=== PATIENT | female | born 1945 | race Caucasian/White ===

== ENCOUNTER 2016-12-23 13:49 | Inpatient (IN) | payer MEDICARE ==
[2016-12-23 14:11] LABS: Glucose,Whole Blood 110 mg/dL (75-99)
[2016-12-23] MEDS ORDERED: SODIUM CHLORIDE 0.9% 1,000 ML IV STA (14:20)
[2016-12-23] MEDS ORDERED: LABETALOL 5 MG/ML VIAL MDV IVP STA ×2 (14:23→17:04)
--- NOTE | 2016-12-23 14:26 | ED ---
Dizziness HPI - General Chief Complaint: Dizziness Stated Complaint: Nausea/ Left Eye brusing Time Seen by Provider: 12/23/16 14:10 Source: family Mode of arrival: wheelchair Limitations: no limitations - History of Present Illness Initial Comments: 71 years old female family noticed that there was a change in the mental status , the conversation is not as fluent as she is also time this is her normal yesterday around 2:30 PM and at that time she was complaining about the headache then her son and [id number] came to their home and today they called around 1 PM Noticed that her conversation was not as so prominent and clear as it has been in the past has been came to her house and brought her to the ER she denies any fall but is complaining about the headache and the neck pain no chest pain or shortness of breath no abdominal pain no frequency urgency dysuria - Related Data Home Medications Medication Instructions Recorded Confirmed Multivitamins, Thera [Multivitamin 1 tab PO DAILY 12/23/16 12/23/16 (formulary)] Allergies Allergy/AdvReac Type Severity Reaction Status Date / Time No Known Allergies Allergy Verified 12/23/16 14:22 Review of Systems ROS Statement: Those systems with pertinent positive or pertinent negative responses have been documented in the HPI. ROS Other: All systems not noted in ROS Statement are negative. Past Medical History Past Medical History: No Reported History History of Any Multi-Drug Resistant Organisms: None Reported Past Surgical History: No Surgical Hx Reported Past Psychological History: No Psychological Hx Reported Smoking Status: Current every day smoker Past Alcohol Use History: None Reported Past Drug Use History: None Reported General Exam - General Exam Comments Initial Comments: General: The patient is awake and alert, in no distress, and does not appear acutely ill. GCS is 15 she is speaking slow Skin: Skin is warm and dry and no rashes or lesions are noted. Eye: Pupils are equal, round and reactive to light, extra-ocular movements are intact; there is normal conjunctiva bilaterally. Ears, nose, mouth and throat: There are moist mucous membranes and no oral lesions. Neck: The neck is supple, there is no tenderness or JVD. Cardiovascular: There is a regular rate and rhythm. No murmur, rub or gallop is appreciated. Respiratory: To auscultation bilateral, crease breath sounds bilateral Gastrointestinal: Soft, non-distended, non-tender abdomen without masses or organomegaly noted. There is no rebound or guarding present. Bowel sounds are unremarkable. Back: There is no tenderness to palpation in the midline. There is no obvious deformity. Musculoskeletal: Normal ROM, no tenderness, There is no pedal edema. There is no calf tenderness or swelling. No cords were appreciated. Neurological: CN II-XII intact, Cranial nerves III through XII are intact. There are no obvious motor or sensory deficits. Coordination appears grossly intact. Speech is normal. Psychiatric: Cooperative, appropriate mood & affect, normal judgment. Limitations: no limitations Course Vital Signs 12/23/16 12/23/16 12/23/16 13:51 14:42 15:00 Temperature 98.6 F Pulse Rate 102 H 92 68 Respiratory 18 18 18 Rate Blood Pressure 210/96 182/79 179/77 O2 Sat by Pulse 95 94 L 96 Oximetry EKG Findings - EKG Comments: EKG Findings:: Is normal sinus rhythm ventricular rate is 93 SD interval is 1: 30 QRS duration is 90 QT/QTc is 378/469 review of this EKG reveals STs ST segment depression in lead 1 and lead 2 and aVF some flattening of the T-wave in lead aVL but it seems more like artifact other leads seems to be in normal range with some depression in V6 as well Medical Decision Making - Lab Data Result diagrams: 12/23/16 14:16 12/23/16 14:16 Lab Results 12/23/16 12/23/16 12/23/16 Range/Units 14:04 14:16 14:16 WBC 13.7 H (3.8-10.6) k/uL RBC 5.00 (3.80-5.40) m/uL Hgb 15.3 (11.4-16.0) gm/dL Hct 46.8 H (34.0-46.0) % MCV 93.5 (80.0-100.0) fL MCH 30.6 (25.0-35.0) pg MCHC 32.7 (31.0-37.0) g/dL RDW 14.0 (11.5-15.5) % Plt Count 349 (150-450) k/uL Neutrophils % 75 % Lymphocytes % 19 % Monocytes % 5 % Eosinophils % 1 % Basophils % 0 % Neutrophils # 10.3 H (1.3-7.7) k/uL Lymphocytes # 2.6 (1.0-4.8) k/uL Monocytes # 0.6 (0-1.0) k/uL Eosinophils # 0.1 (0-0.7) k/uL Basophils # 0.1 (0-0.2) k/uL PT (9.0-12.0) sec INR (<1.1) Sodium 143 (137-145) mmol/L Potassium 4.2 (3.5-5.1) mmol/L Chloride 112 H (98-107) mmol/L Carbon Dioxide 22 (22-30) mmol/L Anion Gap 9 mmol/L BUN 15 (7-17) mg/dL Creatinine 0.71 (0.52-1.04) mg/dL Est GFR (MDRD) Af Amer >60 (>60 ml/min/1.73 sqM) Est GFR (MDRD) Non-Af >60 (>60 ml/min/1.73 sqM) Glucose 107 H (74-99) mg/dL POC Glucose (mg/dL) 110 H (75-99) mg/dL POC Glu Pile Driver Engineer ID Agatha Menendez Plasma Lactic Acid Noe (0.7-2.0) mmol/L Calcium 9.7 (8.4-10.2) mg/dL Total Bilirubin 0.7 (0.2-1.3) mg/dL AST 12 L (14-36) U/L ALT 23 (9-52) U/L Alkaline Phosphatase 104 (38-126) U/L Troponin I (0.000-0.034) ng/mL Total Protein 7.2 (6.3-8.2) g/dL Albumin 4.3 (3.5-5.0) g/dL Urine Color Urine Appearance (Clear) Urine pH (5.0-8.0) Ur Specific [place] (1.001-1.035) Urine Protein (Negative) Urine Glucose (UA) (Negative) Urine Ketones (Negative) Urine Blood (Negative) Urine Nitrite (Negative) Urine Bilirubin (Negative) Urine Urobilinogen (<2.0) mg/dL Ur Leukocyte Esterase (Negative) Urine RBC (0-5) /hpf Urine WBC (0-5) /hpf Ur Squamous Epith Cells (0-4) /hpf Calcium Oxalate Crystal (None) /hpf Amorphous Sediment (None) /hpf Urine Bacteria (None) /hpf Hyaline Casts (0-2) /lpf Urine Mucus (None) /hpf 12/23/16 12/23/16 12/23/16 Range/Units 14:16 14:16 14:33 WBC (3.8-10.6) k/uL RBC (3.80-5.40) m/uL Hgb (11.4-16.0) gm/dL Hct (34.0-46.0) % MCV (80.0-100.0) fL MCH (25.0-35.0) pg MCHC (31.0-37.0) g/dL RDW (11.5-15.5) % Plt Count (150-450) k/uL Neutrophils % % Lymphocytes % % Monocytes % % Eosinophils % % Basophils % % Neutrophils # (1.3-7.7) k/uL Lymphocytes # (1.0-4.8) k/uL Monocytes # (0-1.0) k/uL Eosinophils # (0-0.7) k/uL Basophils # (0-0.2) k/uL PT 10.2 (9.0-12.0) sec INR 1.0 (<1.1) Sodium (137-145) mmol/L Potassium (3.5-5.1) mmol/L Chloride (98-107) mmol/L Carbon Dioxide (22-30) mmol/L Anion Gap mmol/L BUN (7-17) mg/dL Creatinine (0.52-1.04) mg/dL Est GFR (MDRD) Af Amer (>60 ml/min/1.73 sqM) Est GFR (MDRD) Non-Af (>60 ml/min/1.73 sqM) Glucose (74-99) mg/dL POC Glucose (mg/dL) (75-99) mg/dL POC Glu Pile Driver Engineer ID Plasma Lactic Acid Noe (0.7-2.0) mmol/L Calcium (8.4-10.2) mg/dL Total Bilirubin (0.2-1.3) mg/dL AST (14-36) U/L ALT (9-52) U/L Alkaline Phosphatase (38-126) U/L Troponin I <0.012 (0.000-0.034) ng/mL Total Protein (6.3-8.2) g/dL Albumin (3.5-5.0) g/dL Urine Color Yellow Urine Appearance Cloudy H (Clear) Urine pH 6.0 (5.0-8.0) Ur Specific [place] 1.013 (1.001-1.035) Urine Protein 1+ H (Negative) Urine Glucose (UA) Negative (Negative) Urine Ketones 2+ H (Negative) Urine Blood Negative (Negative) Urine Nitrite Positive H (Negative) Urine Bilirubin Negative (Negative) Urine Urobilinogen <2.0 (<2.0) mg/dL Ur Leukocyte Esterase Negative (Negative) Urine RBC 7 H (0-5) /hpf Urine WBC 11 H (0-5) /hpf Ur Squamous Epith Cells 6 H (0-4) /hpf Calcium Oxalate Crystal Occasional H (None) /hpf Amorphous Sediment Occasional H (None) /hpf Urine Bacteria Many H (None) /hpf Hyaline Casts 8 H (0-2) /lpf Urine Mucus Few H (None) /hpf 12/23/16 Range/Units 15:01 WBC (3.8-10.6) k/uL RBC (3.80-5.40) m/uL Hgb (11.4-16.0) gm/dL Hct (34.0-46.0) % MCV (80.0-100.0) fL MCH (25.0-35.0) pg MCHC (31.0-37.0) g/dL RDW (11.5-15.5) % Plt Count (150-450) k/uL Neutrophils % % Lymphocytes % % Monocytes % % Eosinophils % % Basophils % % Neutrophils # (1.3-7.7) k/uL Lymphocytes # (1.0-4.8) k/uL Monocytes # (0-1.0) k/uL Eosinophils # (0-0.7) k/uL Basophils # (0-0.2) k/uL PT (9.0-12.0) sec INR (<1.1) Sodium (137-145) mmol/L Potassium (3.5-5.1) mmol/L Chloride (98-107) mmol/L Carbon Dioxide (22-30) mmol/L Anion Gap mmol/L BUN (7-17) mg/dL Creatinine (0.52-1.04) mg/dL Est GFR (MDRD) Af Amer (>60 ml/min/1.73 sqM) Est GFR (MDRD) Non-Af (>60 ml/min/1.73 sqM) Glucose (74-99) mg/dL POC Glucose (mg/dL) (75-99) mg/dL POC Glu Pile Driver Engineer ID Plasma Lactic Acid Noe 1.1 (0.7-2.0) mmol/L Calcium (8.4-10.2) mg/dL Total Bilirubin (0.2-1.3) mg/dL AST (14-36) U/L ALT (9-52) U/L Alkaline Phosphatase (38-126) U/L Troponin I (0.000-0.034) ng/mL Total Protein (6.3-8.2) g/dL Albumin (3.5-5.0) g/dL Urine Color Urine Appearance (Clear) Urine pH (5.0-8.0) Ur Specific [place] (1.001-1.035) Urine Protein (Negative) Urine Glucose (UA) (Negative) Urine Ketones (Negative) Urine Blood (Negative) Urine Nitrite (Negative) Urine Bilirubin (Negative) Urine Urobilinogen (<2.0) mg/dL Ur Leukocyte Esterase (Negative) Urine RBC (0-5) /hpf Urine WBC (0-5) /hpf Ur Squamous Epith Cells (0-4) /hpf Calcium Oxalate Crystal (None) /hpf Amorphous Sediment (None) /hpf Urine Bacteria (None) /hpf Hyaline Casts (0-2) /lpf Urine Mucus (None) /hpf Critical Care Time Total Critical Care Time: 45 Critical Care Time: On examination noticed that she was bit slow responding but GCS was 15 notice any focal deficits review of the labs and imaging revealed mild leukocytosis white count was 13.7 troponin was negative chemistries were negative urine was definitely positive and CT of the brain was positive CT of the brain showed subacute infarction her doctor she wait O was paged he recommended aspirin 325 mg now para Dopplers EEG homocystine and a lipid panel and MRI of the brain without the contrast. Her blood pressure was quite elevated as was greater than 210 systolic we planned labetalol but then the blood pressure dropped itself now is greater than 200 systolic again I would prefer to bring it down to around 180 not too far low to avoid any secondary damage and she will get labetalol 10 mg IV to start Disposition Clinical Impression: Mental status alteration, CVA (cerebral vascular accident), UTI (urinary tract infection) Disposition: ADMITTED IP TO THIS HOSP Condition: Good Referrals: Dee Marcus MD [Primary Care Provider] - 1-2 days
[2016-12-23 14:41] LABS: Prothrombin Time 10.2 sec (9.0-12.0)
[2016-12-23 14:46] LABS: Amorphous Sediment,Urine Occasional /hpf; Appearance,Urine Cloudy (Clear); Bacteria,Urine Many /hpf; Bilirubin,Urine Negative (Negative); Calcium Oxalate Crystals,Urine Occasional /hpf; Glucose,Urine (UA) Negative (Negative); Ketones,Urine 2+ (Negative); Leukocyte Esterase,Urine Negative (Negative); Mucus,Urine Few /hpf; Nitrite,Urine Positive (Negative); Particle Count 22700; Protein,Urine 1+ (Negative); RBC,Urine 7 /hpf (0-5); Specific Gravity,Urine 1.013 (1.001-1.035); Squamous Epithelial Cell,Urine 6 /hpf (0-4); UA Billing (MACRO vs. MICRO) MICRO; Urobilinogen,Urine <2.0 mg/dL (<2.0); WBC,Urine 11 /hpf (0-5)
[2016-12-23 14:46] LABS: ALT 23 U/L (9-52); AST 12 U/L (14-36); Alkaline Phosphatase 104 U/L (38-126); Anion Gap 9 mmol/L; Blood Urea Nitrogen 15 mg/dL (7-17); Calcium 9.7 mg/dL (8.4-10.2); Carbon Dioxide 22 mmol/L (22-30); Chloride 112 mmol/L (98-107); Glucose 107 mg/dL (74-99); Non-African American GFR(MDRD) >60 (>60 ml/min/1.73 sqM); Potassium 4.2 mmol/L (3.5-5.1); Sodium 143 mmol/L (137-145); Total Bilirubin 0.7 mg/dL (0.2-1.3); Total Protein 7.2 g/dL (6.3-8.2)
[2016-12-23 14:48] LABS: Basophils # (A) 0.1 k/uL (0-0.2); Basophils % (A) 0 %; CHCM 33.4; Eosinophils # (A) 0.1 k/uL (0-0.7); Eosinophils % (A) 1 %; HCT 46.8 % (34.0-46.0); HDW 2.33; HGB 15.3 gm/dL (11.4-16.0); Luc % (Auto) 1; Lymphocytes # (A) 2.6 k/uL (1.0-4.8); Lymphocytes % (A) 19 %; MCH 30.6 pg (25.0-35.0); MCHC 32.7 g/dL (31.0-37.0); MCV 93.5 fL (80.0-100.0); Mean Platelet Volume 8.1; Monocytes # (A) 0.6 k/uL (0-1.0); Monocytes % (A) 5 %; Neutrophils # (A) 10.3 k/uL (1.3-7.7); Neutrophils % (A) 75 %; WBC 13.7 k/uL (3.8-10.6); WBC (Perox) 12.64
--- NOTE | 2016-12-23 15:18 | CT ---
EXAMINATION TYPE: CT brain justus mendoza DATE OF EXAM: 12/23/2016 COMPARISON: NONE HISTORY: Left eye brusing. States of no fall injury. CT DLP: 1315.4 mGycm Automated exposure control for dose reduction was used. TECHNIQUE: CT scan of the head and cervical spine are performed without contrast. FINDINGS: There is a 3 x 1.5 cm area of subtle cortical hypodensity in the right occipital lobe. Th ere is no mass effect. There is no midline shift. There is no sign of intracranial hemorrhage. There is a wedge-shaped 4 cm area of hypodensity in the right posterior parietal lobe. The calvarium is intact. The cervical vertebra have normal alignment. There is mild narrowing at C5-6 C6-7 disc spaces with so me spurring of the endplates. Facet joints are intact. There is mild multilevel hypertrophic facet ar thropathy. The skull base is intact. There is mild pleural thickening at the lung apices. IMPRESSION: Mild spondylotic changes in the cervical spine. No fracture. There is evidence of subacute cortical infarct involving the right occipital lobe and right posterior parietal lobe. No hemorrhage.
--- NOTE | 2016-12-23 15:19 | XR ---
EXAMINATION TYPE: XR chest 2V DATE OF EXAM: 12/23/2016 COMPARISON: NONE HISTORY: Weakness TECHNIQUE: Frontal and lateral views of the chest are obtained. FINDINGS: Heart is normal. There are numerous small calcified granulomata scattered throughout the l ungs. Lungs are clear of consolidation. There is no pleural effusion. Bony thorax shows mild wedging of T5 vertebra with 25% loss of height. IMPRESSION: Healed granulomatous disease. Normal heart. Mild T5 compression fracture of uncertain ag e.
[2016-12-23] MEDS ORDERED: ASPIRIN 325 MG TAB PO STA (17:00)
[2016-12-23] MEDS ORDERED: ASPIRIN 81 MG CHEW PO STA (17:05)
[2016-12-23] MEDS: SODIUM CHLORIDE 0.9% 1,000 ML IV SCH (17:21)
[2016-12-23 20:45] VITALS: BMI 25.6
[2016-12-23] MEDS ORDERED: LABETALOL 5 MG/ML VIAL MDV IVP PRN (20:55)
[2016-12-23] MEDS ORDERED: PRAVASTATIN SODIUM 40 MG TAB PO SCH (21:00)
[2016-12-23] MEDS: ACETAMINOPHEN TAB 325 MG TAB PO PRN (22:31)
[2016-12-24] MEDS: SODIUM CHLORIDE 0.9% 1,000 ML IV SCH ×3 (02:01→18:09)
[2016-12-24] MEDS: HEPARIN SODIUM,PORCINE 5,000 UNIT/ML 1 ML VIAL SQ SCH ×3 (02:02→20:55)
[2016-12-24] MEDS ORDERED: LABETALOL 5 MG/ML VIAL MDV IVP PRN (02:09)
[2016-12-24 06:51] LABS: Cholesterol 236 mg/dL (<200); HDL Cholesterol 59 mg/dL (40-60); Triglycerides 154 mg/dL (<150)
--- NOTE | 2016-12-24 08:05 | MR ---
EXAMINATION TYPE: MR brain wo con DATE OF EXAM: 12/24/2016 COMPARISON: CT brain from yesterday HISTORY: cva per order. Admitted for left thigh bruising and headache one day earlier. TECHNIQUE: Multiplanar, multisequence imaging of the brain and brainstem is performed without IV cont rast. FINDINGS: Diffusion weighted images demonstrate abnormal area corresponding to CT involving the inferior right occipital lobe that shows increased signal on diffusion-weighted images with diminished signal on ADC mapping that shows T1 hypointensity and T2 hyperintensity with some sulcal edema measuring approxima tely 3.6 x 2.3 cm on image 88 series 305 system with evolving acute/subacute infarct estimated a few days in age. Superior to this there is larger area of involvement in the posterior watershed seen on image 152 series 305 measuring approximately 4.0 x 4.5 cm. There are additional scattered punctate ar eas of increased signal diffusion weighted images with diminished signal ADC mapping and T2 hyperinte nsity throughout the higher right frontal and parietal regions. There is no worrisome extra-axial fluid collection. The ventricular system and cisternal spaces are normal in size and appearance. The brain volume is age appropriate. There are some scattered foci of T2 hyperintensity seen throughout the white matter bilaterally. Lesions are nonspecific in appearanc e and distribution but most likely on basis of product of chronic small vessel ischemic change. Ponti ne involvement is noted. Midline structures demonstrate normal morphology. The craniocervical junction appears within normal limits. Normal vascular flow voids are present. There is dominant left vertebral artery. The visualiz ed sinuses are clear and the globes are intact. IMPRESSION: 1. Multifocal areas of acute/subacute infarction involving the right brain in multivessel distributio n (anterior and posterior circulation), largest areas of infarct are right parietal occipital posteri or watershed region and inferior right occipital lobe. 2. Background of fairly moderate chronic small vessel ischemic change noted.
--- NOTE | 2016-12-24 08:47 | P.CRDCN ---
<Donna Hernandez E - Last Filed: 12/24/16 08:54> History of Present Illness Consult date: 12/24/16 Requesting physician: Kaycee Kumar Reason for Consult (text): CVA Chief complaint: headache, expressive aphasia and slurred speech History of present illness: This is a pleasant 71-year-old female with no prior documented history of hypertension, no diabetes, no hyperlipidemia, no prior arrhythmia, most of the history was obtained from the [id number] who has at the bedside. Apparently patient was in her usual state of health yesterday, started to complain of headache, the [id number] states they called her later in the evening to see how her headache wasn't noticed that she had slurring of speech. When they went over to her home they noticed a laundry basket tipped over, and it appeared that the patient may have fallen however she denied that. She does have significant ecchymosis to the left orbital area. For these reasons she was brought to the emergency room for further evaluation. Blood pressure on arrival to the emergency room at 210/96 with a heart rate of 102. 95% on room air and temperature 98.6. EKG on arrival showed a normal sinus rhythm with nonspecific ST-T wave changes. Chest x-ray did not reveal any acute findings. Head and cervical spine CT revealed mild spondylitic changes in the spine with no fracture. There is evidence of subacute cortical infarct involving the right occipital lobe and right posterior parietal lobe. No hemorrhage. MRI of the brain revealed multifocal areas of acute/subacute infarction involving the right brain in multivessel distribution. Largest areas of infarct or right parietal-occipital posterior watershed region and inferior right occipital lobe. Background of fairly moderate chronic small vessel ischemia noted. At the time of my examination this morning, patient has continued significant expressive aphasia, she also has a noted left facial droop and significant weakness in her left arm. Blood pressure this morning 198/84, temperature 99.4, heart rate in the 70s. 93% on room air. CBC 13.7, hemoglobin 15.3, platelet count 349. Sodium 143, potassium 4.2, BUN 15, creatinine 0.7. Troponin 0.012. Chol 236, Trig 154, LDL 146,HDL 59. Past Medical History Past Medical History: No Reported History History of Any Multi-Drug Resistant Organisms: None Reported Past Surgical History: No Surgical Hx Reported Past Psychological History: No Psychological Hx Reported Smoking Status: Current every day smoker Past Alcohol Use History: None Reported Past Drug Use History: None Reported - Past Family History Father Family Medical History: Coronary Artery Disease (CAD) Medications and Allergies Home Medications Medication Instructions Recorded Confirmed Type Multivitamins, Thera [Multivitamin 1 tab PO DAILY 12/23/16 12/23/16 History (formulary)] Allergies Allergy/AdvReac Type Severity Reaction Status Date / Time No Known Allergies Allergy Verified 12/23/16 14:22 Physical Exam Vitals: Vital Signs Temp Pulse Pulse Resp BP BP Pulse Ox 12/24/16 06:00 72 16 198/84 93 L 12/24/16 04:00 99.4 F 80 20 177/75 95 12/24/16 02:25 189/79 12/24/16 02:00 99.7 F H 79 16 205/84 94 L 12/24/16 00:00 100.1 F H 80 16 176/77 94 L 12/23/16 22:00 87 16 179/67 94 L 12/23/16 21:30 85 188/80 12/23/16 21:05 81 178/83 12/23/16 21:00 77 212/84 12/23/16 20:00 99.0 F 84 16 217/92 94 L 12/23/16 18:53 98.2 F 76 16 190/82 97 12/23/16 18:00 98.6 F 68 18 155/76 12/23/16 17:00 81 18 170/135 94 L 12/23/16 15:00 68 18 179/77 96 12/23/16 14:42 92 18 182/79 94 L 12/23/16 13:51 98.6 F 102 H 18 210/96 95 Intake and Output 12/23/16 12/24/16 12/24/16 22:59 06:59 14:59 Intake Total 800 800 Output Total 400 350 Balance 400 450 Intake: IV 800 800 Sodium Chloride 0.9% 1, 800 800 000 ml @ 100 mls/hr IV . Q10H [facility] Rx#:[id number] Output: Urine 400 350 Other: Voiding Method Bedside Commode Bedside Commode # Voids 1 1 Weight 63.503 kg 64.5 kg PHYSICAL EXAMINATION: HEENT: Head is atraumatic, normocephalic. Pupils equal, round. Neck is supple. There is no elevated jugular venous pressure. HEART EXAMINATION: Heart S1, S2 normal. No murmur or gallop heard. CHEST EXAMINATION: Lungs are clear to auscultation and precussion. No chest wall tenderness is noted on palpation or with deep breathing. ABDOMEN: Soft, nontender. Bowel sounds are heard. No organomegaly noted. EXTREMITIES: 2+ peripheral pulses with no evidence of peripheral edema and no calf tenderness noted. NEUROLOGIC patient is awake, alert , positive expressive aphasia and slurring of speech, positive left-sided facial droop and left arm weakness. . Results 12/23/16 14:16 12/23/16 14:16 Cardiac Enzymes 12/23/16 12/23/16 Range/Units 14:16 14:16 AST 12 L (14-36) U/L Troponin I <0.012 (0.000-0.034) ng/mL Coagulation 12/23/16 Range/Units 14:16 PT 10.2 (9.0-12.0) sec Lipids 12/24/16 Range/Units 06:02 Triglycerides 154 H (<150) mg/dL Cholesterol 236 H (<200) mg/dL HDL Cholesterol 59 (40-60) mg/dL CBC 12/23/16 Range/Units 14:16 WBC 13.7 H (3.8-10.6) k/uL RBC 5.00 (3.80-5.40) m/uL Hgb 15.3 (11.4-16.0) gm/dL Hct 46.8 H (34.0-46.0) % Plt Count 349 (150-450) k/uL Comprehensive Metabolic Panel 12/23/16 Range/Units 14:16 Sodium 143 (137-145) mmol/L Potassium 4.2 (3.5-5.1) mmol/L Chloride 112 H (98-107) mmol/L Carbon Dioxide 22 (22-30) mmol/L BUN 15 (7-17) mg/dL Creatinine 0.71 (0.52-1.04) mg/dL Glucose 107 H (74-99) mg/dL Calcium 9.7 (8.4-10.2) mg/dL AST 12 L (14-36) U/L ALT 23 (9-52) U/L Alkaline Phosphatase 104 (38-126) U/L Total Protein 7.2 (6.3-8.2) g/dL Albumin 4.3 (3.5-5.0) g/dL Current Medications Generic Name Dose Route Start Last Admin Trade Name Freq PRN Reason Stop Dose Admin Acetaminophen 650 mg 12/23/16 21:02 12/23/16 22:31 Tylenol Tab PO 650 mg Q6HR PRN Administration Fever and/ or Mild Pain Aspirin 325 mg 12/24/16 09:00 Aspirin PO DAILY [facility] Heparin Sodium (Porcine) 5,000 unit 12/24/16 01:15 12/24/16 02:02 Heparin SQ 5,000 unit Q12HR [facility] Administration Sodium Chloride 1,000 mls @ 100 mls/hr 12/23/16 17:00 12/24/16 02:01 Saline 0.9% IV 100 mls/hr .Q10H [facility] Administration Ceftriaxone Sodium 1,000 mg/ 50 mls @ 100 mls/hr 12/24/16 17:00 Sodium Chloride IVPB Q24H [facility] Labetalol HCl 10 mg 12/24/16 02:09 Trandate IVP Q4H PRN Blood Pressure - High Multivitamins 1 each 12/24/16 12:00 Theragran PO 1200 [facility] Pantoprazole Sodium 40 mg 12/24/16 09:00 Protonix IVP DAILY [facility] Pravastatin Sodium 40 mg 12/23/16 21:00 12/23/16 21:29 Pravachol PO 40 mg HS [facility] Administration Intake and Output 12/23/16 12/24/16 12/24/16 22:59 06:59 14:59 Intake Total 800 800 Output Total 400 350 Balance 400 450 Intake: IV 800 800 Sodium Chloride 0.9% 1, 800 800 000 ml @ 100 mls/hr IV . Q10H [facility] Rx#:[id number] Output: Urine 400 350 Other: Voiding Method Bedside Commode Bedside Commode # Voids 1 1 Weight 63.503 kg 64.5 kg 12/23/16 14:16 12/23/16 14:16 EKG Interpretations (text) EKG shows normal sinus rhythm with nonspecific ST-T wave changes Assessment and Plan Plan: Assessment and plan #1 acute CVA #2 hypertensive urgency Plan Cardiology has been requested to perform a RANJIT, the risks and benefits were explained to the patient and her [id number] this morning. This will be performed today by Dr. Zuniga. We will obtain an echocardiogram with Doppler study. Monitor blood pressure closely, not lowering the blood pressure too significantly in the setting of an acute CVA. Further recommendations to follow. DNP note has been reviewed, I agree with a documented findings and plan of care. Patient was seen and examined. <Jerman Zuniga - Last Filed: 12/24/16 08:56> Physical Exam Vitals: Vital Signs Temp Pulse Pulse Resp BP BP Pulse Ox 12/24/16 06:00 72 16 198/84 93 L 12/24/16 04:00 99.4 F 80 20 177/75 95 12/24/16 02:25 189/79 12/24/16 02:00 99.7 F H 79 16 205/84 94 L 12/24/16 00:00 100.1 F H 80 16 176/77 94 L 12/23/16 22:00 87 16 179/67 94 L 12/23/16 21:30 85 188/80 12/23/16 21:05 81 178/83 12/23/16 21:00 77 212/84 12/23/16 20:00 99.0 F 84 16 217/92 94 L 12/23/16 18:53 98.2 F 76 16 190/82 97 12/23/16 18:00 98.6 F 68 18 155/76 12/23/16 17:00 81 18 170/135 94 L 12/23/16 15:00 68 18 179/77 96 12/23/16 14:42 92 18 182/79 94 L 12/23/16 13:51 98.6 F 102 H 18 210/96 95 Intake and Output 12/23/16 12/24/16 12/24/16 22:59 06:59 14:59 Intake Total 800 800 Output Total 400 350 Balance 400 450 Intake: IV 800 800 Sodium Chloride 0.9% 1, 800 800 000 ml @ 100 mls/hr IV . Q10H [facility] Rx#:[id number] Output: Urine 400 350 Other: Voiding Method Bedside Commode Bedside Commode # Voids 1 1 Weight 63.503 kg 64.5 kg Results 12/23/16 14:16 12/23/16 14:16 Cardiac Enzymes 12/23/16 12/23/16 Range/Units 14:16 14:16 AST 12 L (14-36) U/L Troponin I <0.012 (0.000-0.034) ng/mL Coagulation 12/23/16 Range/Units 14:16 PT 10.2 (9.0-12.0) sec Lipids 12/24/16 Range/Units 06:02 Triglycerides 154 H (<150) mg/dL Cholesterol 236 H (<200) mg/dL HDL Cholesterol 59 (40-60) mg/dL CBC 12/23/16 Range/Units 14:16 WBC 13.7 H (3.8-10.6) k/uL RBC 5.00 (3.80-5.40) m/uL Hgb 15.3 (11.4-16.0) gm/dL Hct 46.8 H (34.0-46.0) % Plt Count 349 (150-450) k/uL Comprehensive Metabolic Panel 12/23/16 Range/Units 14:16 Sodium 143 (137-145) mmol/L Potassium 4.2 (3.5-5.1) mmol/L Chloride 112 H (98-107) mmol/L Carbon Dioxide 22 (22-30) mmol/L BUN 15 (7-17) mg/dL Creatinine 0.71 (0.52-1.04) mg/dL Glucose 107 H (74-99) mg/dL Calcium 9.7 (8.4-10.2) mg/dL AST 12 L (14-36) U/L ALT 23 (9-52) U/L Alkaline Phosphatase 104 (38-126) U/L Total Protein 7.2 (6.3-8.2) g/dL Albumin 4.3 (3.5-5.0) g/dL Current Medications Generic Name Dose Route Start Last Admin Trade Name Freq PRN Reason Stop Dose Admin Acetaminophen 650 mg 12/23/16 21:02 12/23/16 22:31 Tylenol Tab PO 650 mg Q6HR PRN Administration Fever and/ or Mild Pain Aspirin 325 mg 12/24/16 09:00 Aspirin PO DAILY [facility] Atorvastatin Calcium 40 mg 12/24/16 09:00 Lipitor PO DAILY [facility] Heparin Sodium (Porcine) 5,000 unit 12/24/16 01:15 12/24/16 02:02 Heparin SQ 5,000 unit Q12HR [facility] Administration Sodium Chloride 1,000 mls @ 100 mls/hr 12/23/16 17:00 12/24/16 02:01 Saline 0.9% IV 100 mls/hr .Q10H [facility] Administration Ceftriaxone Sodium 1,000 mg/ 50 mls @ 100 mls/hr 12/24/16 17:00 Sodium Chloride IVPB Q24H [facility] Labetalol HCl 10 mg 12/24/16 02:09 Trandate IVP Q4H PRN Blood Pressure - High Lisinopril 5 mg 12/24/16 09:00 Zestril PO BID [facility] Multivitamins 1 each 12/24/16 12:00 Theragran PO 1200 [facility] Pantoprazole Sodium 40 mg 12/24/16 09:00 Protonix IVP DAILY [facility] Intake and Output 12/23/16 12/24/16 12/24/16 22:59 06:59 14:59 Intake Total 800 800 Output Total 400 350 Balance 400 450 Intake: IV 800 800 Sodium Chloride 0.9% 1, 800 800 000 ml @ 100 mls/hr IV . Q10H [facility] Rx#:[id number] Output: Urine 400 350 Other: Voiding Method Bedside Commode Bedside Commode # Voids 1 1 Weight 63.503 kg 64.5 kg 12/23/16 14:16 12/23/16 14:16
--- NOTE | 2016-12-24 11:03 | ECHOF ---
Referral Reason:Stroke MEASUREMENTS -------- HEIGHT: 157.5 cm WEIGHT: 63.5 kg BP: 198/84 RVIDd: 2.6 cm (< 3.3) IVSd: 1.1 cm (0.6 - 1.1) LVIDd: 4.8 cm (3.9 - 5.3) LVPWd: 0.9 cm (0.6 - 1.1) IVSs: 1.6 cm LVIDs: 4.1 cm LVPWs: 1.0 cm LAESV Index (A-L): 30.91 ml/m Ao Diam: 3.4 cm (2.0 - 3.7) AV Cusp: 1.6 cm (1.5 - 2.6) LA Diam: 3.6 cm (2.7 - 3.8) MV EXCURSION: 16.095 mm (> 18.000) MV EF SLOPE: 74 mm/s (70 - 150) EPSS: 1.0 cm MV E Jaswinder: 0.83 m/s MV DecT: 152 ms MV A Jaswinder: 0.85 m/s MV E/A Ratio: 0.98 RAP: 5.00 mmHg RVSP: 24.13 mmHg FINDINGS -------- Sinus rhythm. This was a technically adequate study. There is mild concentric left ventricular hypertrophy. Overall left ventricular systolic function is low-normal with, an EF between 50 - 55 %. The right ventricle is normal in size. LA is midly dilated 29-33ml/m2. The right atrial size is normal. There is mild aortic valve sclerosis. There is no evidence of aortic regurgitation. Mild mitral annular calcification present. Mild mitral regurgitation is present. Mild tricuspid regurgitation present. There is no evidence of pulmonary hypertension. The right ventricular systolic pressure, as measured by Doppler, is 24.13mmHg. There is no pulmonic regurgitation present. The aortic root size is normal. There is no pericardial effusion. CONCLUSIONS -------- 1. There is mild concentric left ventricular hypertrophy. 2. The aortic root size is normal. 3. Overall left ventricular systolic function is low-normal with, an EF between 50 - 55 %. 4. LA is midly dilated 29-33ml/m2. 5. There is mild aortic valve sclerosis. 6. Mild mitral annular calcification present. 7. Mild mitral regurgitation is present. 8. Mild tricuspid regurgitation present. 9. There is no evidence of pulmonary hypertension. 10. The right ventricular systolic pressure, as measured by Doppler, is 24.13mmHg. EPIDEMIOLOGY INTERN: Shannan Beckwith RDCS
[2016-12-24] MEDS: BENZOCAINE SPRAY 100 APPLIC/CAN MUCOUS MEM ONE ×2 (11:10→11:15)
[2016-12-24] MEDS ORDERED: SODIUM CHLORIDE 0.9% 500 ML IV ONE (11:11)
[2016-12-24] MEDS ORDERED: MIDAZOLAM 2 MG/2 ML VIAL IVP ONE (11:28)
[2016-12-24] MEDS ORDERED: fentaNYL (PF) 50 MCG/ML 2 ML AMP IV ONE (11:29)
[2016-12-24] MEDS: ASPIRIN 325 MG TAB PO SCH ×2 (12:38→20:55)
[2016-12-24] MEDS: PANTOPRAZOLE 40 MG/10 ML VIAL IVP SCH (12:38)
[2016-12-24] MEDS: LISINOPRIL 5 MG TAB PO SCH ×3 (12:38→20:55)
[2016-12-24] MEDS: ATORVASTATIN 40 MG TAB PO SCH ×2 (12:39→20:55)
[2016-12-24] MEDS: MULTIVITAMINS, THERA 1 EACH TAB PO SCH (12:39)
[2016-12-24] MEDS: ONDANSETRON 4 MG/2 ML VIAL IVP PRN ×2 (13:03→18:09)
--- NOTE | 2016-12-24 13:33 | HP ---
DATE OF ADMISSION: 12/23/2016 CHIEF COMPLAINT: Dizziness and possible stroke. HISTORY OF PRESENT ILLNESS: This 71-year-old woman with a past medical history of multiple medical issues being followed by Dr. Marcus in the outpatient setting, was noted to have change in mental status per the family this morning. The patient had dizziness and patient had some dysarthria. The patient was normal at 2:30 p.m. yesterday after that, patient was complaining of headache and some dizziness and this morning when the family checked on the patient, the patient was found to have a bruise on the left eye and the patient will also was found to have left side of the body. Patient taken to [facility] and was admitted for further evaluation and treatment. The CAT scan of the brain was done which showed 3 x 1.5 cm area of subtle cortical hypodensity in the right occipital lobe and there is no mass effect or midline shift but shaped area of hypodensity in the right posterior parietal lobe was also noted. The patient admitted to the hospital for further evaluation and treatment. Neurology evaluation and Cardiology evaluation has been sought and the patient is also scheduled for RANJIT also. There is no history of any fever, rigors or chills. No history of headache, loss of consciousness or seizures. PAST MEDICAL HISTORY: ntd. Medications prior to admission are multivitamins one p.o. daily. ALLERGIES: None. FAMILY HISTORY: History of coronary artery disease. SOCIAL HISTORY: History of smoking. No history of alcohol intake. REVIEW OF SYSTEMS: ENT: Mentioned earlier. CARDIOVASCULAR: No angina or palpitations. RESPIRATORY: As mentioned earlier. GI: No nausea. : No dysuria. Nervous system: No numbness or weakness. ALLERGY/IMMUNOLOGY: No asthma or hayfever. MUSCULOSKELETAL: As mentioned earlier. HEMATOLOGY/ONCOLOGY: No history of anemia. ENDOCRINE: No history of diabetes mellitus or hypothyroidism. CONSTITUTIONAL: As mentioned earlier. DERMATOLOGY: Negative. RHEUMATOLOGY: Negative. PSYCHIATRY: As mentioned earlier. PHYSICAL EXAMINATION: The patient is alert, oriented times two. The patient is . Pulse 72, blood pressure 190/82, respiratory rate 16. Temperature 98.2. Pulse ox is 97% on room air. The blood pressure was elevated to 171/70. HEENT: Conjunctivae normal. Oral mucosa moist. NECK: No jugular venous distention. No carotid bruit. No lymph node enlargement. CARDIOVASCULAR: S1, S2 muffled. No murmur. No thrills. RESPIRATORY: Breath sounds diminished at the bases. No rhonchi or crackles. ABDOMEN: Soft. Nontender. No mass palpable. No hepatosplenomegaly. LEGS: No edema. No swelling. CENTRAL NERVOUS SYSTEM: Higher functions as mentioned earlier. Cranial nerves conjugate gaze deviation to the right present otherwise, left facial drooping and flattening present. Significant weakness left upper and lower limbs present with Grade 2 to 3. Pulses are diminished. Gait not tested. Skin: No ulcer, rash or bleeding. LYMPHATICS: No lymph nodes palpable in the neck, axillae or groin. Joints: No active deforming arthropathy. Lab investigations at this time shows: CT scan noted. Otherwise, WBC is 13.7, glucose 107, UA appears showing multiple abnormalities. ASSESSMENT: 1. Acute stroke involving the right occipital lobe and right posterior parietal lobe causing left-sided weakness and conjugate gaze paralysis to the left. 2. Active hypertension with hypertensive urgency. 3. Rule out urinary tract infection. 4. Increased random blood sugar. 5. History of nicotine dependence. 6. Increased WBC. 7. Dysarthria. 8. FULL CODE. RECOMMENDATIONS AND DISCUSSION: This 71-year-old woman who presented with the multiple complex medical problems, we will monitor the patient closely. Continue current medications, continue symptomatic treatment. We will continue with antiplatelet agents. Complete neurovascular work-up. Neurochecks. Neurology evaluation. 2-D echo carotid Doppler. Other than MRA of the brain, possible RANJIT. Guarded prognosis because of multiple complex medical issues. Further recommendations to follow. See orders for further details. I would also recommend DVT prophylaxis, urine cultures and empiric antibiotics. Guarded prognosis. Copy of dictation forwarded to Dr. Marcus who is the primary physician. [facility]
--- NOTE | 2016-12-24 16:09 | ECHOT ---
DATE OF SERVICE: CLINICAL INFORMATION: INDICATION: Evaluation of intracardiac thrombus. PROCEDURE: After explaining the procedure to the patient as well as the risks and complications, her blood pressure, heart rate, O2 saturation were monitored. The throat was sprayed with Cetacaine. She received 25 mcg intravenous fentanyl, 1 mg intravenous Versed. After obtaining moderate conscious sedated state, the probe was introduced into the esophagus without difficulty. Images were obtained. Following that, the probe was removed. There were no immediate complications. FINDINGS: Left ventricular size and systolic function were normal. The left atrial appendage is normal. The aortic valve, mitral valve, tricuspid valve are normal. The descending thoracic aortic appears to be normal. No pericardial effusion was noted. Contrast bubble study revealed no evidence of shunting across the interatrial septum. No pericardial effusion was noted. Doppler pulse wave obtained revealed mild mitral and tricuspid regurgitation. There is no shunting by color Doppler study. CONCLUSION: 1. Normal ventricular size and systolic function. 2. Normal appearance of the left atrial appendage. 3. Mild mitral and tricuspid regurgitation. 4. No evidence of shunting across the interatrial septum. 5. Normal appearance of the descending thoracic aorta.
--- NOTE | 2016-12-24 16:36 | US ---
EXAMINATION TYPE: US carotid duplex BILAT DATE OF EXAM: 12/24/2016 COMPARISON: NONE CLINICAL HISTORY: Stenosis. EXAM MEASUREMENTS: RIGHT: Peak Systolic Velocity (PSV) cm/sec ----- Right CCA: 50.5 ----- Right ICA: appears occluded ----- Right ECA: 235.8 ICA/CCA ratio: --- RIGHT: End Diastole cm/sec ----- Right CCA: 10.4 ----- Right ICA: appears occluded ----- Right ECA: 29.5 LEFT: Peak Systolic Velocity (PSV) cm/sec ----- Left CCA: 97.9 ----- Left ICA: 202.4 ----- Left ECA: 137.2 ICA/CCA ratio: 2.1 LEFT: End Diastole cm/sec ----- Left CCA: 23.6 ----- Left ICA: 51.8 ----- Left ECA: 7.1 VERTEBRALS (direction of flow): Right Vertebral: Antegrade Left Vertebral: Antegrade Right ICA appears occluded, no flow with color, or pulsed wave and power doppler. Left ICA appears to have some mild plaque with mild velocity increase. 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 Atheromatous changes are present withi n the carotid arteries.
[2016-12-24] MEDS ORDERED: RX INFO: IV CONTRAST WAS GIVEN 1 EACH MISC MISCELLANE PRN (23:12)
--- NOTE | 2016-12-24 23:54 | CONS ---
DATE OF CONSULTATION: 12/24/2016 CHIEF COMPLAINT: Stroke. HISTORY OF PRESENT ILLNESS: Mrs. Garcia is a pleasant 71-year-old female who is being evaluated by the neurology service per the request of for a stroke. The patient was brought into [facility] Emergency Room with the main complaint of altered mental status and some language difficulties. The patient presented out of the window for TPA therapy, as she was last seen normal 11 hours prior. The patient's blood pressure was found to be significantly elevated at 210/96. A CT scan of the brain was done which showed evidence of subacute infarct involving the right occipital and right parietal lobes. I did order an MRI of the brain, which did show evidence of acute infarct involving both the right occipital lobe and the right parietal lobe. Due to these findings, a transesophageal echocardiogram was ordered, but it showed no evidence of any intracardiac thrombus. The patient was not on any antiplatelet therapy at home. She was started on aspirin and admitted for further workup and management. I did review her EEG, which was normal. Her carotid Doppler showed evidence of right internal carotid artery occlusion. Her comprehensive metabolic profile and cardiac enzymes and serum homocysteine level were normal. Her CBC showed mild leukocytosis at 13.7 and her fasting lipid panel showed dyslipidemia with a cholesterol of 236 and an LDL of 146. At the time of my evaluation, the patient is lying in her bed and appears to be in no acute distress. She does have obvious left-sided weakness. She denied any swallowing difficulties. PAST MEDICAL HISTORY: None reported. SOCIAL HISTORY: The patient is a current everyday smoker. She denies any alcohol or drug use. FAMILY HISTORY: Noncontributory. HOME MEDICATIONS: Multivitamin. ALLERGIES: NO KNOWN DRUG ALLERGIES. REVIEW OF SYSTEMS: CONSTITUTIONAL: Negative. EYES: Positive for decreased vision. ENT: Negative. CARDIOVASCULAR: Negative. RESPIRATORY: Negative. NEUROLOGICAL: As mentioned above. She does report weakness on the left side as well. GASTROINTESTINAL: Negative. GENITOURINARY: Negative. PSYCHIATRIC: Negative. ENDOCRINE: Negative. DERMATOLOGICAL: Negative. MUSCULOSKELETAL: Positive for occasional joint pain. PHYSICAL EXAM: Vital signs show a temperature of 98.9, pulse 66, respiration 16, blood pressure 191/77. GENERAL APPEARANCE: The patient is a well-developed elderly female who appears to be in no acute distress. HEENT: Mild bruising is noticed around the left eye. The patient does have left facial weakness. Extraocular muscle testing showed left gaze palsy. Neck is supple with no masses felt. CARDIOVASCULAR: Regular rate and rhythm. ABDOMEN: Nontender, nondistended. EXTREMITIES: No edema or clubbing. NEUROLOGICAL EXAM: The patient is oriented to person only. She knew she was in the hospital but could not recall which one. She could not recall the year. She does follow commands appropriately. She does have left side neglect. Strength appears to be 5 minus out of 5 on the right upper and lower extremity, 4+/5 on the left lower extremity, and 3/5 on the left upper extremity. Pronator drift is seen on the left side. The patient has a left visual field cut and left facial weakness noticed on cranial nerve testing. She also has a left gaze palsy. No seizure-like activity is seen. IMPRESSION: 1. Acute ischemic strokes, right parietal and occipital lobes. 2. Left visual field cut. 3. Left hemiparesis. 4. Right internal carotid artery occlusion. 5. Elevated blood pressure. RECOMMENDATIONS: The patient has multiple acute ischemic strokes involving different vascular distribution. Initially, embolic etiology was of concern, and a transesophageal echocardiogram was done which showed no evidence of any intracardiac thrombus. Her carotid Doppler does show evidence of occlusion of the right internal carotid artery. I will order a CT angiogram of the neck for verification. I will keep her on aspirin 325 mg daily. Continue IV hydration as tolerated. I will start her on statin therapy for her dyslipidemia and she will be on Protonix for GI prophylaxis and heparin for DVT prophylaxis. Speech Therapy, Occupational Therapy, and Physical Therapy will be consulted. Continue neurologic checks. I will continue to follow with you. Further recommendations to follow. Thank you for allowing me to participate in the care of your patient. If you have any questions, please feel free to contact me.
[2016-12-25] MEDS: SODIUM CHLORIDE 0.9% 1,000 ML IV SCH ×3 (00:11→17:48)
[2016-12-25 06:25] LABS: Basophils % (A) 0 %; CH 30.5; CHCM 33.2; Eosinophils # (A) 0.1 k/uL (0-0.7); Eosinophils % (A) 1 %; HCT 38.6 % (34.0-46.0); HDW 2.37; HGB 12.6 gm/dL (11.4-16.0); Luc # (Auto) 0.16; Luc % (Auto) 2; Lymphocytes # (A) 2.6 k/uL (1.0-4.8); Lymphocytes % (A) 25 %; MCH 30.1 pg (25.0-35.0); MCHC 32.7 g/dL (31.0-37.0); MCV 92.2 fL (80.0-100.0); Mean Platelet Volume 7.8; Monocytes # (A) 0.6 k/uL (0-1.0); Monocytes % (A) 5 %; Neutrophils # (A) 7.1 k/uL (1.3-7.7); Neutrophils % (A) 68 %; RBC 4.18 m/uL (3.80-5.40); WBC 10.5 k/uL (3.8-10.6); WBC (Perox) 10.92
[2016-12-25 06:37] LABS: Anion Gap 5 mmol/L; Blood Urea Nitrogen 12 mg/dL (7-17); Calcium 8.7 mg/dL (8.4-10.2); Carbon Dioxide 25 mmol/L (22-30); Chloride 111 mmol/L (98-107); Glucose 89 mg/dL (74-99); Non-African American GFR(MDRD) >60 (>60 ml/min/1.73 sqM); Potassium 3.5 mmol/L (3.5-5.1); Sodium 141 mmol/L (137-145)
--- NOTE | 2016-12-25 08:10 | EEG ---
DATE OF SERVICE: 12/24/2016 INDICATIONS FOR EXAMINATION: Altered mental status. AGE: 71Y DESCRIPTION OF THE PROCEDURE: This EEG was performed using a 21-channel digital electroencephalograph, following the international 10 to 20 system. DESCRIPTION OF THE RECORDING: From the beginning of the tracing, and with the patient's eyes closed, the background rhythm was mostly consisting of 8 Hz alpha frequency in the posterior occipital leads. No obvious asymmetry is seen. Photic stimulation was performed with a minimal driving response seen. No pathological waves were elicited. Hyperventilation was not performed. Frequent muscle and occasional movement artifacts are seen. The patient remains awake throughout the tracing. No epileptiform discharges were seen. Her EKG lead showed a regular rate and rhythm. INTERPRETATION: This awake EEG can be considered within normal limits. There was no asymmetry seen. No epileptiform discharges were noticed. The absence of epileptiform discharges does not rule out the diagnosis of epilepsy, therefore, clinical correlation is recommended.
[2016-12-25] MEDS: HEPARIN SODIUM,PORCINE 5,000 UNIT/ML 1 ML VIAL SQ SCH ×2 (09:22→21:35)
[2016-12-25] MEDS: PANTOPRAZOLE 40 MG/10 ML VIAL IVP SCH (09:22)
[2016-12-25] MEDS: ASPIRIN 325 MG TAB PO SCH (09:22)
[2016-12-25] MEDS: LISINOPRIL 5 MG TAB PO SCH (09:22)
[2016-12-25] MEDS: ATORVASTATIN 40 MG TAB PO SCH (09:23)
--- NOTE | 2016-12-25 10:27 | CT ---
EXAMINATION TYPE: CT ANGIO NECK WITH 3-D RECONSTRUCTION RENDERINGS DATE OF EXAM: 12/25/2016 8:28 AM COMPARISON: Carotid Doppler ultrasound December 24, 2016 HISTORY: Carotid Stenosis CT DLP: 209.5 mGycm Automated exposure control for dose reduction was used. TECHNIQUE: Departmental CTA technique with multiple 3-D reconstruction renderings obtained at an [employer] workstation. Additional 0.5 mm axial source image data set was obtained. Performed with IV Contrast, patient injected with 65 mL of Omnipaque 350. FINDINGS: Carotid Circulation: The aortic arch and great vasculature origins are unremarkable. The bilateral sams bclavian and bilateral common carotids are widely patent throughout their extent. There is occlusion of the right ICA at its origin, with reconstitution of the ICA via collaterals within this cavernous sinus portion. There is tortuosity and plaque throughout the proximal left ICA, consistent with mild luminal diameter narrowing. Vertebral Circulation: The right vertebral artery has a narrow caliber throughout its extent, congeni jacoby variant anatomy. At the C1 level there are multifocal right vertebral arterial stenoses which diana ear to be flow-limiting, there is reconstitution of the right vertebral artery immediately prior to i ts forming the basilar artery, which is predominantly formed from the hypertrophied left vertebral ar marilin. The left vertebral artery is widely patent throughout its course. The basilar artery is widely patent, and mildly tortuous. Miscellaneous: The visualized lung apices, soft tissues, skeletal structures, and intracranial conten ts are unremarkable. IMPRESSION: 1. 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 2. MILD PROXIMAL LEFT ICA STENOSIS. 3. DISTAL RIGHT VERTEBRAL ARTERY STENOSES.
--- NOTE | 2016-12-25 10:51 | PN ---
DATE OF SERVICE: 12/24/2016 This 71-year-old woman who was admitted with dizziness and features of stroke with significant weakness on the left side of body had acute stroke in one of the right occipital, right posterior parietal and causing left-sided weakness and conjugate gaze also. The patient was closely monitored. The patient also had acute hypertension also. Otherwise, the brain MRI was done, which showed multifocal areas of acute subacute infarction involving the right brain multivessel distribution, anterior and posterior circulation, largest area of infarct in the right posterior occipital and posterior watershed area and inferior right occipital area and a background of fairly moderate chronic ischemic vessel changes. Also had 2-D echo done, which showed ejection fraction 50% to 55% and mild valve abnormality including mitral regurgitation and tricuspid regurgitation also. Neurology evaluation in progress at this time. The patient continues to be stuporous at this time. PAST MEDICAL HISTORY: Reviewed. REVIEW OF SYSTEMS: Could not be taken because the patient is stuporous. Current medications reviewed and include: 1. Tylenol 650 q.6. 2. Aspirin 325 mg. 3. Lipitor 40 mg daily. 4. Rocephin 1 gram daily. 5. Heparin 5000 subcu b.i.d. 6. Trandate 10 mg q.4 p.r.n. 7. Zestril 5 mg p.o. b.i.d. 8. Multivitamin 1 p.o. daily. 9. Zofran 4 mg IV q.6. 10. Protonix 40 mg IV daily. 11. P.r.n. medications. PHYSICAL EXAMINATION: The patient is stuporous. Pulse is 65, blood pressure 192/80, respirations 20, temperature is normal, pulse ox 98% on 3 L. HEENT: Conjunctivae normal. Oral mucosa moist. NECK: No jugular venous distention. No carotid bruit. No lymph node enlargement. CARDIOVASCULAR: S1 and S2, muffled. RESPIRATORY: Breath sounds diminished at the bases. A few scattered rhonchi. ABDOMEN: Soft, nontender. LEGS: No edema, no swelling. NERVOUS SYSTEM: Conjugate gaze palsy on the left side and significant weakness on he left side power grade 3 to 4. Otherwise, no sensory abnormalities. LYMPHATICS: No lymphadenopathy of neck, axillae or groin. JOINTS: No active deforming arthropathy. Labs are at this time show WBC 13.7, otherwise, triglyceride is 154, cholesterol is 234. UA noted. ASSESSMENT: 1. Acute multifocal stroke involving the right occipital, right posterior parietal and as well as left side weakness and conjugate gaze to the left. 2. Acute hypertension with hypertensive urgency. 3. Possible urinary tract infection. 4. Increased random blood sugar. 5. History of nicotine dependence. 6. Increased WBC. 7. Dysarthria. 8. Hyperlipidemia. 9. FULL CODE. RECOMMENDATIONS AND DISCUSSION: This 71-year-old woman who presented with multiple complex medical issues. Will monitor the patient closely. Continue the current medications, continue with symptomatic treatment. Continue with antiplatelet regimen, empiric antibiotics, atorvastatin, DVT prophylaxis. RANJIT is being planned by Cardiology. Prognosis guarded. Further recommendations to follow. PT, OT evaluation, speech pathology evaluation. Guarded prognosis. Further recommendations to follow. MTDD
--- NOTE | 2016-12-25 15:46 | P.PN ---
Subjective Principal diagnosis: Stroke This is a pleasant 71-year-old female continuing to be evaluated by the neurology service for stroke. She was brought to the [facility] emergency room with altered mental status and language difficulties. Her blood pressure was significantly elevated at 210/96. Initial CT showed evidence of a subacute infarct of the right occipital and right parietal lobes. An MRI did show evidence of acute infarct of both the right occipital and right parietal lobes. A transesophageal echocardiogram was done and showed no evidence of intracardiac thrombus. She was initially started on aspirin and has since also been started on Plavix at the recommendation of cardiovascular. Her EEG was normal. Carotid Doppler showed evidence of right internal carotid artery occlusion. Her subsequent CTA showed an occluded right internal carotid artery at its origin with mild proximal left internal carotid stenosis. A consult has been placed for cardiovascular surgery, and Dr. Hayden also has a full consultation and with a neurovascular surgeon. Her cardiac enzymes and serum homocysteine level were normal. She was found to be dyslipidemic has been started on Lipitor. At the time of my exam she is sitting up at her bedside chair in no acute distress. Obvious left-sided weakness remains. She is drinking liquids without gagging or aspiration Objective - Vital Signs Vital signs: Vital Signs Temp 98.6 F 12/25/16 08:00 Pulse 71 12/25/16 12:00 Resp 18 12/25/16 04:00 BP 173/83 12/25/16 12:00 Pulse Ox 95 12/25/16 12:00 Intake & Output 12/24/16 12/25/16 12/25/16 18:59 06:59 18:59 Intake Total 790 2230 Output Total 1050 300 500 Balance -260 -300 1730 Weight 76 kg Intake: IV 700 1900 Sodium Chloride 0.9% 1, 600 1900 000 ml @ 100 mls/hr IV . Q10H SEPIDEH Rx#:[id number] Oral 90 330 Output: Urine 1050 300 500 Stool 0 Other: # Voids 1 2 # Bowel Movements 0 - Constitutional General appearance: Present: average body habitus, cooperative, no acute distress - EENT Eyes: Present: EOMI, PERRLA. Absent: abnormal pupil ENT: Present: hearing grossly normal - Neck Neck: Absent: rigidity - Respiratory Respiratory: negative: prolonged expiration, prolonged inspiration - Cardiovascular Rhythm: regular - Gastrointestinal General gastrointestinal: Absent: distended, tenderness - Neurologic Neurologic Comment(s): Patient is awake and oriented to person and partially to place. He continues to follow commands appropriately. Strength continues to be 5 minus out of 5 in right upper and lower extremities. Strength is 4+ out of 5 on the left lower extremity with minimal effort of the left upper extremity. She is a little stronger proximally on the left upper extremity with her significant hand weakness. Left facial weakness is seen. There remains a mild left lateral gaze palsy. No tremors or seizure-like activities are seen. 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 And a transesophageal echocardiogram showed no evidence of intracardiac thrombus. She has complete occlusion of the right internal carotid artery. Consult have been placed for both cardiovascular and neurovascular. Dr. Hayden indicates that the neurovascular surgeon would like the patient to follow-up in an outpatient setting for evaluation. She will continue on her current antiplatelet therapy and anti-hyperlipidemic therapy. Continue work with speech therapy, occupational therapy, physical therapy. Her neurological checks. She is otherwise cleared from a neurological standpoint for release to an appropriate care facility for therapy. I have performed a history and physical on the above patient. I have reviewed the above note, and agree.
--- NOTE | 2016-12-25 16:16 | P.GSCN ---
<Shirin Crandall - Last Filed: 12/25/16 15:59> History of Present Illness Consult date: 12/25/16 Reason for Consult: Right ICA occlusion Requesting physician: Vivek Garcia History of present illness: This 71-year-old woman presented to the emergency department after family noticed that she had some mental status changes. They noted dysarthria as well as an unexplained bruise over her left eye. Upon questioning, patient stated that she had some dizziness. She denied any previous medical history, headache , syncope, loss of consciousness. She was admitted for stroke workup. She had a head CT which demonstrated a subacute cortical infarct in the right occipital lobe and right posterior parietal lobe. She had an MRI of the brain which demonstrated much of the same. She had a head and neck CTA which demonstrated right ICA occlusion, mild proximal left ICA stenosis, and distal right vertebral artery stenosis. Carotid Dopplers demonstrated 100% occlusion of the right ICA, mild plaquing and mild increased velocity in the left ICA. In addition she had an echocardiogram which demonstrated an ejection fraction of 50 -55%, mild mitral regurgitation, mild tricuspid regurgitation, and mild left ventricular hypertrophy. Dr. Kidd was consulted for the right ICA occlusion. Review of Systems 14 point review systems was completed was negative except as noted. - Neurological Reports as per HPI Past Medical History Past Medical History: No Reported History History of Any Multi-Drug Resistant Organisms: None Reported Past Surgical History: No Surgical Hx Reported Past Psychological History: No Psychological Hx Reported Smoking Status: Current every day smoker Past Alcohol Use History: None Reported Past Drug Use History: None Reported - Past Family History Father Family Medical History: Coronary Artery Disease (CAD) Medications and Allergies Home Medications Medication Instructions Recorded Confirmed Type Multivitamins, Thera [Multivitamin 1 tab PO DAILY 12/23/16 12/23/16 History (formulary)] Allergies Allergy/AdvReac Type Severity Reaction Status Date / Time No Known Allergies Allergy Verified 12/23/16 14:22 Surgical - Exam Vital Signs Temp Pulse Resp BP Pulse Ox 98.6 F 102 H 18 210/96 95 12/23/16 13:51 12/23/16 13:51 12/23/16 13:51 12/23/16 13:51 12/23/16 13:51 - General well developed, well nourished, no distress, no pain - Eyes PERRL, normal ocular movement - Neck trachea midline - Respiratory Respirations even, nonlabored. Currently remains oxygen saturation 93%. normal expansion, normal respiratory effort, clear to auscultation - Cardiovascular Normal sinus rhythm on telemetry. Rhythm: regular Heart Sounds: normal: S1, S2 - Abdomen Abdomen: soft, non tender, bowel sounds - Genitourinary Deferred - Rectum Deferred - Integumentary Ecchymosis noted around the left eye - Neurologic Patient is alert and oriented to person place and time. She has full movement and strength on the right side of her body. She is unable to move her left arm or squeeze my hand. She is able to lift her left leg but only has 3/5 strength. She has left hemianopia and a left-sided facial droop. - Psychiatric oriented to time, oriented to person, oriented to place Results - Labs 12/25/16 05:58 12/25/16 05:58 Abnormal Lab Results - Last 24 Hours (Table) 12/25/16 Range/Units 05:58 Chloride 111 H (98-107) mmol/L Microbiology - Last 24 Hours (Table) 12/24/16 05:00 Urine Culture - Final Urine,Voided 12/24/16 01:19 Blood Culture - Preliminary Blood No Growth after 24 hours Diabetes panel 12/25/16 Range/Units 05:58 Sodium 141 (137-145) mmol/L Potassium 3.5 (3.5-5.1) mmol/L Chloride 111 H (98-107) mmol/L Carbon Dioxide 25 (22-30) mmol/L BUN 12 (7-17) mg/dL Creatinine 0.65 (0.52-1.04) mg/dL Glucose 89 (74-99) mg/dL Calcium 8.7 (8.4-10.2) mg/dL Calcium panel 12/25/16 Range/Units 05:58 Calcium 8.7 (8.4-10.2) mg/dL Pituitary panel 12/25/16 Range/Units 05:58 Sodium 141 (137-145) mmol/L Potassium 3.5 (3.5-5.1) mmol/L Chloride 111 H (98-107) mmol/L Carbon Dioxide 25 (22-30) mmol/L BUN 12 (7-17) mg/dL Creatinine 0.65 (0.52-1.04) mg/dL Glucose 89 (74-99) mg/dL Calcium 8.7 (8.4-10.2) mg/dL Adrenal panel 12/25/16 Range/Units 05:58 Sodium 141 (137-145) mmol/L Potassium 3.5 (3.5-5.1) mmol/L Chloride 111 H (98-107) mmol/L Carbon Dioxide 25 (22-30) mmol/L BUN 12 (7-17) mg/dL Creatinine 0.65 (0.52-1.04) mg/dL Glucose 89 (74-99) mg/dL Calcium 8.7 (8.4-10.2) mg/dL - Imaging Chest x-ray: image reviewed Additional studies: Head CT, head and neck CTA, carotid Dopplers, EEG, MRI, echocardiogram results noted. 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 Chart/diagnostics were reviewed. The patient is in no acute distress. She was counseled to quit smoking. Will discuss the case in detail with Dr. Kidd and make further recommendations for treatment. Thank you for this consult. We look forward to working with you in the care of your patient. Time with Patient: Greater than 30 <Alejandro Kidd - Last Filed: 12/26/16 16:14> History of Present Illness History of present illness: [employer] note reviewed and accepted 71-year-old woman status post right hemispheric CVA with total occlusion of left ICA. Have reviewed in detail other consultants notes as well. At this time there is no indication for surgical intervention. Medical therapy and rehab should be optimized. Any further treatments would depend on patient' s progress. Surgical - Exam Osteopathic Statement: *. No significant issues noted on an osteopathic structural exam other than those noted in the History and Physical/Consult. Vital Signs Temp Pulse Resp BP Pulse Ox 98.6 F 102 H 18 210/96 95 12/23/16 13:51 12/23/16 13:51 12/23/16 13:51 12/23/16 13:51 12/23/16 13:51 Results - Labs 12/25/16 05:58 12/26/16 06:05 Abnormal Lab Results - Last 24 Hours (Table) 12/26/16 Range/Units 06:05 Potassium 3.2 L (3.5-5.1) mmol/L Chloride 109 H (98-107) mmol/L Microbiology - Last 24 Hours (Table) 12/24/16 01:19 Blood Culture - Preliminary Blood No Growth after 48 hours Diabetes panel 12/26/16 Range/Units 06:05 Sodium 141 (137-145) mmol/L Potassium 3.2 L (3.5-5.1) mmol/L Chloride 109 H (98-107) mmol/L Carbon Dioxide 23 (22-30) mmol/L BUN 9 (7-17) mg/dL Creatinine 0.62 (0.52-1.04) mg/dL Glucose 93 (74-99) mg/dL Calcium 9.2 (8.4-10.2) mg/dL Calcium panel 12/26/16 Range/Units 06:05 Calcium 9.2 (8.4-10.2) mg/dL Pituitary panel 12/26/16 Range/Units 06:05 Sodium 141 (137-145) mmol/L Potassium 3.2 L (3.5-5.1) mmol/L Chloride 109 H (98-107) mmol/L Carbon Dioxide 23 (22-30) mmol/L BUN 9 (7-17) mg/dL Creatinine 0.62 (0.52-1.04) mg/dL Glucose 93 (74-99) mg/dL Calcium 9.2 (8.4-10.2) mg/dL Adrenal panel 12/26/16 Range/Units 06:05 Sodium 141 (137-145) mmol/L Potassium 3.2 L (3.5-5.1) mmol/L Chloride 109 H (98-107) mmol/L Carbon Dioxide 23 (22-30) mmol/L BUN 9 (7-17) mg/dL Creatinine 0.62 (0.52-1.04) mg/dL Glucose 93 (74-99) mg/dL Calcium 9.2 (8.4-10.2) mg/dL
--- NOTE | 2016-12-25 16:37 | P.PN ---
Subjective Mrs. 71-year-old female that was brought into the hospital with left-sided weakness. Patient was noted to have a total complete occlusion of the right ICA at the origin However there is vascular supply in the [place] of jasmine around the [place]RIANNA MCA territory Patient has a predominant left sided facial droop with left-sided kory-neglect and left upper extremities. Cyst left lower extremities appear to be mobile Patient appears to have intermittent episodes of confusion Patient's blood pressures have been erratic in the recent times Does not answer all questions appropriately at this time Objective - Vital Signs Vital signs: Vital Signs Temp 98.6 F 12/25/16 08:00 Pulse 71 12/25/16 12:00 Resp 18 12/25/16 04:00 BP 173/83 12/25/16 12:00 Pulse Ox 95 12/25/16 12:00 Intake & Output 12/24/16 12/25/16 12/25/16 18:59 06:59 18:59 Intake Total 790 2230 Output Total 1050 300 500 Balance -260 -300 1730 Weight 76 kg Intake: IV 700 1900 Sodium Chloride 0.9% 1, 600 1900 000 ml @ 100 mls/hr IV . Q10H SEPIDEH Rx#:[id number] Oral 90 330 Output: Urine 1050 300 500 Stool 0 Other: # Voids 1 2 # Bowel Movements 0 - Exam Gen. appearance alert to time and place Neck is supple no JVD Patient is not able to cross midline to the left neglect on the left side Left-sided facial droop Strength on the left upper extremities 1-2 out of 5 left lower extremity is 4 out of 5 right upper and lower x-ray strength is 5 out of 5 Abdomen is soft nontender no organomegaly bowel sounds are intact No lower extremity edema Heart S1-S2 heard regular rate and rhythm no murmurs appreciated - Labs CBC & Chem 7: 12/25/16 05:58 12/25/16 05:58 Labs: Abnormal Lab Results - Last 24 Hours (Table) 12/25/16 Range/Units 05:58 Chloride 111 H (98-107) mmol/L Microbiology - Last 24 Hours (Table) 12/24/16 05:00 Urine Culture - Final Urine,Voided 12/24/16 01:19 Blood Culture - Preliminary Blood No Growth after 24 hours Assessment and Plan Plan: #1 acute right MCA territory stroke with left-sided weakness and a right dominant person #2 history of hypertension #3 asymptomatic bacteriuria Plan We'll discontinue antibiotics at this time Did discuss with the neuro interventional S we'll continue with aspirin and Plavix and high-dose statin at this time Patient will need placement. PTOT consult. We'll obtain a rehabilitation consultation as well due to prophylaxis discontinue IV labetalol do not treat blood pressure unless systolic is greater than 210
[2016-12-25] MEDS: MULTIVITAMINS, THERA 1 EACH TAB PO SCH (17:39)
[2016-12-25] MEDS: CLOPIDOGREL 75 MG TAB PO SCH (17:39)
--- NOTE | 2016-12-25 19:57 | CT ---
EXAMINATION TYPE: CT brain wo con DATE OF EXAM: 12/25/2016 COMPARISON: 12/23/2016 HISTORY: Left frontal bruising and swelling CT DLP: 961 mGycm Automated exposure control for dose reduction was used. FINDINGS: There is left frontal scalp hematoma. Ventricles have normal size. There is no midline shift. There is a 4 x 4 centimeters area of hypodens ity in the right posterior parietal lobe marcum and white matter. There is a similar 3 cm area of hypod ensity in the right occipital lobe cortex. There is no evidence of intracranial hemorrhage. The micheline rium is intact. IMPRESSION: Left frontal scalp hematoma is new compared to old exam. There is evidence of subacute infarct in the right parietal and right occipital lobe that is more well-defined than the last CT scan.
[2016-12-25] MEDS ORDERED: QUEtiapine 25 MG TAB PO STA (20:56)
[2016-12-25] MEDS ORDERED: HALOPERIDOL 1 MG TAB PO PRN (20:57)
--- NOTE | 2016-12-25 21:15 | PN ---
Mr. Garcia is a 71-year-old female with no prior documented history of coronary artery disease, who presented with evidence of cerebrovascular accident. She underwent transesophageal echocardiogram yesterday that revealed no evidence of intracardiac shunt or thrombus. She has underwent a neck CT angiogram that showed occluded right internal carotid artery with mild proximal disease in the left internal carotid artery. She continues to have some weakness in the left upper extremity. She continues to have some speech issues, but otherwise, she denies any chest pain. No dizziness. No palpitation. Her breathing has been stable. Continues to be at this time on aspirin, Lipitor 80 mg daily, Plavix 75 mg daily, Lisinopril 5 mg twice a day. PHYSICAL EXAMINATION: Blood pressure remains elevated in the range of 140s to 170s with a heart rate in the 60s. LUNGS: Clear. HEART: Regular rate and rhythm. S1 and S2, no S3, no rub. ABDOMEN: Soft, nontender. EXTREMITIES: No edema. Lab data revealed BUN and creatinine 12 and 0.65. Hemoglobin of 12.6. IMPRESSION: 1. Cerebrovascular accident. 2. Occluded right internal carotid artery. 3. Hypertension, remains elevated. 4. Hyperlipidemia. RECOMMENDATION: I will increase the dose of her Lisinopril to 10 mg twice a day. I will follow her renal function. Depending on her progress, further recommendation will be made.
[2016-12-25] MEDS: LISINOPRIL 10 MG TAB PO SCH (21:35)
[2016-12-25] MEDS ORDERED: HALOPERIDOL LACTATE 5 MG/ML 1 ML VIAL IM PRN (23:30)
[2016-12-26 06:43] LABS: Anion Gap 9 mmol/L; Blood Urea Nitrogen 9 mg/dL (7-17); Calcium 9.2 mg/dL (8.4-10.2); Carbon Dioxide 23 mmol/L (22-30); Chloride 109 mmol/L (98-107); Glucose 93 mg/dL (74-99); Non-African American GFR(MDRD) >60 (>60 ml/min/1.73 sqM); Potassium 3.2 mmol/L (3.5-5.1); Sodium 141 mmol/L (137-145)
--- NOTE | 2016-12-26 08:40 | P.PN ---
<Shirin Crandall - Last Filed: 12/26/16 08:22> Subjective Principal diagnosis: Right ICA occlusion, status post CVA Patient currently lying in bed in no acute distress. Mental status slightly changed from yesterday as patient no longer can tell me the correct date or where she is at. Per nursing overnight to patient became very agitated, was hitting staff, and pulled off telemetry and pulled out her IV multiple times. Objective - Vital Signs Vital signs: Vital Signs Temp 99.5 F 12/25/16 20:00 Pulse 66 12/26/16 04:00 Resp 18 12/26/16 04:00 BP 197/84 12/26/16 04:00 Pulse Ox 94 L 12/26/16 04:00 Intake & Output 12/25/16 12/26/16 12/26/16 18:59 06:59 18:59 Intake Total 2350 20 20 Output Total 500 1500 Balance 1850 -1480 20 Weight 61.5 kg Intake: IV 1900 20 20 Sodium Chloride 0.9% 1, 1900 000 ml @ 100 mls/hr IV . Q10H [facility] Rx#:[id number] Sodium Chloride 0.9% 1, 20 20 000 ml @ 20 mls/hr IV . Q24H [facility]PIDE[facility] Rx#:[id number] Oral 450 Output: Urine 500 1500 Straight 750 Stool 0 Other: # Voids 2 3 # Bowel Movements 0 - Constitutional General appearance: Present: no acute distress - Respiratory Details: Lungs sounds diminished bilaterally. Respirations even, nonlabored. Currently on room air with oxygen saturation 94%. - Cardiovascular Details: S1, S2 present. Regular rate and rhythm. No edema present. - Gastrointestinal Gastrointestinal Comment(s): Abdomen soft, nontender, nondistended. Active bowel sounds 4 quadrants. - Integumentary Integumentary Comment(s): Area of ecchymosis around left eye. - Neurologic Neurologic Comment(s): Positives slurred speech, positive left facial droop, positive weakness left side. - Musculoskeletal Musculoskeletal Comment(s): Patient is unable to move left arm or leg. - Allied health notes Allied health notes reviewed: nursing - Labs CBC & Chem 7: 12/25/16 05:58 12/26/16 06:05 Labs: Abnormal Lab Results - Last 24 Hours (Table) 12/26/16 Range/Units 06:05 Potassium 3.2 L (3.5-5.1) mmol/L Chloride 109 H (98-107) mmol/L Microbiology - Last 24 Hours (Table) 12/24/16 01:19 Blood Culture - Preliminary Blood No Growth after 48 hours 12/24/16 05:00 Urine Culture - Final Urine,Voided - Imaging and Cardiology CT Scan - head: report reviewed, image reviewed Assessment and Plan (1) CVA (cerebral vascular accident) Status: Acute (2) Left hemiparesis Status: Acute (3) Hyperlipidemia Status: Chronic (4) Hypertension Status: Chronic (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 Chart/diagnostics were reviewed. The patient is in no acute distress. Recommend continue aspirin, statin, Plavix. PT/OT/speech therapy eval. More recommendations as patient progresses. Time with Patient: Greater than 30 <Alejandro Kidd - Last Filed: 12/26/16 16:15> Subjective Tomasa Castillo notes reviewed and accepted. Patient status appears to have declined a bit. No new recommendations at this time. We'll follow as needed. Objective - Vital Signs Vital signs: Vital Signs Temp 96.9 F L 12/26/16 15:55 Pulse 82 12/26/16 15:55 Resp 18 12/26/16 15:55 BP 115/78 12/26/16 15:55 Pulse Ox 94 L 12/26/16 15:55 Intake & Output 12/25/16 12/26/16 12/26/16 18:59 06:59 18:59 Intake Total 2350 20 430 Output Total 500 1500 450 Balance 1850 -1480 -20 Weight 61.5 kg Intake: IV 1900 20 20 Sodium Chloride 0.9% 1, 1900 000 ml @ 100 mls/hr IV . Q10H SEP[facility] Rx#:[id number] Sodium Chloride 0.9% 1, 20 20 000 ml @ 20 mls/hr IV . Q24H [facility] Rx#:[id number] Oral 450 410 Output: Urine 500 1500 450 Straight 750 Stool 0 0 Other: Voiding Method Bedside Commode # Voids 2 3 # Bowel Movements 0 0 - Labs CBC & Chem 7: 12/25/16 05:58 12/26/16 06:05 Labs: Abnormal Lab Results - Last 24 Hours (Table) 12/26/16 Range/Units 06:05 Potassium 3.2 L (3.5-5.1) mmol/L Chloride 109 H (98-107) mmol/L Microbiology - Last 24 Hours (Table) 12/24/16 01:19 Blood Culture - Preliminary Blood No Growth after 48 hours
--- NOTE | 2016-12-26 10:08 | P.CONS ---
History of Present Illness - Chief Complaint Gait disturbance and left hemiplegia - History of Present Illness I had the op to see patient for inpatient rehab consultation with regard to gait disturbance, stroke with resultant left hemiplegia. Patient poor historian history elicited from chart and from daughter and [id number]. Admitted December 23 with acute onset left-sided weakness. Seen and consultations by García Fam and cardiology. Workup with cardiac echo demonstrates mild concentric LVH, left atrial enlargement and mild mitral and tricuspid regurg. RANJIT demonstrates mild tricuspid regurg. EEG within normal limits. Brain MRI with multiple lacunar infarcts but especially right parietal-occipital. CTA positive for right ICA occluded and mild occlusion left ICA. Head CT with right parietal supple infarct and left scalp hematoma. PT reports 2-3 person assistance for functional body in fact I did observe this. OT reports maximal assistance for upper dressing, bathing, total assistance for lower dressing, moderate assistance for toileting. Previous functional sick, as elicited from daughter and [id number]: 71-year -old left-handed white female who is lives and 2 floor home alone. Retired. Independent with cooking, laundry, driving, standing shower and gait without device. Family history of stroke in both parents and [place] in mother. Review of Systems Review of systems: ENT: Denies sneezes or discharge. Eyes: Denies discharge or photophobia. Cardiac: Denies chest pain or palpitation. Pulmonary: Denies cough or shortness of breath. Breast: Denies discharge or lumps. Gastrointestinal: Denies nausea, emesis, constipation, diarrhea. Genitourinary: Denies discharge or frequency. Musculoskeletal: Denies muscle or bone aches. Neurologic: Severe left-sided weakness and numbness. Speech disturbance. Endocrine: Denies shakes or sweats. Oncology: Denies cancers. Dermatologic: Denies rash, itching, pruritus. ALLERGY/immunology: Denies sneezes, rashes. Past Medical History Past Medical History: No Reported History History of Any Multi-Drug Resistant Organisms: None Reported Past Surgical History: No Surgical Hx Reported Past Psychological History: No Psychological Hx Reported Smoking Status: Current every day smoker Past Alcohol Use History: None Reported Past Drug Use History: None Reported - Past Family History Father Family Medical History: Coronary Artery Disease (CAD) Medications and Allergies Home Medications Medication Instructions Recorded Confirmed Type Multivitamins, Thera [Multivitamin 1 tab PO DAILY 12/23/16 12/23/16 History (formulary)] Allergies Allergy/AdvReac Type Severity Reaction Status Date / Time No Known Allergies Allergy Verified 12/23/16 14:22 Physical Exam Vitals: Vital Signs Temp Pulse Resp BP Pulse Ox 12/26/16 04:00 66 18 197/84 94 L 12/26/16 00:00 66 18 196/80 94 L 12/25/16 20:00 99.5 F 77 18 193/82 95 12/25/16 16:00 69 206/86 95 12/25/16 12:00 59 L 173/83 95 Intake and Output 12/25/16 12/26/16 12/26/16 22:59 06:59 14:59 Intake Total 920 20 20 Output Total 1500 Balance 920 -1480 20 Intake: IV 800 20 20 Sodium Chloride 0.9% 1, 800 000 ml @ 100 mls/hr IV . Q10H SEPIDE[facility] Rx#:[id number] Sodium Chloride 0.9% 1, 20 20 000 ml @ 20 mls/hr IV . Q24H SEPIDE[facility] Rx#:[id number] Oral 120 Output: Urine 1500 Straight 750 Other: # Voids 2 3 Weight 61.5 kg Skin: Good color, texture, turgor. General: Medium build and comfortable appearance. Head: Normocephalic, atraumatic. Eyes: Symmetric. Pupils equal round. Ears: Symmetric. Hearing within normal limits. Mouth: Clear. Neck: Supple. Carotid without bruit. Cardiac: Regular rate and rhythm. Lungs: Clear anteriorly and posteriorly. Abdomen: Soft active nontender. Extremities: Normal tone. Neurological: Mental status: Alert, cooperative, pleasant. Globally aphasia. Cranial nerves: Left facial weakness and numbness. Motor: Normal right arm and leg. Left arm flaccid. Left leg with extension tone but poor at ankle. Sensation: Intact throughout. DTRs: Symmetric and equal throughout. Mobility: Sits and stands with 2-3 person assistance and verbal cueing. Family reports that there was a fall yesterday. Results CBC & Chem 7: 12/25/16 05:58 12/26/16 06:05 Labs: Abnormal Lab Results - Last 24 Hours (Table) 12/26/16 Range/Units 06:05 Potassium 3.2 L (3.5-5.1) mmol/L Chloride 109 H (98-107) mmol/L Microbiology - Last 24 Hours (Table) 12/24/16 01:19 Blood Culture - Preliminary Blood No Growth after 48 hours 12/24/16 05:00 Urine Culture - Final Urine,Voided CT Scan - head: report reviewed (Right parieto-occipital infarct in left scalp hematoma.) MRI - head: report reviewed (Multiple infarcts but especially right parietal- occipital.) Assessment and Plan (1) CVA (cerebral vascular accident) Status: Acute Plan: Impression: 1. Gait disturbance. 2. Stroke with resultant left hemiplegia and aphasia. 3. Occluded right ICA. 4. Overweight. Comments and plan: At this time PT, OT, [employer] ongoing. Patient currently 2-3 person assistance in and fact appears to have low endurance as well. Discussed with daughter and [id number] the above. At this time, they are to discuss options with socially responsible investment adviserOctavio. Rehab prognosis currently guarded.
[2016-12-26] MEDS: HEPARIN SODIUM,PORCINE 5,000 UNIT/ML 1 ML VIAL SQ SCH ×2 (11:46→21:31)
[2016-12-26] MEDS: LISINOPRIL 10 MG TAB PO SCH ×2 (11:46→21:31)
[2016-12-26] MEDS: ACETAMINOPHEN TAB 325 MG TAB PO PRN (11:46)
[2016-12-26] MEDS: CLOPIDOGREL 75 MG TAB PO SCH (11:47)
[2016-12-26] MEDS: PANTOPRAZOLE 40 MG/10 ML VIAL IVP SCH (11:47)
[2016-12-26] MEDS: ASPIRIN 81 MG CHEW PO SCH (11:47)
[2016-12-26] MEDS: ATORVASTATIN 80 MG TAB PO SCH (11:47)
[2016-12-26] MEDS: SODIUM CHLORIDE 0.9% 1,000 ML IV SCH (11:47)
[2016-12-26] MEDS: MULTIVITAMINS, THERA 1 EACH TAB PO SCH (11:48)
--- NOTE | 2016-12-26 12:46 | P.PN ---
Subjective Mrs. 71-year-old female that was brought into the hospital with left-sided weakness. Patient was noted to have a total complete occlusion of the right ICA at the origin However there is vascular supply in the [place] of jasmine around the [place] MCA territory Patient has a predominant left sided facial droop with left-sided kory-neglect and left upper extremities. Cyst left lower extremities appear to be mobile Patient appears to have intermittent episodes of confusion Patient's blood pressures have been erratic in the recent times Does not answer all questions appropriately at this time 12/26/2016 Patient apparently overnight sustained a fall having a hematoma on the head on the left side. A CT of the head was done which did not reveal any intracranial abnormalities a left-sided hematoma that is stable was reported Patient apparently has had some confusion. Was given a dose of Seroquel or night This a.m. patient is more appropriate appears to respond to commands and follow commands appropriately Continues to have left-sided kory-neglect Objective - Vital Signs Vital signs: Vital Signs Temp 99.5 F 12/25/16 20:00 Pulse 66 12/26/16 04:00 Resp 18 12/26/16 04:00 BP 197/84 12/26/16 04:00 Pulse Ox 94 L 12/26/16 12:11 Intake & Output 12/25/16 12/26/16 12/26/16 18:59 06:59 18:59 Intake Total 2350 20 20 Output Total 500 1500 Balance 1850 -1480 20 Weight 61.5 kg Intake: IV 1900 20 20 Sodium Chloride 0.9% 1, 1900 000 ml @ 100 mls/hr IV . Q10H SEP[facility] Rx#:[id number] Sodium Chloride 0.9% 1, 20 20 000 ml @ 20 mls/hr IV . Q24H [facility]PIDE[facility] Rx#:[id number] Oral 450 Output: Urine 500 1500 Straight 750 Stool 0 Other: # Voids 2 3 # Bowel Movements 0 - Exam Gen. appearance alert to time and place Neck is supple no JVD Patient is not able to cross midline to the left neglect on the left side Left-sided facial droop Strength on the left upper extremities 1-2 out of 5 left lower extremity is 4 out of 5 right upper and lower x-ray strength is 5 out of 5 Abdomen is soft nontender no organomegaly bowel sounds are intact No lower extremity edema Heart S1-S2 heard regular rate and rhythm no murmurs appreciated - Labs CBC & Chem 7: 12/25/16 05:58 12/26/16 06:05 Labs: Abnormal Lab Results - Last 24 Hours (Table) 12/26/16 Range/Units 06:05 Potassium 3.2 L (3.5-5.1) mmol/L Chloride 109 H (98-107) mmol/L Microbiology - Last 24 Hours (Table) 12/24/16 01:19 Blood Culture - Preliminary Blood No Growth after 48 hours 12/24/16 05:00 Urine Culture - Final Urine,Voided Assessment and Plan Plan: #1 acute right MCA territory stroke with left-sided weakness and a right dominant person #2 history of hypertension #3 asymptomatic bacteriuria Plan We'll discontinue antibiotics at this time Did discuss with the neuro interventionalist we'll continue with aspirin and Plavix and high-dose statin at this time Patient will need placement. PTOT consult. Lisinopril was increased to 10 mg twice a day. Blood pressure is 170 systolic which is appropriate there is no need to aggressively titrate down the blood pressure If blood pressures greater than 210 systolic use of IV Cardizem pain or labetalol is indicated We will likely discharge the patient to a [facility] as patient is currently a 2 person assist to participate patient
--- NOTE | 2016-12-26 15:27 | P.PN ---
Subjective Principal diagnosis: CVA This is a pleasant 71-year-old female with no prior documented history of coronary artery disease who presented with evidence of CVA. She underwent RANJIT that revealed no evidence of intracardiac shunt or thrombus. CT angiogram of her neck showed occluded right internal carotid artery with mild proximal disease in the left internal carotid artery. He is to have significant weakness in her left side, slow mentation and some speech issues. She denies any complaints of chest discomfort, palpitations, dizziness or difficulty breathing. Blood pressure remains elevated in the 190s. Objective - Vital Signs Vital signs: Vital Signs Temp 98.2 F 12/26/16 12:00 Pulse 82 12/26/16 12:00 Resp 18 12/26/16 12:00 BP 135/72 12/26/16 12:00 Pulse Ox 94 L 12/26/16 12:11 Intake & Output 12/25/16 12/26/16 12/26/16 18:59 06:59 18:59 Intake Total 2350 20 430 Output Total 500 1500 450 Balance 1850 -1480 -20 Weight 61.5 kg Intake: IV 1900 20 20 Sodium Chloride 0.9% 1, 1900 000 ml @ 100 mls/hr IV . Q10H SEPIDE[facility] Rx#:[id number] Sodium Chloride 0.9% 1, 20 20 000 ml @ 20 mls/hr IV . Q24H SEPIDEH Rx#:[id number] Oral 450 410 Output: Urine 500 1500 450 Straight 750 Stool 0 0 Other: Voiding Method Bedside Commode # Voids 2 3 # Bowel Movements 0 0 - Exam PHYSICAL EXAMINATION: HEENT: Head is atraumatic, normocephalic. Pupils equal, round. Neck is supple. There is no elevated jugular venous pressure. HEART EXAMINATION: Heart sounds regular, S1 and S2 normal. No murmur or gallop heard. CHEST EXAMINATION: Lungs are clear to auscultation and precussion. No chest wall tenderness is noted on palpation or with deep breathing. ABDOMEN: Soft, nontender. Bowel sounds are heard. No organomegaly noted. EXTREMITIES: 2+ peripheral pulses with no evidence of peripheral edema and no calf tenderness noted. NEUROLOGIC patient is awake, alert and oriented to person. . - Labs CBC & Chem 7: 12/25/16 05:58 12/26/16 06:05 Labs: Abnormal Lab Results - Last 24 Hours (Table) 12/26/16 Range/Units 06:05 Potassium 3.2 L (3.5-5.1) mmol/L Chloride 109 H (98-107) mmol/L Microbiology - Last 24 Hours (Table) 12/24/16 01:19 Blood Culture - Preliminary Blood No Growth after 48 hours 12/24/16 05:00 Urine Culture - Final Urine,Voided Assessment and Plan Plan: Assessment and plan #1 CVA #2 occluded right internal carotid artery #3 hypertension, remains elevated #4 hyperlipidemia From cardiology's perspective, we'll add Norvasc 5 mg by mouth daily. We'll continue to follow the patient on an as-needed basis. Please do not hesitate to call with questions. BLOW DOWN OPERATOR note has been reviewed, I agree with a documented findings and plan of care. Patient was seen and examined.
[2016-12-26] MEDS: amLODIPine 5 MG TAB PO SCH (17:18)
[2016-12-27] MEDS: ACETAMINOPHEN TAB 325 MG TAB PO PRN ×2 (08:55→18:55)
[2016-12-27] MEDS: LISINOPRIL 10 MG TAB PO SCH ×2 (08:56→20:59)
[2016-12-27] MEDS: PANTOPRAZOLE 40 MG/10 ML VIAL IVP SCH (08:56)
[2016-12-27] MEDS: ASPIRIN 81 MG CHEW PO SCH (08:56)
[2016-12-27] MEDS: amLODIPine 5 MG TAB PO SCH (08:56)
[2016-12-27] MEDS: CLOPIDOGREL 75 MG TAB PO SCH (08:56)
[2016-12-27] MEDS: HEPARIN SODIUM,PORCINE 5,000 UNIT/ML 1 ML VIAL SQ SCH ×2 (08:56→20:59)
[2016-12-27] MEDS: ATORVASTATIN 80 MG TAB PO SCH (08:56)
[2016-12-27] MEDS: MULTIVITAMINS, THERA 1 EACH TAB PO SCH (11:38)
[2016-12-27] MEDS: SODIUM CHLORIDE 0.9% 1,000 ML IV SCH (11:38)
--- NOTE | 2016-12-27 19:48 | CT ---
EXAMINATION TYPE: CT brain wo con DATE OF EXAM: 12/27/2016 COMPARISON: Prior CT brain 12/25/2016 HISTORY: FALL INJURY. CT DLP: 922.5 mGycm Automated exposure control for dose reduction was used. Helical acquisition through the brain FINDINGS: Scalp cephalohematoma has dispersed somewhat, area of right parietal and occipital infarcts again not ed. White matter low-attenuation in the deep white matter on the right somewhat more well-defined cur rently extending into the anterior and posterior limbs of the internal capsule. There is no hemorrhag e or hydrocephalus. IMPRESSION: MULTIFOCAL SUBACUTE ISCHEMIC CHANGES SOMEWHAT MORE WELL-DEFINED ON CURRENT EXAM.
--- NOTE | 2016-12-27 19:57 | XR ---
Limited left shoulder HISTORY: Trauma and pain 2 views of the left shoulder No comparisons Multiple calcified granuloma present in the left lung. Bone mineralization mildly reduced. Alignment is maintained. IMPRESSION: No fracture or dislocation evident on this 2 view left shoulder.
[2016-12-28] MEDS ORDERED: hydrALAZINE HCL 20 MG/ML 1 ML VIAL IVP PRN (04:23)
[2016-12-28] MEDS ORDERED: Potassium Replacement Protocol 1 EACH MISC MISCELLANE PRN (07:45)
[2016-12-28] MEDS: ACETAMINOPHEN TAB 325 MG TAB PO PRN ×2 (08:38→14:26)
[2016-12-28] MEDS: PANTOPRAZOLE 40 MG TABLET PO SCH (08:39)
[2016-12-28] MEDS: LISINOPRIL 10 MG TAB PO SCH ×2 (08:39→20:30)
[2016-12-28] MEDS: ATORVASTATIN 80 MG TAB PO SCH (08:39)
[2016-12-28] MEDS: POTASSIUM CHLORIDE ER 20 MEQ TAB.ER PO SCH ×3 (08:39→14:09)
[2016-12-28] MEDS: HEPARIN SODIUM,PORCINE 5,000 UNIT/ML 1 ML VIAL SQ SCH ×2 (08:40→20:31)
[2016-12-28] MEDS: CLOPIDOGREL 75 MG TAB PO SCH (08:40)
[2016-12-28] MEDS: MULTIVITAMINS, THERA 1 EACH TAB PO SCH (08:40)
[2016-12-28] MEDS: amLODIPine 5 MG TAB PO SCH (08:40)
[2016-12-28] MEDS: ASPIRIN 81 MG CHEW PO SCH (08:40)
[2016-12-28] MEDS: SODIUM CHLORIDE 0.9% 1,000 ML IV SCH (08:49)
--- NOTE | 2016-12-28 16:36 | DS ---
DATE OF ADMISSION: 12/23/2016 DATE OF DISCHARGE: Patient is a 71-year-old pleasant female who came in with left-sided weakness, found to have total complete occlusion of RCA at the origin. Patient had a left-sided facial droop and left-sided hemineglect and left-sided weakness in the left upper and lower extremity. Patient is being discharged to subacute rehabilitation today. Patient had a fall leading to hematoma of the head on the left side which showed more obvious evidence of stroke on the follow-up CT, and patient was evaluated by Neurology. Dr. Hayden recommended followup with a neurointensivist as an outpatient. Patient is also legally blind. Patient was seen and examined on the day of discharge. Vitals are stable. GENERAL: The patient is alert and oriented x3, not in any acute distress. Well developed, well nourished. HEENT: Pupils are round and equally reacting to light. EOMI. No scleral icterus. No conjunctival pallor. Normocephalic, atraumatic. No pharyngeal erythema. No thyromegaly. CARDIOVASCULAR: S1 and S2 present. No murmurs, rubs, or gallops. PULMONARY: Chest is clear to auscultation, no wheezing or crackles. ABDOMEN: Soft, nontender, nondistended, normoactive bowel sounds. No palpable organomegaly. MUSCULOSKELETAL: No joint swelling or deformity. EXTREMITIES: No cyanosis, clubbing, or pedal edema. NEUROLOGICAL: As mentioned above. SKIN: No rashes. Patient's blood pressure is fairly controlled at this point of time at 165/79. Patient's blood pressure remained in 200 systolic yesterday. FINAL DIAGNOSES: 1. Cerebrovascular accident the involving the right MCA territory and left-sided weakness. 2. Hypertension. 3. Asymptomatic bacteriuria. Please refer to my depart summary for the rest of discharge medications. Activity as tolerated. [facility] Patient will follow up with Dr. Bob Del Valle in about a week. Cardiac diet. Spent greater than 35 minutes in total discharge process.
[2016-12-29 07:30] VITALS: BP 139/69; PULSE 71; RESP 20; TEMP 97.6
[2016-12-29] MEDS: HEPARIN SODIUM,PORCINE 5,000 UNIT/ML 1 ML VIAL SQ SCH (09:04)
[2016-12-29] MEDS: ATORVASTATIN 80 MG TAB PO SCH (09:05)
[2016-12-29] MEDS: LISINOPRIL 10 MG TAB PO SCH (09:05)
[2016-12-29] MEDS: amLODIPine 5 MG TAB PO SCH (09:05)
[2016-12-29] MEDS: PANTOPRAZOLE 40 MG TABLET PO SCH (09:05)
[2016-12-29] MEDS: ASPIRIN 81 MG CHEW PO SCH (09:05)
[2016-12-29] MEDS: MULTIVITAMINS, THERA 1 EACH TAB PO SCH (09:06)
[2016-12-29] MEDS: CLOPIDOGREL 75 MG TAB PO SCH (09:06)
[2016-12-29] MEDS ORDERED: POTASSIUM CHLORIDE ER 20 MEQ TAB.ER PO STA (10:32)
--- NOTE | 2016-12-29 11:09 | DS ---
DATE OF ADMISSION: 12/23/2016 DATE OF DISCHARGE: The patient is a very pleasant 71-year-old female admitted for stroke. Please refer to my dictation of discharge summary for further details. Patient was seen and examined today as she ended up staying in the hospital because insurance and disposition issues and last night patient had an episode of agitation because of which patient received Haldol. Patient will be given a prescription for Seroquel on p.r.n. and will be discharged today. Patient was seen and examined on the day of discharge. Vitals are stable. PHYSICAL EXAMINATION: GENERAL: The patient is alert and oriented x3, not in any acute distress. Well developed, well nourished. HEENT: Pupils are round and equally reacting to light. EOMI. No scleral icterus. No conjunctival pallor. Normocephalic, atraumatic. No pharyngeal erythema. No thyromegaly. CARDIOVASCULAR: S1 and S2 present. No murmurs, rubs, or gallops. PULMONARY: Chest is clear to auscultation, no wheezing or crackles. ABDOMEN: Soft, nontender, nondistended, normoactive bowel sounds. No palpable organomegaly. MUSCULOSKELETAL: No joint swelling or deformity. EXTREMITIES: No cyanosis, clubbing, or pedal edema. NEUROLOGICAL: No significant change compared to yesterday, although patient does feel better and patient is alert and oriented x3. He does have visual loss secondary to stroke in the right eye. SKIN: No rashes. Even today spent greater than 35 minutes in total discharge process. For the rest of the details, please refer to my dictation of discharge summary from yesterday.
[2016-12-29] MEDS: SODIUM CHLORIDE 0.9% 1,000 ML IV SCH (11:20)
== END 2016-12-29 13:46 | DRG 65 ==
LOC: EC 13:49 → 6SEL 17:00 → 4MS4W 12-28 18:21
PROVIDERS: ADMIT Hospitalist; ATTEND Hospitalist
PROC: B246ZZ4 Ultrasonography of Right and Left Heart, Transesophageal (ICD-10-PCS; principal; 2016-12-24 12:40)
DX: I63.511 Cerebral infarction due to unspecified occlusion or stenosis of right middle cerebral artery (principal); G81.94 Hemiplegia, unspecified affecting left nondominant side; I10 Essential (primary) hypertension; R41.4 Neurologic neglect syndrome; S00.03XA Contusion of scalp, initial encounter; D72.829 Elevated white blood cell count, unspecified; R47.01 Aphasia; I08.1 Rheumatic disorders of both mitral and tricuspid valves; I65.21 Occlusion and stenosis of right carotid artery; I65.01 Occlusion and stenosis of right vertebral artery; R29.810 Facial weakness; R47.1 Dysarthria and anarthria; I16.0 Hypertensive urgency; E78.5 Hyperlipidemia, unspecified; F17.200 Nicotine dependence, unspecified, uncomplicated; H54.8 Legal blindness, as defined in USA; E66.3 Overweight; R26.9 Unspecified abnormalities of gait and mobility; R82.71 Bacteriuria; Z79.899 Other long term (current) drug therapy; Z82.3 Family history of stroke; W19.XXXA Unspecified fall, initial encounter
CPT/HCPCS: 36415; 70450; 70498; 70551; 71020; 72125; 80048; 80053; 80061; 81001; 83090; 83605; 83690; 84132; 84484; 85025; 85610; 87040; 87086; 93005; 93306; 93312; 93320; 93325; 93880; 95819; 96361; 96365; 96375; 99291

== ENCOUNTER → 2017-09-06 | Outpatient (CLI) | payer MEDICARE, OTHER ==
--- NOTE | 2017-09-12 08:57 | USB ---
Reason for exam: follow-up at short interval from prior study. History: Patient is postmenopausal. Physical Findings: Nurse did not find any significant physical abnormalities on exam. US Breast LT Left breast ultrasound includes all four quadrants, the retroareolar region and axilla. Finding demonstrates a 0.3 x 0.3 x 0.3cm lesion too small to characterize at 1 o'clock site of former hematoma and a 0.7 x 0.5 x 0.4cm oval, cystic lesion at 3 o'clock much smaller than prior, nearly resolved. These results were verbally communicated with the patient and result sheet given to the patient on 09/06/17. ASSESSMENT: Benign, BI-RAD 2 RECOMMENDATION: Routine screening mammogram of both breasts in 9 months. Back on schedule for May 2018.
== END | disposition home or self-care (01) ==
LOC: RADMAMWWP 10:45
PROVIDERS: ATTEND Internal Medicine
DX: R92.8 Other abnormal and inconclusive findings on diagnostic imaging of breast (principal)

== ENCOUNTER 2017-09-27 06:43 | Day surgery (SDC) | payer MEDICARE, OTHER ==
[2017-09-26 10:52] VITALS: BMI 25.2
[~2017-09-27 06:43] MED LIST: LACTATED RINGERS 1,000 ML IV SCH; LIDOCAINE 1% 20 ML VIAL (10MG/ML) FOR IV START INTRADERMA PRN
[2017-09-27 07:25] VITALS: RESP 16; TEMP 97.7
[2017-09-27] MEDS ORDERED: PROPOFOL 10 MG/ML 20 ML VIAL IV ONE (07:37)
--- NOTE | 2017-09-27 07:58 | P.PCN ---
Date of Procedure: 09/27/17 Procedure(s) Performed: BRIEF HISTORY: Patient is a 72-year-old pleasant white female, scheduled for an elective colonoscopy as a part of evaluation of intermittent rectal bleeding for the last few weeks duration. She never had a colonoscopy in the past. PROCEDURE PERFORMED: Colonoscopy with snare polypectomy. PREOPERATIVE DIAGNOSIS: Intermittent rectal bleeding. IV sedation per Anesthesia. PROCEDURE: After informed consent was obtained, the patient, was brought into the endoscopy unit. IV sedation was administered by Anesthesia under continuous monitoring. Digital rectal examination was normal. Initially the Olympus CF- 160 flexible video colonoscope was then inserted in the rectum, gradually advanced into the cecum without any difficulty. Careful examination was performed as the scope was gradually being withdrawn. Ileocecal valve and the appendiceal orifice were visualized and appeared normal. Prep was excellent. Mucosa of the cecum, ascending colon, appeared normal. In the transverse colon there was a 1 cm broad-based polyp that was removed by snare polypectomy. The rest of the transverse colon, descending colon, sigmoid colon, and rectum appeared normal. Retroflexion was performed in the rectum and no lesions were seen. The patient tolerated the procedure well. IMPRESSION: 1 cm broad-based transverse colon polyp status post snare polypectomy Small internal hemorrhoids Rest of the colon appeared normal RECOMMENDATIONS: Findings of this examination were discussed with the patient as well as a family. She was advised to follow with the biopsy results. If the biopsy shows a tubular adenoma she can have a repeat colonoscopy in 5 years..
[2017-09-27 08:41] VITALS: BP 154/61; PULSE 62
== END 2017-09-27 08:58 | disposition other institution (70) ==
LOC: ORWHC2ENDO 06:43
PROVIDERS: ATTEND Internal Medicine Gastroenterology
DX: D12.3 Benign neoplasm of transverse colon (principal); K64.8 Other hemorrhoids; Z79.899 Other long term (current) drug therapy; I10 Essential (primary) hypertension; E78.5 Hyperlipidemia, unspecified; Z86.73 Personal history of transient ischemic attack (TIA), and cerebral infarction without residual deficits
CPT/HCPCS: 88305; 45385; J2704

== ENCOUNTER → 2017-12-03 | Outpatient (CLI) | payer MEDICARE, OTHER ==
--- NOTE | 2017-12-03 11:18 | ECHOF ---
Referral Reason:R01.1 Heart Murmur MEASUREMENTS -------- HEIGHT: 157.5 cm WEIGHT: 64.0 kg BP: 158/69 RVIDd: 2.7 cm (< 3.3) IVSd: 1.1 cm (0.6 - 1.1) LVIDd: 4.6 cm (3.9 - 5.3) LVPWd: 1.1 cm (0.6 - 1.1) IVSs: 1.4 cm LVIDs: 3.6 cm LVPWs: 1.7 cm LA Diam: 2.5 cm (2.7 - 3.8) LAESV Index (A-L): 29.81 ml/m Ao Diam: 2.5 cm (2.0 - 3.7) AV Cusp: 1.6 cm (1.5 - 2.6) EPSS: 0.9 cm MV E Jaswinder: 0.66 m/s MV DecT: 209 ms MV A Ajswinder: 0.93 m/s MV E/A Ratio: 0.71 MV EF SLOPE: 48.67 mm/s (70 - 150) MV EXCURSION: 1.56 cm (> 18.000) FINDINGS -------- Sinus rhythm. This was a technically adequate study. The left ventricular size is normal. There is borderline concentric left ventricular hypertrophy. Overall left ventricular systolic function is mildly impaired with, an EF between 45 - 50 %. Basal inferior LV wall motion is hypokinetic. Basal inferoseptal LV wall motion is hypokinetic. The right ventricle is normal in size. LA is midly dilated 29-33ml/m2. The right atrium is normal in size. There is mild aortic valve sclerosis. The mitral valve leaflets are mildly thickened. Mild mitral annular calcification present. Trace tricuspid regurgitation present. The pulmonic valve was not well visualized. The aortic root size is normal. Normal inferior vena cava with normal inspiratory collapse consistent with estimated right atrial pre ssure of 5 mmHg. There is no pericardial effusion. CONCLUSIONS -------- 1. Sinus rhythm. 2. This was a technically adequate study. 3. The left ventricular size is normal. 4. There is borderline concentric left ventricular hypertrophy. 5. Overall left ventricular systolic function is mildly impaired with, an EF between 45 - 50 %. 6. Basal inferior LV wall motion is hypokinetic. 7. Basal inferoseptal LV wall motion is hypokinetic. 8. The right ventricle is normal in size. 9. LA is midly dilated 29-33ml/m2. 10. The right atrium is normal in size. 11. There is mild aortic valve sclerosis. 12. The mitral valve leaflets are mildly thickened. 13. Mild mitral annular calcification present. 14. Trace tricuspid regurgitation present. 15. The pulmonic valve was not well visualized. 16. The aortic root size is normal. 17. Normal inferior vena cava with normal inspiratory collapse consistent with estimated right atrial pressure of 5 mmHg. 18. There is no pericardial effusion. FLEXO PRESS OPERATOR: VICTOR HUGO Ramírez
== END | disposition home or self-care (01) ==
LOC: RADECHMAIN 08:33
PROVIDERS: ATTEND Internal Medicine
DX: I08.0 Rheumatic disorders of both mitral and aortic valves (principal)
CPT/HCPCS: 93306

== ENCOUNTER 2017-12-27 22:22 | Emergency (ER) | payer MEDICARE, OTHER ==
[2017-12-27 22:31] VITALS: TEMP 98.3
--- NOTE | 2017-12-27 22:47 | XR ---
EXAMINATION TYPE: XR ankle complete LT DATE OF EXAM: 12/27/2017 COMPARISON: NONE HISTORY: Twisting injury TECHNIQUE: 3 views FINDINGS: There is a lucent line projected over the fibula on the lateral view suspicious for nondisp laced spiral fracture. Ankle mortise is anatomic. There is no dislocation. IMPRESSION: There is probably a nondisplaced spiral fracture of the distal fibula.
--- NOTE | 2017-12-27 22:48 | XR ---
EXAMINATION TYPE: XR foot complete LT DATE OF EXAM: 12/27/2017 COMPARISON: NONE HISTORY: Foot pain TECHNIQUE: 3 views FINDINGS: Metatarsals are intact. There is a small Achilles calcaneal spur. I see no fracture nor dis location. There are no erosions. IMPRESSION: No acute abnormality of the left foot.
--- NOTE | 2017-12-27 23:02 | ED ---
General Adult HPI <Frantz Cavanaughe - Last Filed: 12/28/17 00:37> - General Source: patient, RN notes reviewed Mode of arrival: EMS Limitations: physical limitation <Jensen Arellano - Last Filed: 12/28/17 12:06> - General Stated complaint: Foot Pain Time Seen by Provider: 12/27/17 22:27 - History of Present Illness Initial comments: 72-year-old female presents to the emergency department for a chief complaint of left ankle pain 1 hour. Patient states she was walking to the bathroom when she became light headed and fell on the left ankle. Patient denies hitting her head or loss of consciousness. Patient did not lose consciousness prior to the fall. Patient denies pain in the foot knee or hip. Patient denies pain in the neck or back. Patient has no other complaints at this time including shortness of breath, chest pain, abdominal pain, nausea or vomiting, headache, or visual changes. (Jensen Arellano) - Related Data Home Medications Medication Instructions Recorded Confirmed Acetaminophen [Tylenol] 650 mg PO Q4H PRN 09/26/17 12/27/17 Bisacodyl [Dulcolax] 10 mg RECTAL DAILY PRN 09/26/17 12/27/17 Donepezil [Aricept] 10 mg PO HS 09/26/17 12/27/17 Loperamide [Imodium] 2 mg PO QID PRN 09/26/17 12/27/17 Multivitamins, Thera [Multivitamin 1 tab PO DAILY 09/26/17 12/27/17 (formulary)] Propylene Glycol/Peg 400 [Systane 1 drop BOTH EYES BID 09/26/17 12/27/17 Ultra 0.4-0.3% Eye Drp] QUEtiapine [SEROquel] 25 mg PO HS PRN 09/26/17 12/27/17 RX: Omeprazole 20 mg PO BID 09/26/17 12/27/17 RX: Sucralfate [Carafate] 1 gm PO BID-W/MEALS 09/26/17 12/27/17 RX: valACYclovir HCL [Valacyclovir] 1,000 mg PO Q12HR 12/27/17 12/27/17 Previous Rx's Medication Instructions Recorded RX: Atorvastatin [Lipitor] 80 mg PO DAILY tab 12/28/16 RX: Lisinopril [Zestril] 10 mg PO BID tab 12/28/16 RX: amLODIPine [Norvasc] 5 mg PO DAILY tab 12/28/16 Allergies Allergy/AdvReac Type Severity Reaction Status Date / Time No Known Allergies Allergy Verified 12/27/17 22:31 Review of Systems ROS Other: All systems not noted in ROS Statement are negative. <Tim Cavanaugh - Last Filed: 12/28/17 00:37> ROS Other: All systems not noted in ROS Statement are negative. <Jensen Arellano - Last Filed: 12/28/17 12:06> ROS Statement: Those systems with pertinent positive or pertinent negative responses have been documented in the HPI. Past Medical History Past Medical History: CVA/TIA, Hypertension, Memory Impairment Additional Past Medical History / Comment(s): HX STROKE DECEMBER 2016 WITH LEFT HEMIPLEGIA, SPEECH SLOW, MOSTLY IN WHEELCHAIR -BUT ABLE TO TRANSFER WITH ASSIST AND DOES WALK WITH ASSISTANCE ONLY., LIVES AT [facility]. OCCASIONAL CONFUSION., LOW HGB., SON MARIA LUISA SEQUEIRA HAS P.O.A. History of Any Multi-Drug Resistant Organisms: None Reported Past Surgical History: No Surgical Hx Reported Past Anesthesia/Blood Transfusion Reactions: Unable to Obtain Past Psychological History: No Psychological Hx Reported Smoking Status: Former smoker Past Alcohol Use History: None Reported Past Drug Use History: None Reported - Past Family History Father Family Medical History: Coronary Artery Disease (CAD) <Jensen Arellano P - Last Filed: 12/28/17 12:06> General Exam Limitations: physical limitation General appearance: alert, in no apparent distress Head exam: Present: atraumatic, normocephalic, normal inspection Eye exam: Present: normal appearance, PERRL, EOMI. Absent: scleral icterus, conjunctival injection, nystagmus, periorbital swelling ENT exam: Present: normal exam, normal oropharynx, mucous membranes moist, TM's normal bilaterally, normal external ear exam Neck exam: Present: normal inspection, full ROM. Absent: tenderness, meningismus, lymphadenopathy Respiratory exam: Present: normal lung sounds bilaterally. Absent: respiratory distress, wheezes, rales, rhonchi, stridor Cardiovascular Exam: Present: regular rate, normal rhythm, normal heart sounds. Absent: systolic murmur, diastolic murmur, rubs, gallop, clicks GI/Abdominal exam: Present: soft, normal bowel sounds. Absent: distended, tenderness, guarding, rebound, rigid Extremities exam: Present: tenderness (Tenderness to the lateral malleolus of the left ankle. No tenderness in the tib-fib.), normal capillary refill ( Refill less than 2 seconds and pedal pulse 2+ in the left lower extremity.), joint swelling (Minimal swelling in the left ankle. ), other (Sensation intact in the left lower extremity.). Absent: full ROM (Patient has limited dorsi flexion of the left ankle. Patient has full plantarflexion.), calf tenderness ( No tenderness in the calf. No redness swelling or warmth noted in the left calf. Negative Homans sign.) Back exam: Present: normal inspection, full ROM. Absent: tenderness <Jensen rAellano P - Last Filed: 12/28/17 12:06> Vital Signs 12/27/17 12/27/17 12/27/17 22:27 23:31 23:43 Temperature 98.3 F Pulse Rate 74 67 Pulse Rate [ 74 Sitting] Pulse Rate [ 67 Supine] Respiratory 20 20 Rate Blood Pressure 150/73 167/72 Blood Pressure 178/75 [Sitting] Blood Pressure 177/75 [Supine] O2 Sat by Pulse 96 99 Oximetry 12/28/17 12/28/17 00:33 01:00 Temperature 98.3 F Pulse Rate 68 69 Pulse Rate [ Sitting] Pulse Rate [ Supine] Respiratory 18 16 Rate Blood Pressure 173/72 164/60 Blood Pressure [Sitting] Blood Pressure [Supine] O2 Sat by Pulse 98 98 Oximetry Procedures <Tim Cavanaugh - Last Filed: 12/28/17 00:37> <Jensen Arellano - Last Filed: 12/28/17 12:06> - Procedures Initial comment: Neurovascular intact before splint application Indication: posterior short leg Type: spiral fibula fracture Wounds: no abrasions or lacerations underneath splint Neurovascular status: patient has sensation and movement of digits extending outside the splint, there is no cyanosis, capillary refill < 2 seconds Follow-up: patient given number for orthopedics and instructed to phone to make an appointment. Patient aware she can return to the Emergency Department if any difficulties. (Jensen Arellano) Medical Decision Making - Lab Data Result diagrams: 12/27/17 23:52 12/27/17 23:52 <Tim Cavanaugh - Last Filed: 12/28/17 00:37> - Lab Data Result diagrams: 12/27/17 23:52 12/27/17 23:52 <Jensen Arellano - Last Filed: 12/28/17 12:06> - Medical Decision Making EKG shows normal sinus rhythm at 62 bpm AK interval 146 dresses 88 QT interval is 4:30 QTC is 436. Patient's EKG shows no ST segment elevation or depression or T wave abnormalities are noted. Patient is asymptomatic on my reevaluation. Patient states she had a wheelchair and walker at home so she was able to get around just fine. (Tim Cavanaugh) 72-year-old female presents to the emergency determine for a chief complaint of left ankle pain 1 hour. Patient states she was walking to the bathroom when she became light headed and fell on her left ankle. Patient denies hitting her head or loss of consciousness. Patient denies pain in the left knee or hip. Patient denies pain in the neck or back. On exam patient has mild tenderness to the lateral malleolus of the left ankle. Mild swelling noted over the lateral malleolus as well. Pedal pulse 2+ in the left lower extremity. Neurovascular intact. X-ray of the left ankle shows a lucent line projected over the fibula on the lateral view suspicious for nondisplaced spiral fracture. No dislocation. Ankle mortise anatomic. X-ray shows no acute abnormality of the left foot. Patient was splinted in a posterior short leg splint. Patient's family would also like her worked up for the lightheadedness. They state she has received blood transfusions before and they 're concerned her hemoglobin may be low again. (Jensen Arellano) - Lab Data Lab Results 12/27/17 12/27/17 Range/Units 23:52 23:52 WBC 14.9 H (3.8-10.6) k/uL RBC 4.20 (3.80-5.40) m/uL Hgb 11.3 L (11.4-16.0) gm/dL Hct 35.6 (34.0-46.0) % MCV 84.8 (80.0-100.0) fL MCH 26.9 (25.0-35.0) pg MCHC 31.8 (31.0-37.0) g/dL RDW 19.6 H (11.5-15.5) % Plt Count 270 (150-450) k/uL Neutrophils % 78 % Lymphocytes % 13 % Monocytes % 6 % Eosinophils % 0 % Basophils % 0 % Neutrophils # 11.7 H (1.3-7.7) k/uL Lymphocytes # 2.0 (1.0-4.8) k/uL Monocytes # 0.9 (0-1.0) k/uL Eosinophils # 0.1 (0-0.7) k/uL Basophils # 0.0 (0-0.2) k/uL Anisocytosis Slight Microcytosis Slight Sodium 144 (137-145) mmol/L Potassium 4.1 (3.5-5.1) mmol/L Chloride 107 (98-107) mmol/L Carbon Dioxide 27 (22-30) mmol/L Anion Gap 10 mmol/L BUN 19 H (7-17) mg/dL Creatinine 0.80 (0.52-1.04) mg/dL Est GFR (CKD-EPI)AfAm 87 (>60 ml/min/1.73 sqM) Est GFR (CKD-EPI)NonAf 75 (>60 ml/min/1.73 sqM) Glucose 97 (74-99) mg/dL Calcium 9.5 (8.4-10.2) mg/dL Total Bilirubin 0.1 L (0.2-1.3) mg/dL AST 15 (14-36) U/L ALT 35 (9-52) U/L Alkaline Phosphatase 124 (38-126) U/L Total Protein 6.4 (6.3-8.2) g/dL Albumin 3.9 (3.5-5.0) g/dL Disposition Is patient prescribed a controlled substance at d/c from ED?: No Time of Disposition: 00:37 <Tim Cavanaugh - Last Filed: 12/28/17 00:37> Is patient prescribed a controlled substance at d/c from ED?: No <Jensen Arellano - Last Filed: 12/28/17 12:06> Clinical Impression: Left fibular fracture Disposition: HOME SELF-CARE Condition: Good Instructions: Leg Fracture (ED) Referrals: Dee Marcus MD [Primary Care Provider] - 1-2 days Keo Simmons DO [Doctor of Osteopathic Medicine] - 1-2 days
[2017-12-27] MEDS ORDERED: SODIUM CHLORIDE 0.9% 1,000 ML IV STA (23:19)
[2017-12-28 00:04] LABS: Anisocytosis Slight; Basophils % (A) 0 %; Eosinophils # (A) 0.1 k/uL (0-0.7); Eosinophils % (A) 0 %; HCT 35.6 % (34.0-46.0); HGB 11.3 gm/dL (11.4-16.0); Lymphocytes % (A) 13 %; MCH 26.9 pg (25.0-35.0); MCHC 31.8 g/dL (31.0-37.0); MCV 84.8 fL (80.0-100.0); Mean Platelet Volume 7.8; Microcytosis Slight; Monocytes # (A) 0.9 k/uL (0-1.0); Monocytes % (A) 6 %; Neutrophils # (A) 11.7 k/uL (1.3-7.7); Neutrophils % (A) 78 %; Platelet Count 270 k/uL (150-450); RDW 19.6 % (11.5-15.5); WBC 14.9 k/uL (3.8-10.6)
[2017-12-28 00:17] LABS: Albumin 3.9 g/dL (3.5-5.0); Calcium 9.5 mg/dL (8.4-10.2); Potassium 4.1 mmol/L (3.5-5.1); Total Bilirubin 0.1 mg/dL (0.2-1.3); Total Protein 6.4 g/dL (6.3-8.2)
[2017-12-28 01:02] VITALS: BP 164/60; PULSE 69; RESP 16
== END 2017-12-28 01:22 | disposition home or self-care (01) ==
LOC: EC 22:22
DX: S82.832A Other fracture of upper and lower end of left fibula, initial encounter for closed fracture (principal); R42 Dizziness and giddiness; I10 Essential (primary) hypertension; Z86.73 Personal history of transient ischemic attack (TIA), and cerebral infarction without residual deficits; Z79.899 Other long term (current) drug therapy; Z87.891 Personal history of nicotine dependence; W18.39XA Other fall on same level, initial encounter; X50.1XXA Overexertion from prolonged static or awkward postures, initial encounter; Y93.01 Activity, walking, marching and hiking; Y92.009 Unspecified place in unspecified non-institutional (private) residence as the place of occurrence of the external cause
CPT/HCPCS: 29515; 36415; 80053; 85025; 93005; 96360; 99284

== ENCOUNTER → 2019-01-29 | Outpatient (CLI) | payer MEDICARE ==
--- NOTE | 2019-02-02 09:24 | MM ---
Reason for exam: screening (asymptomatic). Last mammogram was performed 1 year and 9 months ago. History: Patient is postmenopausal. Physical Findings: A clinical breast exam by your physician is recommended on an annual basis and results should be correlated with mammographic findings. MG Screening Mammo w CAD Bilateral CC and MLO view(s) were taken. Prior study comparison: May 16, 2017, bilateral MG 3d diag mammo w/cad TK. April 17, 2016, bilateral MG screening mammo w CAD. There are scattered fibroglandular densities. There is no discrete abnormality. No significant changes when compared with prior studies. ASSESSMENT: Negative, BI-RAD 1 RECOMMENDATION: Routine screening mammogram of both breasts in 1 year.
== END | disposition home or self-care (01) ==
LOC: RADMAMWWP 08:17
PROVIDERS: ATTEND Internal Medicine
DX: Z12.31 Encounter for screening mammogram for malignant neoplasm of breast (principal)
CPT/HCPCS: 77067

== ENCOUNTER → 2019-09-07 | Outpatient (CLI) | payer MEDICARE ==
--- NOTE | 2019-09-07 12:50 | XR ---
Left shoulder HISTORY: Trauma and pain Single frontal view of the left shoulder No evident fracture or dislocation in the frontal view. There is evidence of old granulomatous diseas e within the lung and chest. Aorta is dense. There is overlying artifact present. IMPRESSION: Single view shows no fracture or dislocation, follow-up as indicated.
--- NOTE | 2019-09-07 14:07 | XR ---
Left knee HISTORY: Trauma and pain 2 views of the left knee Bone mineralization is reduced. Alignment and joint spaces are maintained. Minimal suprapatellar join t effusion is suspected. Vascular calcifications are present. IMPRESSION: No fracture or dislocation.
--- NOTE | 2019-09-07 14:10 | XR ---
Left hip HISTORY: Trauma and pain 2 views of the left hip Bone mineralization is reduced. Joint spaces and alignment are maintained. IMPRESSION: No fracture or dislocation.
== END | disposition home or self-care (01) ==
LOC: RADXRYALE 11:15
PROVIDERS: ATTEND Internal Medicine
DX: M25.512 Pain in left shoulder (principal); G89.29 Other chronic pain; M25.562 Pain in left knee; M25.552 Pain in left hip
CPT/HCPCS: 73502

== ENCOUNTER 2020-10-19 18:51 | Inpatient (IN) | payer MEDICARE ==
[2020-10-19] MEDS ORDERED: SODIUM CHLORIDE 0.9% 1,000 ML IV ONE (21:15)
[2020-10-19] MEDS ORDERED: ACETAMINOPHEN TAB 325 MG TAB PO STA (21:16)
--- NOTE | 2020-10-19 21:30 | ED ---
General Adult HPI - General Chief complaint: Fever Stated complaint: fever/light headed Time Seen by Provider: 10/19/20 21:15 Source: patient Mode of arrival: wheelchair Limitations: no limitations - History of Present Illness Initial comments: Antonina is a 75-year-old female who lives alone. She presents to the ER today for fever, malaise, diarrhea, poor oral intake feeling lightheaded and general weakness. 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 Patient states she's had diarrhea for the past couple of da ys she's too weak to walk to the restroom. He is not bathed in over a week. Home health care was supposed to come the past 2 days which she's been too weak to participate in getting her shower. - Related Data Home Medications Medication Instructions Recorded Confirmed Acetaminophen [Tylenol] 650 mg PO Q4H PRN 09/26/17 12/27/17 Donepezil [Aricept] 10 mg PO HS 09/26/17 12/27/17 Loperamide [Imodium] 2 mg PO QID PRN 09/26/17 12/27/17 Multivitamins, Thera [Multivitamin 1 tab PO DAILY 09/26/17 12/27/17 (formulary)] Omeprazole 20 mg PO BID 09/26/17 12/27/17 Propylene Glycol/Peg 400 [Systane 1 drop BOTH EYES BID 09/26/17 12/27/17 Ultra 0.4-0.3% Eye Drp] QUEtiapine [SEROquel] 25 mg PO HS PRN 09/26/17 12/27/17 Sucralfate [Carafate] 1 gm PO BID-W/MEALS 09/26/17 12/27/17 bisacodyL [Dulcolax] 10 mg RECTAL DAILY PRN 09/26/17 12/27/17 valACYclovir HCL [Valacyclovir] 1,000 mg PO Q12HR 12/27/17 12/27/17 Previous Rx's Medication Instructions Recorded Atorvastatin [Lipitor] 80 mg PO DAILY tab 12/28/16 amLODIPine [Norvasc] 5 mg PO DAILY tab 12/28/16 lisinopriL [Zestril] 10 mg PO BID tab 12/28/16 Allergies Allergy/AdvReac Type Severity Reaction Status Date / Time No Known Allergies Allergy Verified 10/19/20 20:21 Review of Systems ROS Statement: Those systems with pertinent positive or pertinent negative responses have been documented in the HPI. ROS Other: All systems not noted in ROS Statement are negative. Past Medical History Past Medical History: CVA/TIA, Hypertension, Memory Impairment Additional Past Medical History / Comment(s): HX STROKE DECEMBER 2016 WITH LEFT HEMIPLEGIA, SPEECH SLOW, MOSTLY IN WHEELCHAIR -BUT ABLE TO TRANSFER WITH ASSIST AND DOES WALK WITH ASSISTANCE ONLY., LIVES AT [facility]. OCCASIONAL CONFUSION., LOW HGB., SON MARIA LUISA SEQUEIRA HAS P.O.A. History of Any Multi-Drug Resistant Organisms: None Reported Past Surgical History: No Surgical Hx Reported Past Anesthesia/Blood Transfusion Reactions: Unable to Obtain Past Psychological History: No Psychological Hx Reported Smoking Status: Former smoker Past Alcohol Use History: None Reported Past Drug Use History: None Reported - Past Family History Father Family Medical History: Coronary Artery Disease (CAD) General Exam - General Exam Comments Initial Comments: Physical Exam GENERAL: Elderly, chronically ill appearing Appears dehydrated HENT: Normocephalic, Atraumatic. EYES: PERRL, EOMI PULMONARY: Unlabored respirations. CARDIOVASCULAR: RRR ABDOMEN: Non-distended SKIN: No rashes or bruising Dried diarrhea down both legs : Deferred NEUROLOGIC: pleasantly confused MUSCULOSKELETAL: Moving all extremities with no apparent injury PSYCHIATRIC: No SI/HI Limitations: no limitations Course Vital Signs 10/19/20 10/19/20 10/19/20 20:15 21:53 23:12 Temperature 101.0 F H Pulse Rate 100 78 Respiratory 18 18 18 Rate Blood Pressure 128/85 112/39 O2 Sat by Pulse 94 L 95 Oximetry Medical Decision Making - Medical Decision Making She was seen and evaluated history is obtained from the patient History and physical exam concerning for a dehydrated elderly female likely has COVID Labs and IV fluids were ordered COVID positive positive, not acutely hypoxic however given her advanced age and general debility we will admit Patient care discussed with , aware patient is being admitted for COVID with dehydration and debility, not hypoxia - Lab Data Result diagrams: 10/19/20 21:39 10/19/20 21:39 Lab Results 10/19/20 10/19/20 10/19/20 Range/Units 20:41 21:39 21:39 WBC 6.1 (3.8-10.6) k/uL RBC 4.97 (3.80-5.40) m/uL Hgb 14.6 (11.4-16.0) gm/dL Hct 43.2 (34.0-46.0) % MCV 86.9 (80.0-100.0) fL MCH 29.3 (25.0-35.0) pg MCHC 33.7 (31.0-37.0) g/dL RDW 14.2 (11.5-15.5) % Plt Count 213 (150-450) k/uL MPV 9.0 Neutrophils % 71 % Lymphocytes % 18 % Monocytes % 8 % Eosinophils % 0 % Basophils % 0 % Neutrophils # 4.4 (1.3-7.7) k/uL Lymphocytes # 1.1 (1.0-4.8) k/uL Monocytes # 0.5 (0-1.0) k/uL Eosinophils # 0.0 (0-0.7) k/uL Basophils # 0.0 (0-0.2) k/uL PT (9.0-12.0) sec INR (<1.2) APTT (22.0-30.0) sec D-Dimer (<0.60) mg/L FEU Sodium 140 (137-145) mmol/L Potassium 3.6 (3.5-5.1) mmol/L Chloride 106 (98-107) mmol/L Carbon Dioxide 22 (22-30) mmol/L Anion Gap 12 mmol/L BUN 20 H (7-17) mg/dL Creatinine 1.24 H (0.52-1.04) mg/dL Est GFR (CKD-EPI)AfAm 50 (>60 ml/min/1.73 sqM) Est GFR (CKD-EPI)NonAf 43 (>60 ml/min/1.73 sqM) Glucose 101 H (74-99) mg/dL Plasma Lactic Acid Noe (0.7-2.0) mmol/L Calcium 9.0 (8.4-10.2) mg/dL Magnesium 1.8 (1.6-2.3) mg/dL Total Bilirubin 0.6 (0.2-1.3) mg/dL AST 24 (14-36) U/L ALT 17 (4-34) U/L Alkaline Phosphatase 133 H (38-126) U/L Lactate Dehydrogenase 865 H (313-618) U/L C-Reactive Protein 23.1 H (<10.0) mg/L Total Protein 7.0 (6.3-8.2) g/dL Albumin 3.8 (3.5-5.0) g/dL Coronavirus (PCR) Detected A (Not Detectd) 10/19/20 10/19/20 Range/Units 21:39 21:39 WBC (3.8-10.6) k/uL RBC (3.80-5.40) m/uL Hgb (11.4-16.0) gm/dL Hct (34.0-46.0) % MCV (80.0-100.0) fL MCH (25.0-35.0) pg MCHC (31.0-37.0) g/dL RDW (11.5-15.5) % Plt Count (150-450) k/uL MPV Neutrophils % % Lymphocytes % % Monocytes % % Eosinophils % % Basophils % % Neutrophils # (1.3-7.7) k/uL Lymphocytes # (1.0-4.8) k/uL Monocytes # (0-1.0) k/uL Eosinophils # (0-0.7) k/uL Basophils # (0-0.2) k/uL PT 10.1 (9.0-12.0) sec INR 0.9 (<1.2) APTT 19.4 L (22.0-30.0) sec D-Dimer 1.21 H (<0.60) mg/L FEU Sodium (137-145) mmol/L Potassium (3.5-5.1) mmol/L Chloride (98-107) mmol/L Carbon Dioxide (22-30) mmol/L Anion Gap mmol/L BUN (7-17) mg/dL Creatinine (0.52-1.04) mg/dL Est GFR (CKD-EPI)AfAm (>60 ml/min/1.73 sqM) Est GFR (CKD-EPI)NonAf (>60 ml/min/1.73 sqM) Glucose (74-99) mg/dL Plasma Lactic Acid Noe 1.3 (0.7-2.0) mmol/L Calcium (8.4-10.2) mg/dL Magnesium (1.6-2.3) mg/dL Total Bilirubin (0.2-1.3) mg/dL AST (14-36) U/L ALT (4-34) U/L Alkaline Phosphatase (38-126) U/L Lactate Dehydrogenase (313-618) U/L C-Reactive Protein (<10.0) mg/L Total Protein (6.3-8.2) g/dL Albumin (3.5-5.0) g/dL Coronavirus (PCR) (Not Detectd) Disposition Clinical Impression: COVID-19, Dehydration, Diarrhea Disposition: ADMITTED IP TO THIS HOSP Condition: Serious Referrals: Dee Marcus MD [Primary Care Provider] - 1-2 days
[2020-10-19 21:55] LABS: Basophils % (A) 0 %; Eosinophils % (A) 0 %; HCT 43.2 % (34.0-46.0); HGB 14.6 gm/dL (11.4-16.0); Lymphocytes # (A) 1.1 k/uL (1.0-4.8); Lymphocytes % (A) 18 %; MCH 29.3 pg (25.0-35.0); MCHC 33.7 g/dL (31.0-37.0); MCV 86.9 fL (80.0-100.0); Monocytes # (A) 0.5 k/uL (0-1.0); Monocytes % (A) 8 %; Neutrophils # (A) 4.4 k/uL (1.3-7.7); Neutrophils % (A) 71 %; Platelet Count 213 k/uL (150-450); RBC 4.97 m/uL (3.80-5.40); RDW 14.2 % (11.5-15.5); WBC 6.1 k/uL (3.8-10.6)
[2020-10-19 22:14] LABS: Albumin 3.8 g/dL (3.5-5.0); C Reactive Protein 23.1 mg/L (<10.0); Magnesium 1.8 mg/dL (1.6-2.3); Potassium 3.6 mmol/L (3.5-5.1); Total Bilirubin 0.6 mg/dL (0.2-1.3)
--- NOTE | 2020-10-19 22:29 | XR ---
EXAMINATION TYPE: XR chest 1V portable DATE OF EXAM: 10/19/2020 COMPARISON: 12/23/2016 HISTORY: Weakness TECHNIQUE: FINDINGS: There are small calcified granulomata scattered throughout the lungs. There is no heart paulina lure. Costophrenic angles are clear. There are no hilar masses. The bony thorax is intact. Heart size is normal. IMPRESSION: No active cardiopulmonary disease. Old granulomatous disease. No change.
[2020-10-19 22:37] LABS: INR 0.9 (<1.2)
[2020-10-19 22:38] LABS: Prothrombin Time 10.1 sec (9.0-12.0)
[2020-10-19 23:23] LABS: D-Dimer 1.21 mg/L FEU (<0.60); Partial Thromboplastin Time 19.4 sec (22.0-30.0)
[2020-10-19] MEDS ORDERED: ACETAMINOPHEN TAB 325 MG TAB PO PRN (23:42)
[2020-10-19] MEDS ORDERED: NALOXONE 0.4 MG/ML 1 ML VIAL IV PRN (23:42)
[2020-10-19] MEDS ORDERED: ENOXAPARIN 40 MG/0.4 ML SYRINGE SQ SCH (23:45)
[2020-10-20] MEDS: DEXAMETHASONE SOD PHOSPHATE 10 MG/ML 1 ML VIAL IV SCH ×2 (00:01→08:57)
[2020-10-20] MEDS: SODIUM CHLORIDE 0.9% 1,000 ML IV SCH ×2 (00:02→14:00)
[2020-10-20 05:04] VITALS: RESP 18
[2020-10-20] MEDS ORDERED: LOPERAMIDE 2 MG CAP PO PRN (09:57)
[2020-10-20] MEDS ORDERED: ARTIFICIAL TEARS-HYPROMELLOSE DROPS 15 ML BTL BOTH EYES PRN (09:57)
[2020-10-20] MEDS ORDERED: ACETAMINOPHEN TAB 325 MG TAB PO PRN (09:57)
--- NOTE | 2020-10-20 14:16 | P.HPIM ---
History of Present Illness 75-year-old female came in with compensative fever and malaise diarrhea poor by mouth intake lightheadedness and generalized weakness and patient was admitted for rehydration patient has Covid 19. Patient's creatinine is bit up to 1.2. Baseline is around 0.8. Patient was hydrated overnight and do not have any basic labs available at this time. Patient is not requiring oxygen. Patient will not require any systemic steroids patient will be discharged on Yadiel because it and zinc. Patient is medically stable. Patient does have an elevated inflammatory markers. Patient to doesn't know her symptom onset and duration of symptoms. Patient doesn't have any of the above-mentioned symptoms. Chest x-ray did not show any significant infiltrate Review of Systems REVIEW OF SYSTEMS: CONSTITUTIONAL: As mentioned in HPI HEENT: No recent visual problems or hearing problems. Denied any sore throat. CARDIOVASCULAR: No chest pain, orthopnea, PND, no palpitations, no syncope. PULMONARY: No shortness of breath, no cough, no hemoptysis. GASTROINTESTINAL: As mentioned in HPI NEUROLOGICAL: No headaches, no weakness, no numbness. HEMATOLOGICAL: Denies any bleeding or petechiae. GENITOURINARY: Denies any burning micturition, frequency, or urgency. MUSCULOSKELETAL/RHEUMATOLOGICAL: Denies any joint pain, swelling, or any muscle pain. ENDOCRINE: Denies any polyuria or polydipsia. The rest of the 14-point review of systems is negative. Past Medical History Past Medical History: CVA/TIA, Hypertension, Memory Impairment Additional Past Medical History / Comment(s): HX STROKE DECEMBER 2016 WITH LEFT HEMIPLEGIA, SPEECH SLOW, MOSTLY IN WHEELCHAIR -BUT ABLE TO TRANSFER WITH ASSIST AND DOES WALK WITH ASSISTANCE ONLY., LIVES AT [facility]. OCCASIONAL CONFUSION., LOW HGB., SON MARIA LUISA SEQUEIRA HAS P.O.A. History of Any Multi-Drug Resistant Organisms: None Reported Past Surgical History: No Surgical Hx Reported Past Anesthesia/Blood Transfusion Reactions: Unable to Obtain Past Psychological History: No Psychological Hx Reported Smoking Status: Former smoker Past Alcohol Use History: None Reported Past Drug Use History: None Reported - Past Family History Father Family Medical History: Coronary Artery Disease (CAD) Medications and Allergies Home Medications Medication Instructions Recorded Confirmed Type Atorvastatin [Lipitor] 80 mg PO DAILY tab 12/28/16 10/20/20 Rx Acetaminophen [Tylenol] 650 mg PO Q4H PRN 09/26/17 10/20/20 History Donepezil [Aricept] 10 mg PO HS 09/26/17 10/20/20 History Loperamide [Imodium] 2 mg PO QID PRN 09/26/17 10/20/20 History Multivitamins, Thera [Multivitamin 1 tab PO DAILY 09/26/17 10/20/20 History (formulary)] Omeprazole 20 mg PO BID 09/26/17 10/20/20 History Propylene Glycol/Peg 400 [Systane 1 drop BOTH EYES BID PRN 09/26/17 10/20/20 History Ultra 0.4-0.3% Eye Drp] QUEtiapine [SEROquel] 12.5 mg PO HS 09/26/17 10/20/20 History Sucralfate [Carafate] 1 gm PO BID-W/MEALS 09/26/17 10/20/20 History Ascorbic Acid [Vitamin C] 500 mg PO BID #30 tablet 10/20/20 Rx Zinc Sulfate 220 mg PO DAILY #30 capsule 10/20/20 Rx lisinopriL [Zestril] 10 mg PO DAILY 10/20/20 10/20/20 History Allergies Allergy/AdvReac Type Severity Reaction Status Date / Time No Known Allergies Allergy Verified 10/20/20 06:57 Physical Exam Vitals: Vital Signs Temp Pulse Pulse Pulse Resp BP BP 10/20/20 11:01 10/20/20 07:30 97.4 F L 47 L 18 10/20/20 05:58 18 10/20/20 05:03 58 L 18 119/80 10/20/20 04:36 69 16 101/42 10/20/20 04:06 98.2 F 58 L 20 10/20/20 02:36 97.5 F L 10/20/20 02:04 114/47 10/20/20 01:00 98.6 F 63 18 93/51 10/19/20 23:12 78 18 112/39 10/19/20 21:53 18 10/19/20 20:15 101.0 F H 100 18 128/85 BP Pulse Ox 10/20/20 11:01 97 10/20/20 07:30 108/41 100 10/20/20 05:58 10/20/20 05:03 97 10/20/20 04:36 95 10/20/20 04:06 119/80 97 10/20/20 02:36 10/20/20 02:04 10/20/20 01:00 93 L 10/19/20 23:12 95 10/19/20 21:53 10/19/20 20:15 94 L Intake and Output 10/19/20 10/20/20 10/20/20 22:59 06:59 14:59 Intake Total 240 Balance 240 Intake: Oral 240 Other: Voiding Method Bedside Commode # Voids 1 3 # Bowel Movements 2 Weight 58.513 kg 58.513 kg PHYSICAL EXAMINATION: GENERAL: The patient is alert and oriented x3, not in any acute distress. Well developed, well nourished. HEENT: Pupils are round and equally reacting to light. EOMI. No scleral icterus. No conjunctival pallor. Normocephalic, atraumatic. No pharyngeal erythema. No thyromegaly. CARDIOVASCULAR: S1 and S2 present. No murmurs, rubs, or gallops. PULMONARY: Chest is clear to auscultation, no wheezing or crackles. ABDOMEN: Soft, nontender, nondistended, normoactive bowel sounds. No palpable organomegaly. MUSCULOSKELETAL: No joint swelling or deformity. EXTREMITIES: No cyanosis, clubbing, or pedal edema. NEUROLOGICAL: Gross neurological examination did not reveal any focal deficits. SKIN: No rashes. Results CBC & Chem 7: 10/19/20 21:39 10/19/20 21:39 Labs: Abnormal Lab Results - Last 24 Hours (Table) 10/19/20 10/19/20 10/19/20 Range/Units 20:41 21:39 21:39 APTT 19.4 L (22.0-30.0) sec D-Dimer 1.21 H (<0.60) mg/L FEU BUN 20 H (7-17) mg/dL Creatinine 1.24 H (0.52-1.04) mg/dL Glucose 101 H (74-99) mg/dL Alkaline Phosphatase 133 H (38-126) U/L Lactate Dehydrogenase 865 H (313-618) U/L C-Reactive Protein 23.1 H (<10.0) mg/L Coronavirus (PCR) Detected A (Not Detectd) Thrombosis Risk Factor Assmnt - Choose All That Apply Other Risk Factors: No Other congenital or acquired thrombophilia - If yes, enter type in comment: No Assessment and Plan Plan: Covid 19 infection: Patient is not hypoxic will not require any steroids will be discharged today. -Hypertension patient is hypotensive because of dehydration abdomen will be held ALESSANDRO inhibitor will be continued. -Mild acute renal failure patient received IV fluids overnight do not have a basic metabolic profile is available at this time with anticipation of improved serum creatinine patient was resumed on ALESSANDRO inhibitor and will be discharged patient has prerenal azotemia from dehydration and diarrhea -Hypertension Patient is being discharged today
--- NOTE | 2020-10-20 14:17 | P.DS ---
Providers Date of admission: 10/19/20 23:45 Attending physician: Kaycee Kumar Consults: 10/19/20 23:43 Consult Physician Routine Consulting Provider: Mae Alvarez Consult Reason/Comments: COVID Do you want consulting provider notified?: Yes, Notify in am Primary care physician: Dee Marcus [facility] Course: Please refer to my history of present illness for further details Patient Condition at Discharge: Serious Plan - Discharge Summary Discharge Rx Participant: No New Discharge Prescriptions: New Zinc Sulfate 220 mg PO DAILY #30 capsule Ascorbic Acid [Vitamin C] 500 mg PO BID #30 tablet Continue Atorvastatin [Lipitor] 80 mg PO DAILY tab QUEtiapine [SEROquel] 12.5 mg PO HS Multivitamins, Thera [Multivitamin (formulary)] 1 tab PO DAILY Sucralfate [Carafate] 1 gm PO BID-W/MEALS Loperamide [Imodium] 2 mg PO QID PRN PRN Reason: Diarrhea Propylene Glycol/Peg 400 [Systane Ultra 0.4-0.3% Eye Drp] 1 drop BOTH EYES BID PRN PRN Reason: DRY EYES Omeprazole 20 mg PO BID Acetaminophen [Tylenol] 650 mg PO Q4H PRN PRN Reason: PAIN OR FEVER Donepezil [Aricept] 10 mg PO HS lisinopriL [Zestril] 10 mg PO DAILY Discontinued amLODIPine [Norvasc] 2.5 mg PO DAILY Discharge Medication List Atorvastatin [Lipitor] 80 mg PO DAILY tab 12/28/16 [Rx] Acetaminophen [Tylenol] 650 mg PO Q4H PRN 09/26/17 [History] Donepezil [Aricept] 10 mg PO HS 09/26/17 [History] Loperamide [Imodium] 2 mg PO QID PRN 09/26/17 [History] Multivitamins, Thera [Multivitamin (formulary)] 1 tab PO DAILY 09/26/17 [History] Omeprazole 20 mg PO BID 09/26/17 [History] Propylene Glycol/Peg 400 [Systane Ultra 0.4-0.3% Eye Drp] 1 drop BOTH EYES BID PRN 09/26/17 [History] QUEtiapine [SEROquel] 12.5 mg PO HS 09/26/17 [History] Sucralfate [Carafate] 1 gm PO BID-W/MEALS 09/26/17 [History] Ascorbic Acid [Vitamin C] 500 mg PO BID #30 tablet 10/20/20 [Rx] Zinc Sulfate 220 mg PO DAILY #30 capsule 10/20/20 [Rx] lisinopriL [Zestril] 10 mg PO DAILY 10/20/20 [History] Follow up Appointment(s)/Referral(s): Dee Marcus MD [Primary Care Provider] - 3 Days Patient Instructions/Handouts: Coronavirus Disease 2019 (COVID-19), Dehydration (DC) Discharge Disposition: HOME SELF-CARE
[2020-10-20 14:29] VITALS: BP 133/59; PULSE 60; TEMP 97.7
--- NOTE | 2020-10-20 15:40 | CONS ---
CONSULTATION DATE OF SERVICE: 10/20/2020. REASON FOR CONSULT: COVID-19 infection. HISTORY OF PRESENT ILLNESS: The patient is a 75-year-old female who was brought into the ER last evening for evaluation of fever, malaise, diarrhea and decreased oral intake in this patient's symptoms have been going on for the last few days. The patient denies having any headache or URI symptoms. Patient mentioned her symptoms have been going on for about a week, but really worse last 2-3 days. The patient denies having any worsening shortness of breath. Denies significant cough or sputum production. Did have decreased oral intake, but no vomiting. No abdominal pain. Did have some diarrhea. With these symptoms, the patient has been evaluated by the ER physician. On arrival to the ER, the patient did have a fever of 101 degrees Fahrenheit. The patient's O2 saturation was 94% on room air. She was started on a nasal cannula current saturating 100% and noticed to have 97% on room air after oxygen was taken off this morning. The patient did have a normal white count with no lymphopenia. D-dimer was mildly elevated. BUN and creatinine were mildly elevated. Liver enzymes were normal. LDH, CRP was mildly elevated. The patient did have positive COVID test. Chest x-ray was negative for any acute infiltrate. Infectious Disease was consulted for further management. REVIEW OF SYSTEMS: Positive points have been mentioned in HPI. Rest of systems are negative. PAST MEDICAL HISTORY: CVA, TIA, hypertension, memory impairment. PAST SURGICAL HISTORY: No major surgery. SOCIAL HISTORY: No history of smoking. No drinking or drug use. FAMILY HISTORY: Father with history of coronary artery disease. ALLERGIES: No known drug allergies. MEDICATIONS: The patient is currently on Tylenol, Lipitor, Decadron, Aricept, Lovenox, Imodium, Theragran, Narcan, Protonix, Seroquel, Carafate and IV fluid. PHYSICAL EXAMINATION: Her blood pressure is 133/59 with a pulse of 60, temperature 97.7. She is 97% on room air. General description is an elderly female up in the bed in no distress. No tachypnea or accessory muscle of respiratory use. HEENT: Examination shows no pallor or scleral icterus. Oral mucous membrane is dry. NECK: Trachea central. No thyromegaly. LUNGS: Unlabored breathing clear to auscultation. No wheeze or crackle. HEART: S1, S2. Regular rate and rhythm. ABDOMEN: Soft, no tenderness. No guarding or rigidity. EXTREMITIES: No edema of feet. SKIN EXAMINATION: No rash or mass palpable. NEUROLOGICAL: Patient is awake, alert, oriented x2. Mood and affect normal. LABS: Hemoglobin is 14.6, white count 6.1. D-dimer is mildly elevated at 1.21. Creatinine is 1.24. LDH 865. CRP 23.1. Chest x-ray was negative for any acute infiltrate. DIAGNOSTIC IMPRESSION AND PLAN: Patient presented to hospital with weakness, no energy, decreased oral intake in this patient who has been diagnosed with COVID-19 infection, mostly likely mild infection. The patient did not have respiratory symptoms. Chest x-ray has been clear and is saturating at 97% on room air. PLAN: 1. Advise discontinuation of the steroids. 2. May consider short course of multivitamin, zinc and advised to increase oral intake on discharge. 3. Plan of care was discussed with the admitting physician who was working on discharge. MMODL / IJN: [id number] /
[2020-10-20] MEDS ORDERED: SUCRALFATE 1 GM TAB PO SCH (17:30)
[2020-10-20] MEDS ORDERED: DONEPEZIL 10 MG TAB PO SCH (21:00)
[2020-10-20] MEDS ORDERED: QUEtiapine 25 MG TAB PO SCH (21:00)
[2020-10-21] MEDS ORDERED: PANTOPRAZOLE 40 MG TABLET PO SCH (07:30)
[2020-10-21] MEDS ORDERED: ATORVASTATIN 80 MG TAB PO SCH (09:00)
[2020-10-21] MEDS ORDERED: MULTIVITAMINS, THERA 1 EACH TAB PO SCH (09:00)
== END 2020-10-20 15:05 | disposition home or self-care (01) | DRG 178 ==
LOC: EC 18:51 → 4SSUR 23:45 → 6NMEDSUR 10-20 04:06
PROVIDERS: ADMIT Hospitalist; ATTEND Hospitalist
DX: U07.1 COVID-19 (principal); I69.354 Hemiplegia and hemiparesis following cerebral infarction affecting left non-dominant side; N17.9 Acute kidney failure, unspecified; I95.9 Hypotension, unspecified; E86.0 Dehydration; I10 Essential (primary) hypertension; R19.7 Diarrhea, unspecified; Z79.899 Other long term (current) drug therapy; Z87.891 Personal history of nicotine dependence; Z82.49 Family history of ischemic heart disease and other diseases of the circulatory system
CPT/HCPCS: 36415; 71045; 80053; 83605; 83615; 83735; 85025; 85379; 85610; 85730; 86140; 87635; 93005; 96360; 99285

== ENCOUNTER 2021-09-08 14:35 | Observation (INO) | payer MEDICARE ==
[2021-09-08] MEDS ORDERED: ACETAMINOPHEN TAB 500 MG TAB PO STA (15:12)
--- NOTE | 2021-09-08 16:12 | XR ---
EXAMINATION TYPE: XR chest 1V DATE OF EXAM: 09/08/2021 COMPARISON: X-ray dated 10/19/2020 HISTORY: Fall TECHNIQUE: Single frontal view of the chest is obtained. FINDINGS: Stable bilateral millimetric pulmonary nodules likely representing calcified granulomas. Grossly unre markable lungs. No sizable pleural effusion or definite pneumothorax. No gross cardiomegaly. Osteopen ia. Left proximal humeral displaced fracture. IMPRESSION: No significant pulmonary abnormality. Left proximal humeral fracture.
--- NOTE | 2021-09-08 16:15 | XR ---
Left humerus and left elbow HISTORY: Trauma and pain 2 views of left elbow, frontal lateral views of the left humerus on 3 images There is a comminuted proximal left humeral neck fracture with displacement, possible impaction, late ral angulation. Bone mineralization is reduced. No definite dislocation. The elbow shows cortical reg ularity on the lateral view suggesting minimally displaced olecranon fracture without dislocation. Th ere is soft tissue swelling present. Incidental osteoporotic compression fracture not excluded in the upper thoracic spine, question some anterior wedging, kyphosis. IMPRESSION: Fractures as described.
--- NOTE | 2021-09-08 16:16 | XR ---
Left knee HISTORY: Trauma and pain 4 views of left knee Bone mineralization is reduced. Joint spaces and alignment are maintained. No evident joint effusion. IMPRESSION: No acute fracture or dislocation.
--- NOTE | 2021-09-08 16:18 | XR ---
AP pelvis HISTORY: Trauma and pain Single frontal view the pelvis submitted. Correlation to left hip dated 09/07/2019 Bone mineralization is reduced. No interval change is present. Joint spaceS and alignment are maintai clarice. Pelvis is tilted. IMPRESSION: No fracture or dislocation is evident.
[2021-09-08] MEDS ORDERED: MORPHINE SULFATE 4 MG/ML SYRINGE IM STA (16:52)
--- NOTE | 2021-09-08 16:54 | ED ---
Fall HPI <Gustabo Doshi - Last Filed: 09/08/21 19:19> - General Source: patient, EMS, RN notes reviewed Mode of arrival: EMS - History of Present Illness MD Complaint: fall <Dash Pacheco - Last Filed: 09/09/21 06:19> - General Chief Complaint: Fall Stated Complaint: Fall Time Seen by Provider: 09/08/21 14:59 - History of Present Illness Initial Comments: This is a pleasant 76-year-old female who fell when she went out to her shed. Patient slipped on the floor. Patient recalls the entire event. She came down on her left elbow and her left shoulder area. Complaining of mostly pain to this area. 2 Loesser's and she has some pain in her upper back area as well as her left knee. She does not believe she struck her head. However she is not 100% sure. Patient not on anticoagulation. She denies any headache. No neck pain. No vision or hearing disturbance. He Left arm sharp in nature exacerbated by and can any movement. Patient complaining mostly of the left elbow area. No distal paresthesias. No headache, no fever or chills, no changes in vision or hearing, no sore throat or difficulty with speech, no neck pain, no chest pain or shortness of breath, no abdominal pain, no nausea or vomiting, no changes in urination or bowel movements, no numbness or tingling, no extremity pain, no skin rashes or lesions. No nausea vomiting. No numbness or tingling. No gait disturbance. Note that this patient has had a previous stroke with chronic left-sided disability (Dash Pacheco) - Related Data Home Medications Medication Instructions Recorded Confirmed Donepezil [Aricept] 10 mg PO HS 09/26/17 09/08/21 Omeprazole 20 mg PO BID 09/26/17 09/08/21 QUEtiapine [SEROquel] 12.5 mg PO HS 09/26/17 09/08/21 Sucralfate [Carafate] 1 gm PO AC-BID 09/26/17 09/08/21 lisinopriL [Zestril] 10 mg PO DAILY 10/20/20 09/08/21 Nitroglycerin Sl Tabs [Nitrostat] 0.4 mg SL Q5M PRN 09/08/21 09/08/21 amLODIPine [Norvasc] 2.5 mg PO DAILY 09/08/21 09/08/21 Previous Rx's Medication Instructions Recorded Atorvastatin [Lipitor] 80 mg PO DAILY tab 12/28/16 Acetaminophen [Tylenol] 500 mg PO Q4-6H PRN #24 tab 09/08/21 Docusate [Colace] 100 mg PO DAILY #30 capsule 09/08/21 HYDROcodone/APAP 5-325MG [[place] 1 tab PO Q6HR PRN 3 Days #12 tab 09/08/21 5-325] Allergies Allergy/AdvReac Type Severity Reaction Status Date / Time morphine AdvReac Nausea & Verified 09/08/21 20:55 Vomiting Review of Systems ROS Other: All systems not noted in ROS Statement are negative. <Gustabo Doshi - Last Filed: 09/08/21 19:19> ROS Other: All systems not noted in ROS Statement are negative. <Dash Pacheco - Last Filed: 09/09/21 06:19> ROS Statement: Those systems with pertinent positive or pertinent negative responses have been documented in the HPI. Past Medical History Past Medical History: CVA/TIA, Hyperlipidemia, Hypertension, Memory Impairment Additional Past Medical History / Comment(s): HX STROKE DECEMBER 2016 WITH LEFT HEMIPLEGIA, SPEECH SLOW, MOSTLY IN WHEELCHAIR -BUT ABLE TO TRANSFER WITH ASSIST AND DOES WALK WITH ASSISTANCE ONLY., LIVES AT [facility]. OCCASIONAL CONFUSION., LOW HGB., SON MARIA LUISA SEQUEIRA HAS P.O.A. History of Any Multi-Drug Resistant Organisms: None Reported Past Surgical History: No Surgical Hx Reported Past Anesthesia/Blood Transfusion Reactions: Unable to Obtain Past Psychological History: No Psychological Hx Reported Smoking Status: Former smoker Past Alcohol Use History: None Reported Past Drug Use History: None Reported - Past Family History Father Family Medical History: Coronary Artery Disease (CAD) <Dash Pacheco - Last Filed: 09/09/21 06:19> General Exam Limitations: no limitations General appearance: alert, in no apparent distress, in distress Head exam: Present: atraumatic, normocephalic, normal inspection Eye exam: Present: normal appearance, PERRL, EOMI. Absent: scleral icterus, conjunctival injection, periorbital swelling ENT exam: Present: normal exam, mucous membranes moist Neck exam: Present: normal inspection. Absent: tenderness, meningismus, lymphadenopathy Respiratory exam: Present: normal lung sounds bilaterally. Absent: respiratory distress, wheezes, rales, rhonchi, stridor Cardiovascular Exam: Present: regular rate, normal rhythm, normal heart sounds. Absent: systolic murmur, diastolic murmur, rubs, gallop, clicks GI/Abdominal exam: Present: soft, normal bowel sounds. Absent: distended, tenderness, guarding, rebound, rigid Extremities exam: Present: tenderness (Patient tender mostly at the posterior aspect of the elbow as well as proximal humerus area. No break in skin integrity, pulses intact, capillary refill less than 2 seconds), normal capillary refill, other (Patient has tenderness to the left elbow, left upper arm, left knee.). Absent: full ROM (Range of motion limited at the left elbow and left shoulder secondary to pain), pedal edema, joint swelling, calf tenderness Back exam: Present: normal inspection, full ROM, paraspinal tenderness, other (Mild thoracic paraspinal tenderness to palpation. No break in skin integrity). Absent: tenderness, CVA tenderness (L), muscle spasm, vertebral tenderness Neurological exam: Present: alert, oriented X3, CN II-XII intact, normal gait. Absent: altered, abnormal gait, motor sensory deficit Psychiatric exam: Present: normal affect, normal mood Skin exam: Present: warm, dry, intact, normal color. Absent: rash <Dash Pacheco - Last Filed: 09/09/21 06:19> - General Exam Comments Initial Comments: 76-year-old female in mild distress secondary to fall and orthopedic injuries. Vital signs reviewed. Cranial nerves II through XII are intact. (Dash Pacheco) Course Vital Signs 09/08/21 09/08/21 09/08/21 14:45 17:25 18:03 Temperature 97.6 F Pulse Rate 86 99 Respiratory 18 12 Rate Blood Pressure 142/87 136/64 117/70 O2 Sat by Pulse 99 91 L Oximetry 09/08/21 09/08/21 09/08/21 18:12 19:00 20:58 Temperature Pulse Rate 66 77 Respiratory 12 12 12 Rate Blood Pressure 92/59 121/72 O2 Sat by Pulse 94 L 97 Oximetry Medical Decision Making <Gustabo Doshi - Last Filed: 09/08/21 19:19> - Lab Data Result diagrams: 09/08/21 19:16 09/08/21 19:16 <Dash Pacheco - Last Filed: 09/09/21 06:19> - Medical Decision Making Patient had been administered 4 mg of IM morphine in the emergency department, she did become somewhat hypotensive and required Narcan. IV was established, IV fluids obtained and basic laboratory studies obtained. She will be placed in observation to monitor blood pressure. Patient will have consultation orthopedics regarding her humerus fracture. (Gustabo Doshi) [place] Coma Scale is 15. Patient is neurologically intact. Evidence of orthopedic injury. Unsure whether she struck her head. CT and plain film x- rays ordered. Plan she'll x-ray shows a displaced proximal humerus fracture on the left. Also a possible old chronic fracture. According to radiology patient might have some anterior wedging to the upper thoracic spine area as well. Incidental os teoporotic compression fracture not excluded. Patient will require sling and pain control. Orthopedic follow-up. Computed tomography scan of the brain shows no evidence of acute pathology. Old CVA noted. Consistent with patient's left-sided disability. Discussed all findings with the patient and her son. Patient wants to try to go home and be treated as an outpatient. I did offer admission. However the patient adamantly wants to be discharged. Patient is lucid, alert and oriented 4, afebrile make her own medical decisions. I did discuss risks versus benefits of admission versus discharge. Patient in understanding. Conversation took place with patient's son in the room. Patient was told to return to the ER for any signs or symptoms worsen. Told to return immediately if any other problems arise. All questions answered. Treatment plan discussed. Patient in agreement Every effort has been made to ensure accuracy of this dictation. However, due to the limitations of electronic medical records and dictation devices, errors in charting still occur. This patient was sedated by intramuscular morphine prior to discharge. I did give a dose of 0.4 mg naloxone IM. Patient was to be observed for a. Of time. Case was discussed with Dr. Doshi who agreed to observe the patient and discharge when stable--however, patient was eventually admitted for observation. (Dash Pacheco) - Lab Data Lab Results 09/08/21 09/08/21 Range/Units 19:16 19:16 WBC 21.0 H (3.8-10.6) k/uL RBC 4.09 (3.80-5.40) m/uL Hgb 12.1 (11.4-16.0) gm/dL Hct 37.6 (34.0-46.0) % MCV 91.8 (80.0-100.0) fL MCH 29.5 (25.0-35.0) pg MCHC 32.2 (31.0-37.0) g/dL RDW 14.8 (11.5-15.5) % Plt Count 331 (150-450) k/uL MPV 8.3 Neutrophils % 89 % Lymphocytes % 6 % Monocytes % 4 % Eosinophils % 0 % Basophils % 0 % Neutrophils # 18.7 H (1.3-7.7) k/uL Lymphocytes # 1.4 (1.0-4.8) k/uL Monocytes # 0.7 (0-1.0) k/uL Eosinophils # 0.0 (0-0.7) k/uL Basophils # 0.0 (0-0.2) k/uL Hypochromasia Slight Sodium 142 (137-145) mmol/L Potassium 4.2 (3.5-5.1) mmol/L Chloride 108 H (98-107) mmol/L Carbon Dioxide 26 (22-30) mmol/L Anion Gap 8 mmol/L BUN 18 H (7-17) mg/dL Creatinine 0.81 (0.52-1.04) mg/dL Est GFR (CKD-EPI)AfAm 83 (>60 ml/min/1.73 sqM) Est GFR (CKD-EPI)NonAf 72 (>60 ml/min/1.73 sqM) Glucose 163 H (74-99) mg/dL Calcium 9.5 (8.4-10.2) mg/dL Total Bilirubin 0.5 (0.2-1.3) mg/dL AST 15 (14-36) U/L ALT 15 (4-34) U/L Alkaline Phosphatase 141 H (38-126) U/L Total Protein 6.5 (6.3-8.2) g/dL Albumin 3.8 (3.5-5.0) g/dL Disposition Is patient prescribed a controlled substance at d/c from ED?: No Decision to Admit Reason: Admit from EC Decision Date: 09/08/21 Decision Time: 19:20 <Gustabo Doshi - Last Filed: 09/08/21 19:19> Is patient prescribed a controlled substance at d/c from ED?: No Time of Disposition: 17:24 <Dash Pacheco - Last Filed: 09/09/21 06:19> Clinical Impression: Closed traumatic displaced fracture of proximal end of left humerus, Closed fracture of left olecranon process, Thoracic compression fracture, Contusion of left knee, initial encounter Disposition: ADMITTED IP TO THIS [facility] Condition: Good
--- NOTE | 2021-09-08 17:12 | CT ---
EXAMINATION TYPE: CT brain justus valdovinos con DATE OF EXAM: 09/08/2021 COMPARISON: 12/27/2016 HISTORY: Fall, head injury. TECHNIQUE: CT scan of the head and cervical spine without contrast CT DLP: 1327 mGycm Automated exposure control for dose reduction was used. FINDINGS: CT head: Right MCA territory infarction. Right basal ganglia lacunar infarcts. No acute intracranial hemorrhag e, midline shift or mass effect. [place]-white matter differentiation is preserved other than described above. Prominent CSF spaces and ventricles likely on the basis of brain volume loss. No acute intraor bital, osseous or soft tissue abnormalities seen. Atherosclerotic calcifications seen in the intracra nial internal carotid arteries. Paranasal sinuses and mastoid air cells are well aerated. Stable calc ification anterior to the left temporal lobe in the left middle cranial fossa. CT cervical spine: No acute fracture or dislocation seen. Mild, moderate and severe degenerative changes present through out the cervical spine. Atherosclerotic calcifications seen in the carotid arteries bilaterally. No s ignificant soft tissue swelling. Thyroid gland nodularity noted. Patent airways. Calcified bilateral upper lobe nodules. IMPRESSION: 1. NO ACUTE INTRACRANIAL HEMORRHAGE, MIDLINE SHIFT OR MASS EFFECT. 2. NO ACUTE FRACTURE OR DISLOCATION SEEN IN THE CERVICAL SPINE. 3. CHRONIC CHANGES SEEN ON CT HEAD, SEE BODY OF REPORT FOR DETAIL. 4. CHRONIC DEGENERATIVE CHANGES OF THE CERVICAL SPINE, PROGRESSED IN THE INTERVAL. 5. THYROID GLAND NODULES. 6. CALCIFIED BILATERAL UPPER LOBE NODULES.
[2021-09-08] MEDS ORDERED: ONDANSETRON ODT 4 MG TAB PO STA (17:59)
[2021-09-08] MEDS ORDERED: NALOXONE 0.4 MG/ML 1 ML VIAL IM STA (18:08)
[2021-09-08] MEDS ORDERED: SODIUM CHLORIDE 0.9% 500 ML 500 ML IV ONE (19:16)
[2021-09-08] MEDS ORDERED: NALOXONE 0.4 MG/ML 1 ML VIAL IV PRN (19:20)
[2021-09-08] MEDS ORDERED: Acetaminophen-Codeine 300-30mg TAB PO PRN (19:20)
[2021-09-08] MEDS ORDERED: ONDANSETRON 4 MG/2 ML VIAL IVP PRN (19:38)
[2021-09-08 19:54] LABS: Albumin 3.8 g/dL (3.5-5.0); Calcium 9.5 mg/dL (8.4-10.2); Potassium 4.2 mmol/L (3.5-5.1); Total Bilirubin 0.5 mg/dL (0.2-1.3); Total Protein 6.5 g/dL (6.3-8.2)
[2021-09-08 19:57] LABS: Basophils % (A) 0 %; Eosinophils % (A) 0 %; HCT 37.6 % (34.0-46.0); HGB 12.1 gm/dL (11.4-16.0); Hypochromasia Slight; Lymphocytes # (A) 1.4 k/uL (1.0-4.8); Lymphocytes % (A) 6 %; MCH 29.5 pg (25.0-35.0); MCHC 32.2 g/dL (31.0-37.0); MCV 91.8 fL (80.0-100.0); Mean Platelet Volume 8.3; Monocytes # (A) 0.7 k/uL (0-1.0); Monocytes % (A) 4 %; Neutrophils # (A) 18.7 k/uL (1.3-7.7); Neutrophils % (A) 89 %; Platelet Count 331 k/uL (150-450); RBC 4.09 m/uL (3.80-5.40); RDW 14.8 % (11.5-15.5)
[2021-09-09] MEDS: SODIUM CHLORIDE 0.9% 1,000 ML IV SCH ×2 (06:10→08:36)
[2021-09-09 07:27] LABS: Glucose,Whole Blood 96 mg/dL (75-99)
[2021-09-09] MEDS: PANTOPRAZOLE 40 MG TABLET PO SCH (08:35)
[2021-09-09] MEDS: ATORVASTATIN 80 MG TAB PO SCH (08:35)
[2021-09-09] MEDS: SUCRALFATE 1 GM TAB PO SCH ×2 (08:35→17:11)
[2021-09-09] MEDS ORDERED: lisinopriL 10 MG TAB PO SCH (09:00)
[2021-09-09] MEDS ORDERED: amLODIPine 2.5 MG TAB PO SCH (09:00)
--- NOTE | 2021-09-09 09:31 | P.CNOR ---
History of Present Illness - [facility] Consult date: 09/09/21 History of present illness: The patient is a very pleasant 76-year-old female with multiple medical problems was admitted to internal medicine. She had a recent fall about a week ago and in the course of her workup had x-rays the left upper extremity. Orthopedics has been consulted for a left proximal humerus fracture and a left olecranon fracture. At the time of my consultation the patient is sitting up at bedside eating breakfast. She is in a sling. She has pain diffusely throughout the left arm. She denies pain in the right arm or bilateral lower extremities. The patient notes that she has residual left-sided weakness from a prior stroke. Past Medical History Past Medical History: CVA/TIA, Hyperlipidemia, Hypertension, Memory Impairment Additional Past Medical History / Comment(s): HX STROKE DECEMBER 2016 WITH LEFT HEMIPLEGIA, SPEECH SLOW, MOSTLY IN WHEELCHAIR -BUT ABLE TO TRANSFER WITH ASSIST AND DOES WALK WITH ASSISTANCE ONLY., LIVES AT [facility]. OCCASIONAL CONFUSION., LOW HGB., SON MARIA LUISA SEQUEIRA HAS P.O.A. History of Any Multi-Drug Resistant Organisms: None Reported Past Surgical History: No Surgical Hx Reported Past Anesthesia/Blood Transfusion Reactions: Unable to Obtain Past Psychological History: No Psychological Hx Reported Smoking Status: Former smoker Past Alcohol Use History: None Reported Past Drug Use History: None Reported - Past Family History Father Family Medical History: Coronary Artery Disease (CAD) Medications and Allergies Home Medications Medication Instructions Recorded Confirmed Type Atorvastatin [Lipitor] 80 mg PO DAILY tab 12/28/16 09/08/21 Rx Donepezil [Aricept] 10 mg PO HS 09/26/17 09/08/21 History Omeprazole 20 mg PO BID 09/26/17 09/08/21 History QUEtiapine [SEROquel] 12.5 mg PO HS 09/26/17 09/08/21 History Sucralfate [Carafate] 1 gm PO AC-BID 09/26/17 09/08/21 History lisinopriL [Zestril] 10 mg PO DAILY 10/20/20 09/08/21 History Acetaminophen [Tylenol] 500 mg PO Q4-6H PRN #24 tab 09/08/21 Rx Docusate [Colace] 100 mg PO DAILY #30 capsule 09/08/21 Rx HYDROcodone/APAP 5-325MG [[place] 1 tab PO Q6HR PRN 3 Days #12 tab 09/08/21 Rx 5-325] Nitroglycerin Sl Tabs [Nitrostat] 0.4 mg SL Q5M PRN 09/08/21 09/08/21 History amLODIPine [Norvasc] 2.5 mg PO DAILY 09/08/21 09/08/21 History Allergies Allergy/AdvReac Type Severity Reaction Status Date / Time morphine AdvReac Nausea & Verified 09/08/21 20:55 Vomiting Physical Examination The patient is sitting up at bedside eating her breakfast. Her head is normocephalic and atraumatic. She demonstrates nonlabored breathing with symmetric chest expansion. There is no tenderness or deformity of the right upper and bilateral lower extremities. On inspection the left arm she is in a sling. There is diffuse swelling and ecchymosis throughout the upper arm and elbow. There is diffuse tenderness over the shoulder arm and olecranon. Her arm and former soft. The tips of her fingers are warm and well perfused with brisk capillary refill. Results X-rays of the left shoulder, humerus, and elbow show a displaced proximal humerus fracture and a nondisplaced olecranon fracture. There is diffuse osteopenia. - Labs Labs: Abnormal Lab Results - Last 24 Hours (Table) 09/08/21 09/08/21 Range/Units 19:16 19:16 WBC 21.0 H (3.8-10.6) k/uL Neutrophils # 18.7 H (1.3-7.7) k/uL Chloride 108 H (98-107) mmol/L BUN 18 H (7-17) mg/dL Glucose 163 H (74-99) mg/dL Alkaline Phosphatase 141 H (38-126) U/L H & H 09/08/21 Range/Units 19:16 Hgb 12.1 (11.4-16.0) gm/dL Hct 37.6 (34.0-46.0) % Result Diagrams: 09/08/21 19:16 09/08/21 19:16 Assessment and Plan Assessment: Acute and displaced left proximal humerus fracture and nondisplaced left olecranon fracture. The patient has a medical history of prior stroke with residual left-sided weakness. Plan: I would recommend nonoperative treatment at this time given the patient's medical comorbidities and history of stroke. We'll placed her in a posterior splint for her olecranon fracture and she should continue use of a sling. Following discharge she will need follow-up in our office with an upper extremity specialist. We will place her in a posterior splint later this morning.
--- NOTE | 2021-09-09 13:57 | P.HPIM ---
History of Present Illness H&P Date: 09/09/21 Chief Complaint: Fall Patient is a 76-year-old female with a known history of CVA with left upper extremity weakness and slow speech currently ambulates with assistance and wa lker, hypertension, hyperlipidemia and previous history of smoking was brought to ER status post fall. Patient slipped on the floor and came down on her left elbow and left shoulder and also left upper back and knee. Denies any hitting her head. No complaints of headache or dizziness. No neck pain. Patient denies any complaints of fevers or chills. No chest pain or shortness of breath. No numbness or tingling. Denies any recent illnesses. No nausea illnesses. No nausea vomiting abdominal pain or diarrhea. Denies any dysuria or hematuria. X-rays of the left elbow showed comminuted proximal left humeral neck fracture with displacement, possible impaction, left, lateral angulation. Left knee x-ray showed no acute fracture or dislocation. X-ray of the pelvis showed no fracture or dislocation is evident. CT head and cervical spine showed no acute intracranial hemorrhage or midline s hift or mass-effect. No acute fracture or dislocation seen in the cervical spine. Chronic changes seen on the CT head. Chronic degenerative changes of the cervical spine progressed in the interval. Thyroid gland nodules. Calcified bilateral upper lobe nodules. Laboratory data showed WBC 21.0 hemoglobin 12.1 with platelets 331 neutrophils 18.7 Chest x-ray showed no significant pulmonary abnormality. Left proximal humeral fracture. Review of Systems Constitutional: Patient denies any fever or chills . No generalized weakness or weight loss. Abdomen: Patient denied nausea vomiting and diarrhea and abdominal pain. Cardiovascular: Patient denies any chest pain or short of breath no palpitations. Respiratory: patient denied any cough is from production. No shortness of breath Neurologic: Patient denied any numbness or tingling headache. Musculoskeletal: Patient denies any complaints of joint swelling or deformity. Left shoulder pain. Complete review of systems could not be obtained from the patient except as per HPI and above. Past Medical History Past Medical History: CVA/TIA, Hyperlipidemia, Hypertension, Memory Impairment Additional Past Medical History / Comment(s): HX STROKE DECEMBER 2016 WITH LEFT HEMIPLEGIA, SPEECH SLOW, MOSTLY IN WHEELCHAIR -BUT ABLE TO TRANSFER WITH ASSIST AND DOES WALK WITH ASSISTANCE ONLY., LIVES AT [facility]. OCCASIONAL CONFUSION., LOW HGB., SON MARIA LUISA SEQUEIRA HAS P.O.A. History of Any Multi-Drug Resistant Organisms: None Reported Past Surgical History: No Surgical Hx Reported Past Anesthesia/Blood Transfusion Reactions: Unable to Obtain Past Psychological History: No Psychological Hx Reported Smoking Status: Former smoker Past Alcohol Use History: None Reported Past Drug Use History: None Reported - Past Family History Father Family Medical History: Coronary Artery Disease (CAD) Medications and Allergies Home Medications Medication Instructions Recorded Confirmed Type Atorvastatin [Lipitor] 80 mg PO DAILY tab 12/28/16 09/08/21 Rx Donepezil [Aricept] 10 mg PO HS 09/26/17 09/08/21 History Omeprazole 20 mg PO BID 09/26/17 09/08/21 History QUEtiapine [SEROquel] 12.5 mg PO HS 09/26/17 09/08/21 History Sucralfate [Carafate] 1 gm PO AC-BID 09/26/17 09/08/21 History lisinopriL [Zestril] 10 mg PO DAILY 10/20/20 09/08/21 History Acetaminophen [Tylenol] 500 mg PO Q4-6H PRN #24 tab 09/08/21 Rx Docusate [Colace] 100 mg PO DAILY #30 capsule 09/08/21 Rx HYDROcodone/APAP 5-325MG [[place] 1 tab PO Q6HR PRN 3 Days #12 tab 09/08/21 Rx 5-325] Nitroglycerin Sl Tabs [Nitrostat] 0.4 mg SL Q5M PRN 09/08/21 09/08/21 History amLODIPine [Norvasc] 2.5 mg PO DAILY 09/08/21 09/08/21 History Allergies Allergy/AdvReac Type Severity Reaction Status Date / Time morphine AdvReac Nausea & Verified 09/08/21 20:55 Vomiting Physical Exam Vitals: Vital Signs Temp Pulse Pulse Pulse Resp BP BP 09/09/21 05:00 98.7 F 79 20 96/57 09/09/21 02:00 97.8 F 72 20 128/73 09/08/21 22:45 72 20 09/08/21 22:10 97.8 F 79 15 127/57 09/08/21 20:58 77 12 121/72 09/08/21 19:00 66 12 92/59 09/08/21 18:12 12 09/08/21 18:03 99 12 117/70 09/08/21 17:25 136/64 09/08/21 14:45 97.6 F 86 18 142/87 Pulse Ox 09/09/21 05:00 100 09/09/21 02:00 97 09/08/21 22:45 09/08/21 22:10 95 09/08/21 20:58 97 09/08/21 19:00 94 L 09/08/21 18:12 09/08/21 18:03 91 L 09/08/21 17:25 09/08/21 14:45 99 Intake and Output 09/08/21 09/09/21 09/09/21 22:59 06:59 14:59 Intake Total 840 Balance 840 Intake: Intake, IV Titration 600 Amount Sodium Chloride 0.9% 1, 600 000 ml @ 75 mls/hr IV . [id number] [facility] Rx#:[id number] Oral 240 Other: Voiding Method Toilet Weight 72.575 kg PHYSICAL EXAMINATION: Patient is lying in the bed comfortably, no acute distress, awake alert and oriented.. HEENT: Normocephalic. Neck is supple. Pupils reactive. Nostrils clear. Oral cavity is moist. Neck reveals no JVD, carotid bruits, or thyromegaly. CHEST EXAMINATION: Trachea is central. Symmetrical expansion. Lung goldstein clear to auscultation and percussion. CARDIAC: Normal S1, S2 with no gallops. No murmurs ABDOMEN: Soft. Bowel sounds normal. No organomegaly. No abdominal bruits. Extremities: reveal no edema. No clubbing or cyanosis Neurologically awake, alert, oriented x2-3. Dementia, left upper activity weakness and dysarthria Skin: No rash or skin lesions. Psychiatric: Coperative. Could not be assessed completely. Musculoskeletal: No joint swelling or deformity. Left upper extremity sling in place and decreased range of motion. Results CBC & Chem 7: 09/08/21 19:16 09/08/21 19:16 Labs: Abnormal Lab Results - Last 24 Hours (Table) 09/08/21 09/08/21 Range/Units 19:16 19:16 WBC 21.0 H (3.8-10.6) k/uL Neutrophils # 18.7 H (1.3-7.7) k/uL Chloride 108 H (98-107) mmol/L BUN 18 H (7-17) mg/dL Glucose 163 H (74-99) mg/dL Alkaline Phosphatase 141 H (38-126) U/L Thrombosis Risk Factor Assmnt - DVT/VTE Prophylaxis DVT/VTE Prophylaxis: Pharmacologic Prophylaxis ordered - Choose All That Apply Any of the Below Risk Factors Present?: No Other Risk Factors: Yes Each Risk Factor Represents 3 Points: Age 75 years or older Other congenital or acquired thrombophilia - If yes, enter type in comment: No Thrombosis Risk Factor Assessment Total Risk Factor Score: 3 Thrombosis Risk Factor Assessment Level: Moderate Risk Assessment and Plan Assessment: Left proximal humerus fracture displaced. Status post mechanical fall. Nondisplaced left olecranial fracture Leukocytosis. Likely reactive. Chest x-ray negative. Follow-up UA and repeat CBC History of CVA with left-sided upper extremity weakness and slow speech. Hypertension Hyperlipidemia Memory impairment Previous history of smoking DVT prophylaxis with heparin subcu Plan: Patient will be continued gentle IV hydration and pain management. Patient was seen by orthopedic surgery and is currently status post sling placement to the left upper extremity. Continue with home medications continue with home medications and follow-up closely. Possible discharge in the next 24 hours and outpatient orthopedic surgery follow-up. Time with Patient: Greater than 30
[2021-09-09] MEDS: QUEtiapine 25 MG TAB PO SCH (20:23)
[2021-09-09] MEDS: HEPARIN SODIUM,PORCINE/PF 5,000 UNIT/0.5 ML SYRINGE SQ SCH (20:23)
[2021-09-09] MEDS: DONEPEZIL 10 MG TAB PO SCH (20:23)
[2021-09-10 00:30] LABS: Basophils # (A) 0.02 X 10*3/uL (0.00-0.10); Basophils % (A) 0.1 %; Eosinophils # (A) 0.01 X 10*3/uL (0.04-0.35); Eosinophils % (A) 0.1 %; HCT 32.2 % (37.2-46.3); HGB 10.1 g/dL (12.0-15.0); Immature Grans, Automated 0.4 %; Lymphocytes # (A) 2.46 X 10*3/uL (0.90-5.00); Lymphocytes % (A) 17.6 %; MCH 28.5 pg (27.0-32.0); MCHC 31.4 g/dL (32.0-37.0); MCV 90.7 fL (80.0-97.0); Mean Platelet Volume 11.7 fL (9.5-12.2); Monocytes # (A) 1.11 X 10*3/uL (0.20-1.00); Monocytes % (A) 7.9 %; NRBC Per 100 WBC 0 /100 WBCS (0.0-0.0); Neutrophils # (A) 10.35 X 10*3/uL (1.80-7.70); Neutrophils % (A) 73.9 %; Platelet Count 303 X 10*3/uL (140-440); RBC 3.55 X 10*6/uL (4.10-5.20); RDW 15.1 % (11.5-14.5)
[2021-09-10] MEDS: SODIUM CHLORIDE 0.9% 1,000 ML IV SCH ×2 (02:17→13:34)
[2021-09-10 04:22] LABS: Appearance,Urine Cloudy (Clear); Bacteria,Urine Few /hpf; Bilirubin,Urine Negative (Negative); Blood,Urine Negative (Negative); Color,Urine Yellow; Glucose,Urine (UA) Negative (Negative); Ketones,Urine Negative (Negative); Leukocyte Esterase,Urine Large (Negative); Mucus,Urine Rare /hpf; Nitrite,Urine Positive (Negative); PH, Urine 5.5 (5.0-8.0); Protein,Urine Negative (Negative); RBC,Urine 2 /hpf (0-5); Specific Gravity,Urine 1.013 (1.001-1.035); Squamous Epithelial Cell,Urine 9 /hpf (0-4); Transitional Epi Cells,Urine <1 /hpf (0-1); Urobilinogen,Urine <2.0 mg/dL (<2.0); WBC,Urine 66 /hpf (0-5)
[2021-09-10] MEDS: HEPARIN SODIUM,PORCINE/PF 5,000 UNIT/0.5 ML SYRINGE SQ SCH ×2 (07:58→20:00)
[2021-09-10] MEDS: SUCRALFATE 1 GM TAB PO SCH ×2 (07:58→17:01)
[2021-09-10] MEDS: ATORVASTATIN 80 MG TAB PO SCH (07:58)
[2021-09-10] MEDS: PANTOPRAZOLE 40 MG TABLET PO SCH (07:58)
--- NOTE | 2021-09-10 10:56 | P.PN ---
Progress Note - Text Progress Note Date: 09/10/21 The patient was seen at bedside this morning. She has a displaced left proximal humerus fracture and a nondisplaced left olecranon fracture. She was placed in a posterior splint yesterday and has a sling. No plans for operative treatment at this time. She is okay to discharge from orthopedic standpoint. She should follow-up in the office in 1 week for x-rays of the left shoulder and elbow with our hand and upper extremity specialist Dr. Leti Roldan.
[2021-09-10] MEDS: DONEPEZIL 10 MG TAB PO SCH (20:00)
[2021-09-10] MEDS: QUEtiapine 25 MG TAB PO SCH (20:00)
[2021-09-11] MEDS: SODIUM CHLORIDE 0.9% 1,000 ML IV SCH ×2 (02:34→20:15)
[2021-09-11] MEDS: ATORVASTATIN 80 MG TAB PO SCH (08:50)
[2021-09-11] MEDS: SUCRALFATE 1 GM TAB PO SCH ×2 (08:50→17:40)
[2021-09-11] MEDS: PANTOPRAZOLE 40 MG TABLET PO SCH (08:50)
[2021-09-11] MEDS: HEPARIN SODIUM,PORCINE/PF 5,000 UNIT/0.5 ML SYRINGE SQ SCH ×2 (08:51→20:15)
[2021-09-11 10:45] LABS: Basophils % (A) 0 %; Eosinophils # (A) 0.1 k/uL (0-0.7); Eosinophils % (A) 1 %; HCT 31.7 % (34.0-46.0); Hypochromasia Marked; Lymphocytes # (A) 1.9 k/uL (1.0-4.8); Lymphocytes % (A) 20 %; MCH 30.6 pg (25.0-35.0); MCHC 31.5 g/dL (31.0-37.0); Mean Platelet Volume 8.5; Monocytes # (A) 0.5 k/uL (0-1.0); Monocytes % (A) 5 %; Neutrophils # (A) 7.1 k/uL (1.3-7.7); Neutrophils % (A) 72 %; Platelet Count 264 k/uL (150-450); RBC 3.27 m/uL (3.80-5.40); RDW 14.7 % (11.5-15.5); WBC 9.9 k/uL (3.8-10.6)
[2021-09-11 10:47] LABS: African American GFR (CKD) >90 (>60 ml/min/1.73 sqM); Anion Gap 7 mmol/L; Blood Urea Nitrogen 14 mg/dL (7-17); Calcium 8.3 mg/dL (8.4-10.2); Carbon Dioxide 20 mmol/L (22-30); Chloride 114 mmol/L (98-107); Glucose 131 mg/dL (74-99); Non-African American GFR(CKD) 87 (>60 ml/min/1.73 sqM); Potassium 3.6 mmol/L (3.5-5.1); Sodium 141 mmol/L (137-145)
--- NOTE | 2021-09-11 13:35 | P.PN ---
Subjective Progress Note Date: 09/10/21 Patient is a 76-year-old female with a known history of CVA with left upper extremity weakness and slow speech currently ambulates with assistance and walker, hypertension, hyperlipidemia and previous history of smoking was brought to ER status post fall. Patient slipped on the floor and came down on her left elbow and left shoulder and also left upper back and knee. Denies any hitting her head. No complaints of headache or dizziness. No neck pain. Patient denies any complaints of fevers or chills. No chest pain or shortness of breath. No numbness or tingling. Denies any recent illnesses. No nausea illnesses. No nausea vomiting abdominal pain or diarrhea. Denies any dysuria or hematuria. X-rays of the left elbow showed comminuted proximal left humeral neck fracture with displacement, possible impaction, left, lateral angulation. Left knee x-ray showed no acute fracture or dislocation. X-ray of the pelvis showed no fracture or dislocation is evident. CT head and cervical spine showed no acute intracranial hemorrhage or midline shift or mass-effect. No acute fracture or dislocation seen in the cervical spine. Chronic changes seen on the CT head. Chronic degenerative changes of the cervical spine progressed in the interval. Thyroid gland nodules. Calcified bilateral upper lobe nodules. Laboratory data showed WBC 21.0 hemoglobin 12.1 with platelets 331 neutrophils 18.7 Chest x-ray showed no significant pulmonary abnormality. Left proximal humeral fracture. 09/10/2021 Patient is currently sitting in a chair comfortably. Left arm sling in place. Pain is better controlled. No complaints of fever or chills. No dysuria or hematuria. Patient is tolerating oral diet. Did not have bowel movement today. No complains of chest pain or shortness of breath. No headache or dizziness or lightheadedness. Laboratory data showed a WBC trending down to 14.4. Urine culture was sent and follow-up sensitivity report. Current medications reviewed. Objective - Vital Signs Vital signs: Vital Signs Temp 98.1 F 09/10/21 12:26 Pulse 109 H 09/10/21 12:26 Resp 18 09/10/21 12:26 BP 158/75 09/10/21 12:26 Pulse Ox 95 09/10/21 12:26 Intake & Output 09/09/21 09/10/21 09/10/21 18:59 06:59 18:59 Intake Total 750 0 Balance 750 0 Intake: Intake, IV Titration 750 Amount Sodium Chloride 0.9% 1, 750 000 ml @ 75 mls/hr IV . [id number] [facility] Rx#:[id number] Oral 0 Other: Voiding Method Toilet # Voids 3 1 - Exam PHYSICAL EXAMINATION: Patient is lying in the bed comfortably, no acute distress, awake alert and oriented.. HEENT: Normocephalic. Neck is supple. Pupils reactive. Nostrils clear. Oral cavity is moist. Neck reveals no JVD, carotid bruits, or thyromegaly. CHEST EXAMINATION: Trachea is central. Symmetrical expansion. Lung goldstein clear to auscultation and percussion. CARDIAC: Normal S1, S2 with no gallops. No murmurs ABDOMEN: Soft. Bowel sounds normal. No organomegaly. No abdominal bruits. Extremities: reveal no edema. No clubbing or cyanosis Neurologically awake, alert, oriented x2-3. Dementia, left upper activity weakness and dysarthria Skin: No rash or skin lesions. Psychiatric: Coperative. Could not be assessed completely. Musculoskeletal: No joint swelling or deformity. Left upper extremity sling in place and decreased range of motion. - Labs CBC & Chem 7: 09/11/21 09:58 09/11/21 09:58 Labs: Abnormal Lab Results - Last 24 Hours (Table) 09/09/21 09/10/21 Range/Units 07:10 03:55 WBC 14.00 H (4.50-10.00) X 10*3/uL RBC 3.55 L (4.10-5.20) X 10*6/uL Hgb 10.1 L (12.0-15.0) g/dL Hct 32.2 L (37.2-46.3) % MCHC 31.4 L (32.0-37.0) g/dL RDW 15.1 H (11.5-14.5) % Immature Gran # 0.05 H (0.00-0.04) X 10*3/uL Neutrophils # 10.35 H (1.80-7.70) X 10*3/uL Monocytes # 1.11 H (0.20-1.00) X 10*3/uL Eosinophils # 0.01 L (0.04-0.35) X 10*3/uL Urine Appearance Cloudy H (Clear) Urine Nitrite Positive H (Negative) Ur Leukocyte Esterase Large H (Negative) Urine WBC 66 H (0-5) /hpf Urine WBC Clumps Rare H (None) /hpf Ur Squamous Epith Cells 9 H (0-4) /hpf Urine Bacteria Few H (None) /hpf Urine Mucus Rare H (None) /hpf Microbiology - Last 24 Hours (Table) 09/10/21 03:55 Urine Culture - Preliminary Urine,Voided Assessment and Plan Assessment: Left proximal humerus fracture displaced. Status post mechanical fall. Nondisplaced left olecranial fracture Leukocytosis. Possible UTI History of CVA with left-sided upper extremity weakness and slow speech. Hypertension Hyperlipidemia Memory impairment Previous history of smoking DVT prophylaxis with heparin subcu Plan: Patient will be continued gentle IV hydration and pain management. Patient was seen by orthopedic surgery and is currently status post sling placement to the left upper extremity. Urine culture was sent and the patient will be started on antibiotics. Patient denied any dysuria or hematuria. Continue with home medications continue with home medications and follow-up closely. Possible discharge in the next 24 hours and outpatient orthopedic surgery follow-up. Time with Patient: Greater than 30
[2021-09-11] MEDS: DONEPEZIL 10 MG TAB PO SCH (20:14)
[2021-09-11] MEDS: QUEtiapine 25 MG TAB PO SCH (20:14)
--- NOTE | 2021-09-11 22:24 | P.PN ---
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 Patient slipped on the floor and came down on her left elbow and left shoulder and also left upper back and knee. Denies any hitting her head. No complaints of headache or dizziness. No neck pain. Patient denies any complaints of fevers or chills. No chest pain or shortness of breath. No numbness or tingling. Denies any recent illnesses. No nausea illnesses. No nausea vomiting abdominal pain or diarrhea. Denies any dysuria or hematuria. X-rays of the left elbow showed comminuted proximal left humeral neck fracture with displacement, possible impaction, left, lateral angulation. Left knee x-ray showed no acute fracture or dislocation. X-ray of the pelvis showed no fracture or dislocation is evident. CT head and cervical spine showed no acute intracranial hemorrhage or midline shift or mass-effect. No acute fracture or dislocation seen in the cervical spine. Chronic changes seen on the CT head. Chronic degenerative changes of the cervical spine progressed in the interval. Thyroid gland nodules. Calcified bilateral upper lobe nodules. Laboratory data showed WBC 21.0 hemoglobin 12.1 with platelets 331 neutrophils 18.7 Chest x-ray showed no significant pulmonary abnormality. Left proximal humeral fracture. 09/10/2021 Patient is currently sitting in a chair comfortably. Left arm sling in place. Pain is better controlled. No complaints of fever or chills. No dysuria or hematuria. Patient is tolerating oral diet. Did not have bowel movement today. No complains of chest pain or shortness of breath. No headache or dizziness or lightheadedness. Laboratory data showed a WBC trending down to 14.4. Urine culture was sent and follow-up sensitivity report. 09/11/2021 Patient is seen and evaluated this morning and is being closely monitored. Patient is currently sitting up in the chair asleep, but arousable. Patient being followed by orthopedics and continued with a sling. Patient urinalysis was positive and will start IV ceftriaxone while awaiting cultures. Patient awaiting insurance auth and accepting facility with social work following closely. Patient WBC normalized. Hemoglobin stable. Patient continues with weakness. Patient denies chest pain or shortness of breath. Patient is afebrile. Review of systems: Constitutional: reports of fatigue, no reports of fever, or chills Cardiovascular: No reports of chest pain or palpitations Respiratory: No reports of shortness of breath GI: No reports of nausea, no reports of vomiting : No reports of dysuria or retention Neurovascular: reports of generalized weakness All medications have been reviewed Active Medications Acetaminophen/Codeine Phosphate (Acetaminophen-Codeine 300-30mg Tab) 1 each PO Q4HR PRN PRN Reason: Moderate Pain Atorvastatin Calcium (Atorvastatin 80 Mg Tab) 80 mg PO DAILY [facility] Last Admin: 09/11/21 08:50 Dose: 80 mg Documented by: Donepezil HCl (Donepezil 10 Mg Tab) 10 mg PO HS [facility] Last Admin: 09/11/21 20:14 Dose: 10 mg Documented by: Heparin Sodium (Porcine) (Heparin Sodium,Porcine/Pf 5,000 Unit/0.5 Ml Syringe) 5,000 unit SQ Q12HR [facility] Last Admin: 09/11/21 20:15 Dose: Not Given Documented by: Sodium Chloride (Saline 0.9%) 1,000 mls @ 75 mls/hr IV .[id number] [facility] Last Admin: 09/11/21 20:15 Dose: Not Given Documented by: Ceftriaxone Sodium 2 gm/ (Sodium Chloride) 50 mls @ 100 mls/hr IVPB Q24HR [facility]; Protocol Last Admin: 09/11/21 14:35 Dose: 100 mls/hr Documented by: Naloxone HCl (Naloxone 0.4 Mg/Ml 1 Ml Vial) 0.2 mg IV Q2M PRN PRN Reason: Opioid Reversal Ondansetron HCl (Ondansetron 4 Mg/2 Ml Vial) 4 mg IVP Q6HR PRN PRN Reason: Nausea And Vomiting Last Admin: 09/08/21 19:39 Dose: 4 mg Documented by: Pantoprazole Sodium (Pantoprazole 40 Mg Tablet) 40 mg PO AC-BRKFST [facility] Last Admin: 09/11/21 08:50 Dose: 40 mg Documented by: Quetiapine Fumarate (Quetiapine 25 Mg Tab) 12.5 mg PO HS [facility] Last Admin: 09/11/21 20:14 Dose: 12.5 mg Documented by: Sucralfate (Sucralfate 1 Gm Tab) 1 gm PO AC-BID [facility] Last Admin: 09/11/21 17:40 Dose: Not Given Documented by: PHYSICAL EXAMINATION: GENERAL: The patient is alert and oriented , well developed, well nourished HEENT: Pupils are round and equally reacting to light. EOMI. no scleral icterus. No conjunctival pallor. Normocephalic, atraumatic. No pharyngeal erythema. No thyromegaly. CARDIOVASCULAR: S1 and S2 muffled PULMONARY: diminished breath sounds bilaterally with some mild scattered rhonchi noted. ABDOMEN: soft. non-tender on exam. thin. non-distended, normoactive bowel soun ds. No palpable organomegaly. MUSCULOSKELETAL: No joint swelling or deformity. EXTREMITIES: No cyanosis, clubbing, or pedal edema. NEUROLOGICAL: no focal deficits noted. diffuse weakness SKIN: No rashes. no lesions noted Assessment: Left proximal humerus fracture displaced. Status post mechanical fall. Non-displaced left olecranial fracture Leukocytosis. possibly secondary to acute urinary tract infection, present on admission History of CVA with left-sided upper extremity weakness and slow speech. Hypertension Hyperlipidemia Memory impairment Previous history of smoking DVT prophylaxis with heparin subcu GI prophylaxis full code Plan: Patient will be continued gentle IV hydration and pain management. Patient was seen by orthopedic surgery and is currently status post sling placement to the left upper extremity. Patient to follow with orthopedics in the outpatient setting. Patient had urinalysis that was positive and will start ceftriaxone and await cultures. Patient denies any dysuria or hematuria. Continue with home medications continue with home medications and follow-up closely. Possible discharge in the next 24 hours and outpatient orthopedic surgery follow-up. Social work following and awaiting insurance authorization to [facility]. Objective - Vital Signs Vital signs: Vital Signs Temp 98.1 F 09/11/21 05:00 Pulse 99 09/11/21 05:00 Resp 15 09/11/21 05:00 BP 102/66 09/11/21 05:00 Pulse Ox 95 09/11/21 05:00 Intake & Output 09/10/21 09/11/21 09/11/21 18:59 06:59 18:59 Intake Total 2480 1260 Balance 2480 1260 Intake: Intake, IV Titration 900 900 Amount Sodium Chloride 0.9% 1, 900 900 000 ml @ 75 mls/hr IV . [id number] [facility] Rx#:[id number] Oral 1580 360 Other: Voiding Method Toilet # Voids 4 2 # Bowel Movements 1 - Labs CBC & Chem 7: 09/11/21 09:58 09/11/21 09:58 Labs: Microbiology - Last 24 Hours (Table) 09/10/21 03:55 Urine Culture - Preliminary Urine,Voided
[2021-09-11] MEDS ORDERED: QUEtiapine 25 MG TAB PO STA (22:25)
[2021-09-11] MEDS ORDERED: QUEtiapine 25 MG TAB PO SCH (22:30)
[2021-09-12] MEDS: SODIUM CHLORIDE 0.9% 1,000 ML IV SCH (04:41)
[2021-09-12] MEDS: ATORVASTATIN 80 MG TAB PO SCH (10:04)
[2021-09-12] MEDS: PANTOPRAZOLE 40 MG TABLET PO SCH (10:04)
[2021-09-12] MEDS: SUCRALFATE 1 GM TAB PO SCH (10:04)
[2021-09-12] MEDS: HEPARIN SODIUM,PORCINE/PF 5,000 UNIT/0.5 ML SYRINGE SQ SCH (10:07)
[2021-09-12 11:35] VITALS: BP 148/79; PULSE 76; RESP 18; TEMP 98
--- NOTE | 2021-09-12 12:35 | P.DS ---
Providers Date of admission: 09/08/21 19:20 Expected date of discharge: 09/12/21 Attending physician: Kaycee Kumar Consults: 09/08/21 19:21 Consult Physician Routine Consulting Provider: Carroll Barth Consult Reason/Comments: Humerus fracture Do you want consulting provider notified?: Yes Primary care physician: Dee Marcus Hospital Course: Final diagnosis Left proximal humerus fracture displaced. Status post mechanical fall. Non-displaced left olecranial fracture Leukocytosis. possibly secondary to acute urinary tract infection, present on admission, improved History of CVA with left-sided upper extremity weakness and slow speech. Hypertension Hyperlipidemia Memory impairment Previous history of smoking DVT prophylaxis with heparin subcu GI prophylaxis full code Discharge disposition Patient is being discharged in a stable condition with guarded prognosis to [facility] for continued PT/OT therapy.. Patient will follow-up with primary care provider upon discharge. Patient will continue with a short course of oral antibiotics in the form of Ceftin 500 mg twice daily for the next 4 days and then may discontinue. Patient will also need follow-up with orthopedics in the outpatient setting. Total time taken is greater than 35 minutes. Hospital course This is a 76-year-old female who was recently admitted with recent fall and striking and landing on her left elbow and left shoulder and left upper back and knee and x-ray show left elbow comminuted proximal left humeral neck fracture with displacement possible impaction and left lateral angulation and was being monitored closely by orthopedics. Patient currently has a left arm sling in place and will be following up with orthopedics in the outpatient setting. Patient also was found to have a urinary tract infection, present on admission and cultures have finalized showing E. coli with sensitivity. Patient was maintained on IV ceftriaxone and we'll transition to oral Ceftin 500 mg twice daily for the next 4 days and then may discontinue. Recommend the patient continue with subcu heparin for DVT prophylaxis at this time. Currently no reports of chest pain, shortness of breath, or palpitations. Patient is afebrile. No reports of nausea or vomiting and patient is tolerating diet. Patient to be discharged to [facility] today. Guarded prognosis. PHYSICAL EXAMINATION: GENERAL: The patient is alert and oriented , well developed, well nourished HEENT: Pupils are round and equally reacting to light. EOMI. no scleral icterus. No conjunctival pallor. Normocephalic, atraumatic. No pharyngeal erythema. No thyromegaly. CARDIOVASCULAR: S1 and S2 muffled PULMONARY: diminished breath sounds bilaterally with no wheezing or rhonchi noted. ABDOMEN: soft. non-tender on exam. thin. non-distended, normoactive bowel sounds. No palpable organomegaly. MUSCULOSKELETAL: No joint swelling or deformity. EXTREMITIES: No cyanosis, clubbing, or pedal edema. NEUROLOGICAL: no focal deficits noted. diffuse weakness SKIN: No rashes. no lesions noted. Left upper extremity swelling noted with multiple areas of bruising and healing noted, positive pulses and able to move fingers with no tingling or numbness noted Please refer to medication reconciliation sheet for a list of medications. The impression and plan of care has been dictated by Camelia Mcadams, nurse practitioner as directed. MD Elizabeth I have performed a history and examination and MDM of this patient, discussed the same with the dictator, and agree with the dictator's assessment and plan as written ,documented as a scribe. Based on total visit time, I have performed more than 50% of the visit. Any additional findings or plans will be noted. Patient Condition at Discharge: Good Plan - Discharge Summary Discharge Rx Participant: No New Discharge Prescriptions: New HYDROcodone/APAP 5-325MG [[place] 5-325] 1 tab PO Q6HR PRN 3 Days #12 tab PRN Reason: Pain Acetaminophen [Tylenol] 500 mg PO Q4-6H PRN #24 tab PRN Reason: Pain Docusate [Colace] 100 mg PO DAILY #30 capsule Cefuroxime Axetil [Ceftin] 500 mg PO BID 4 Days #8 tab Continue Atorvastatin [Lipitor] 80 mg PO DAILY tab Sucralfate [Carafate] 1 gm PO AC-BID Omeprazole 20 mg PO BID Donepezil [Aricept] 10 mg PO HS amLODIPine [Norvasc] 2.5 mg PO DAILY Nitroglycerin Sl Tabs [Nitrostat] 0.4 mg SL Q5M PRN PRN Reason: Chest Pain Changed QUEtiapine [SEROquel] 25 mg PO HS #0 Discontinued lisinopriL [Zestril] 10 mg PO DAILY Discharge Medication List Atorvastatin [Lipitor] 80 mg PO DAILY tab 06/16/17 [Rx] Donepezil [Aricept] 10 mg PO HS 09/26/17 [History] Omeprazole 20 mg PO BID 09/26/17 [History] Sucralfate [Carafate] 1 gm PO AC-BID 09/26/17 [History] Acetaminophen [Tylenol] 500 mg PO Q4-6H PRN #24 tab 09/08/21 [Rx] Docusate [Colace] 100 mg PO DAILY #30 capsule 09/08/21 [Rx] HYDROcodone/APAP 5-325MG [[place] 5-325] 1 tab PO Q6HR PRN 3 Days #12 tab 09/08/21 [Rx] Nitroglycerin Sl Tabs [Nitrostat] 0.4 mg SL Q5M PRN 09/08/21 [History] amLODIPine [Norvasc] 2.5 mg PO DAILY 09/08/21 [History] Cefuroxime Axetil [Ceftin] 500 mg PO BID 4 Days #8 tab 09/12/21 [Rx] QUEtiapine [SEROquel] 25 mg PO HS #0 09/12/21 [Rx] Follow up Appointment(s)/Referral(s): Leti Roldan DO [Doctor of Osteopathic Medicine] - 1 Week Patient Instructions/Handouts: Arm Fracture in Adults (ED), How to Use a Sling (ED), Fall Prevention for Older Adults (ED) Activity/Diet/Wound Care/Special Instructions: Continue Tylenol 500 mg every 4-6 hours as needed for pain control. Apply ice 20 minutes on and off to the affected areas 4 times daily. Make a follow-up appointment with the orthopedic physician. Return to the ER if any problems arise or if any symptoms worsen. Patient is going to [facility] as tolerated Follow restriction instructions and continued sling per orthopedics and follow- up with orthopedics outpatient Continue with Ceftin 500 mg twice daily for the next 4 days to complete the course Continue regular diet Discharge Disposition: TRANSFER TO SNF/F
[2021-09-12] MEDS ORDERED: QUEtiapine 25 MG TAB PO SCH (21:00)
== END 2021-09-12 15:40 ==
LOC: EC 14:35 → 5NMEDONC 19:20 → INTOOBSV 09-11 13:32 → OBSVTOIN 09-11 13:32 → UNDODISIN 09-12 15:40
PROVIDERS: ADMIT Hospitalist; ATTEND Hospitalist
DX: S42.212A Unspecified displaced fracture of surgical neck of left humerus, initial encounter for closed fracture (principal); I69.354 Hemiplegia and hemiparesis following cerebral infarction affecting left non-dominant side; N39.0 Urinary tract infection, site not specified; S52.025A Nondisplaced fracture of olecranon process without intraarticular extension of left ulna, initial encounter for closed fracture; S80.02XA Contusion of left knee, initial encounter; D72.829 Elevated white blood cell count, unspecified; E78.5 Hyperlipidemia, unspecified; I10 Essential (primary) hypertension; I69.328 Other speech and language deficits following cerebral infarction; R41.3 Other amnesia; I95.9 Hypotension, unspecified; R53.1 Weakness; B96.20 Unspecified Escherichia coli [E. coli] as the cause of diseases classified elsewhere; M85.80 Other specified disorders of bone density and structure, unspecified site; Z87.891 Personal history of nicotine dependence; W01.0XXA Fall on same level from slipping, tripping and stumbling without subsequent striking against object, initial encounter; Y92.007 Garden or yard of unspecified non-institutional (private) residence as the place of occurrence of the external cause; Z79.899 Other long term (current) drug therapy; Z88.5 Allergy status to narcotic agent; Z82.49 Family history of ischemic heart disease and other diseases of the circulatory system
CPT/HCPCS: 96361 ×2; 96365; 96366; 96372 ×5; 96375; 99285; 97530; 97162; 97535; 97166; 80053; 80048; 85025 ×3; 81001; 87086; 87077; 87186; 72170; 73060; 73070; 73564; 71045; 72125; 70450; G0378 ×5; J2270; J2310; J2405; J0696 ×2; J1644 ×4

== ENCOUNTER 2022-01-12 07:40 | Inpatient (IN) | payer MEDICARE ==
[2022-01-12] MEDS ORDERED: ONDANSETRON 4 MG/2 ML VIAL IVP STA (07:50)
--- NOTE | 2022-01-12 07:53 | ED ---
General Adult HPI - General Stated complaint: Fall, Hip pain Time Seen by Provider: 01/12/22 07:43 Source: patient, EMS, RN notes reviewed Mode of arrival: EMS Limitations: physical limitation - History of Present Illness Initial comments: This is a 76-year-old female presents emergency from via EMS from [facility] chief complaint all fall. Patient states she lost her balance, fell onto her left hip and left elbow. Denies hitting her head. No loss conscious. Patient complains of left elbow pain which she's had a recent fracture of this. She also went to left hip pain. Patient is nauseated from discomfort. Denies any headache blurred vision no blood thinners. Denies any chest pain. Patient denies any abdominal pain no lower leg pain. Patient denies any recent fevers chills cough or cold-like symptoms. Patient was not given any medications by EMS prior arrival. Patient does not want anything for pain at this time. This was an unwitnessed fall patient states she didn't lose consciousness and and states she did not hit her head. She had no notable head injury. - Related Data Home Medications Medication Instructions Recorded Confirmed Donepezil [Aricept] 10 mg PO HS 09/26/17 09/08/21 Omeprazole 20 mg PO BID 09/26/17 09/08/21 Sucralfate [Carafate] 1 gm PO AC-BID 09/26/17 09/08/21 Nitroglycerin Sl Tabs [Nitrostat] 0.4 mg SL Q5M PRN 09/08/21 09/08/21 amLODIPine [Norvasc] 2.5 mg PO DAILY 09/08/21 09/08/21 Previous Rx's Medication Instructions Recorded Atorvastatin [Lipitor] 80 mg PO DAILY tab 12/28/16 Acetaminophen [Tylenol] 500 mg PO Q4-6H PRN #24 tab 09/08/21 Docusate [Colace] 100 mg PO DAILY #30 capsule 09/08/21 HYDROcodone/APAP 5-325MG [[place] 1 tab PO Q6HR PRN 3 Days #12 tab 09/12/21 5-325] Heparin Sodium,Porcine [Heparin 5,000 unit SQ Q12HR 30 Days #60 09/12/21 Sodium] each QUEtiapine [SEROquel] 25 mg PO HS #0 09/12/21 cefUROXime axetiL [Ceftin] 500 mg PO BID 4 Days #8 tab 09/12/21 Allergies Allergy/AdvReac Type Severity Reaction Status Date / Time morphine AdvReac Nausea & Verified 09/08/21 20:55 Vomiting Review of Systems ROS Statement: Those systems with pertinent positive or pertinent negative responses have been documented in the HPI. ROS Other: All systems not noted in ROS Statement are negative. 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 OCCASIONAL CONFUSION., LOW HGB., SON MARIA LUISA SEQUEIRA HAS P.O.A. History of Any Multi-Drug Resistant Organisms: None Reported Past Surgical History: No Surgical Hx Reported Past Anesthesia/Blood Transfusion Reactions: Unable to Obtain Past Psychological History: No Psychological Hx Reported Smoking Status: Former smoker Past Alcohol Use History: None Reported Past Drug Use History: None Reported - Past Family History Father Family Medical History: Coronary Artery Disease (CAD) General Exam Limitations: physical limitation General appearance: alert, in no apparent distress Head exam: Present: atraumatic, normocephalic, normal inspection Eye exam: Present: normal appearance, PERRL, EOMI. Absent: scleral icterus, conjunctival injection, periorbital swelling ENT exam: Present: normal exam, normal oropharynx, mucous membranes moist Neck exam: Present: normal inspection, full ROM. Absent: tenderness (Nontender), meningismus, lymphadenopathy Respiratory exam: Present: normal lung sounds bilaterally, chest wall tenderness. Absent: respiratory distress, wheezes, rales, rhonchi, stridor Cardiovascular Exam: Present: regular rate, normal rhythm, normal heart sounds. Absent: systolic murmur, diastolic murmur, rubs, gallop, clicks GI/Abdominal exam: Present: soft, normal bowel sounds. Absent: distended, tenderness, guarding, rebound, rigid Extremities exam: Present: other (Left elbow there is diffuse tenderness, no obvious deformity patient has limited range of motion neurovascular intact, tenderness to left hip with no obvious shortening or rotation ulcer palpable and equal bilaterally) Back exam: Present: normal inspection, full ROM. Absent: tenderness, paraspinal tenderness, vertebral tenderness Neurological exam: Present: alert, oriented X3, CN II-XII intact, reflexes normal, other (Finger to nose intact in the right difficult to assess, secondary to left arm injury). Absent: motor sensory deficit Skin exam: Present: warm, dry, intact, normal color. Absent: rash Course Vital Signs 01/12/22 01/12/22 01/12/22 07:42 08:30 09:00 Temperature 100.5 F H Pulse Rate 143 H 122 H 114 H Respiratory 27 H 16 16 Rate Blood Pressure 115/60 79/57 101/58 O2 Sat by Pulse 87 L 96 96 Oximetry 01/12/22 01/12/22 10:00 10:30 Temperature Pulse Rate 118 H 120 H Respiratory 16 16 Rate Blood Pressure 100/49 102/58 O2 Sat by Pulse 96 98 Oximetry Medical Decision Making - Medical Decision Making 76-year-old female presents emergency from for a fall. Patient found to be febrile, jaundice weakness. Patient has evidence of urinary tract infection, urosepsis. Patient was started on 2 g of Rocephin. Patient has acute kidney injury with a creatinine of 2. Patient was given fluid bolus, started osmin ntenance fluids. Patient does have a fracture left elbow, pubic rami fracture. Patient being admitted for urosepsis, acute kidney injury. Patient has stable fractures. She will consult to surgery and orthopedics. - Lab Data Result diagrams: 01/12/22 08:21 01/12/22 08:21 Lab Results 01/12/22 01/12/22 01/12/22 Range/Units 08:21 08:21 08:21 WBC 10.2 (3.8-10.6) k/uL RBC 4.54 (3.80-5.40) m/uL Hgb 13.3 (11.4-16.0) gm/dL Hct 40.8 (34.0-46.0) % MCV 89.9 (80.0-100.0) fL MCH 29.4 (25.0-35.0) pg MCHC 32.7 (31.0-37.0) g/dL RDW 16.2 H (11.5-15.5) % Plt Count 226 (150-450) k/uL MPV 9.1 Neutrophils % 94 % Lymphocytes % 4 % Monocytes % 1 % Eosinophils % 1 % Basophils % 0 % Neutrophils # 9.6 H (1.3-7.7) k/uL Lymphocytes # 0.4 L (1.0-4.8) k/uL Monocytes # 0.1 (0-1.0) k/uL Eosinophils # 0.1 (0-0.7) k/uL Basophils # 0.0 (0-0.2) k/uL Manual Slide Review Performed Hypochromasia Slight Anisocytosis Slight PT 10.4 (9.0-12.0) sec INR 1.0 (<1.2) APTT 19.7 L (22.0-30.0) sec Sodium 140 (137-145) mmol/L Potassium 4.3 (3.5-5.1) mmol/L Chloride 107 (98-107) mmol/L Carbon Dioxide 20 L (22-30) mmol/L Anion Gap 13 mmol/L BUN 23 H (7-17) mg/dL Creatinine 2.06 H (0.52-1.04) mg/dL Est GFR (CKD-EPI)AfAm 27 (>60 ml/min/1.73 sqM) Est GFR (CKD-EPI)NonAf 23 (>60 ml/min/1.73 sqM) Glucose 121 H (74-99) mg/dL Lactic Ac Sepsis Rflx Plasma Lactic Acid Noe (0.7-2.0) mmol/L Calcium 9.1 (8.4-10.2) mg/dL Magnesium 1.7 (1.6-2.3) mg/dL Total Bilirubin 0.7 (0.2-1.3) mg/dL AST 25 (14-36) U/L ALT 23 (4-34) U/L Alkaline Phosphatase 127 H (38-126) U/L Troponin I (0.000-0.034) ng/mL Total Protein 7.1 (6.3-8.2) g/dL Albumin 4.0 (3.5-5.0) g/dL Urine Color Urine Appearance (Clear) Urine RBC (0-5) /hpf Urine WBC (0-5) /hpf Coronavirus (PCR) (Not Detectd) Influenza Type A RNA (Not Detectd) Influenza Type B (PCR) (Not Detectd) 01/12/22 01/12/22 01/12/22 Range/Units 08:21 08:21 08:21 WBC (3.8-10.6) k/uL RBC (3.80-5.40) m/uL Hgb (11.4-16.0) gm/dL Hct (34.0-46.0) % MCV (80.0-100.0) fL MCH (25.0-35.0) pg MCHC (31.0-37.0) g/dL RDW (11.5-15.5) % Plt Count (150-450) k/uL MPV Neutrophils % % Lymphocytes % % Monocytes % % Eosinophils % % Basophils % % Neutrophils # (1.3-7.7) k/uL Lymphocytes # (1.0-4.8) k/uL Monocytes # (0-1.0) k/uL Eosinophils # (0-0.7) k/uL Basophils # (0-0.2) k/uL Manual Slide Review Hypochromasia Anisocytosis PT (9.0-12.0) sec INR (<1.2) APTT (22.0-30.0) sec Sodium (137-145) mmol/L Potassium (3.5-5.1) mmol/L Chloride (98-107) mmol/L Carbon Dioxide (22-30) mmol/L Anion Gap mmol/L BUN (7-17) mg/dL Creatinine (0.52-1.04) mg/dL Est GFR (CKD-EPI)AfAm (>60 ml/min/1.73 sqM) Est GFR (CKD-EPI)NonAf (>60 ml/min/1.73 sqM) Glucose (74-99) mg/dL Lactic Ac Sepsis Rflx Plasma Lactic Acid Noe 3.8 H* (0.7-2.0) mmol/L Calcium (8.4-10.2) mg/dL Magnesium (1.6-2.3) mg/dL Total Bilirubin (0.2-1.3) mg/dL AST (14-36) U/L ALT (4-34) U/L Alkaline Phosphatase (38-126) U/L Troponin I <0.012 (0.000-0.034) ng/mL Total Protein (6.3-8.2) g/dL Albumin (3.5-5.0) g/dL Urine Color Red Urine Appearance Bloody H (Clear) Urine RBC >182 H (0-5) /hpf Urine WBC >182 H (0-5) /hpf Coronavirus (PCR) (Not Detectd) Influenza Type A RNA (Not Detectd) Influenza Type B (PCR) (Not Detectd) 01/12/22 01/12/22 01/12/22 Range/Units 08:21 08:21 09:07 WBC (3.8-10.6) k/uL RBC (3.80-5.40) m/uL Hgb (11.4-16.0) gm/dL Hct (34.0-46.0) % MCV (80.0-100.0) fL MCH (25.0-35.0) pg MCHC (31.0-37.0) g/dL RDW (11.5-15.5) % Plt Count (150-450) k/uL MPV Neutrophils % % Lymphocytes % % Monocytes % % Eosinophils % % Basophils % % Neutrophils # (1.3-7.7) k/uL Lymphocytes # (1.0-4.8) k/uL Monocytes # (0-1.0) k/uL Eosinophils # (0-0.7) k/uL Basophils # (0-0.2) k/uL Manual Slide Review Hypochromasia Anisocytosis PT (9.0-12.0) sec INR (<1.2) APTT (22.0-30.0) sec Sodium (137-145) mmol/L Potassium (3.5-5.1) mmol/L Chloride (98-107) mmol/L Carbon Dioxide (22-30) mmol/L Anion Gap mmol/L BUN (7-17) mg/dL Creatinine (0.52-1.04) mg/dL Est GFR (CKD-EPI)AfAm (>60 ml/min/1.73 sqM) Est GFR (CKD-EPI)NonAf (>60 ml/min/1.73 sqM) Glucose (74-99) mg/dL Lactic Ac Sepsis Rflx Y Plasma Lactic Acid Noe (0.7-2.0) mmol/L Calcium (8.4-10.2) mg/dL Magnesium (1.6-2.3) mg/dL Total Bilirubin (0.2-1.3) mg/dL AST (14-36) U/L ALT (4-34) U/L Alkaline Phosphatase (38-126) U/L Troponin I (0.000-0.034) ng/mL Total Protein (6.3-8.2) g/dL Albumin (3.5-5.0) g/dL Urine Color Urine Appearance (Clear) Urine RBC (0-5) /hpf Urine WBC (0-5) /hpf Coronavirus (PCR) Not Detected (Not Detectd) Influenza Type A RNA Not Detected (Not Detectd) Influenza Type B (PCR) Not Detected (Not Detectd) Disposition Clinical Impression: UTI (urinary tract infection), Sepsis, Fracture of ramus of left pubis, Fracture of distal end of left humerus, Sacral fracture Disposition: ADMITTED IP TO THIS HOSP Condition: Fair Referrals: Dee Marcus MD [Primary Care Provider] - 1-2 days Time of Disposition: 11:00
[2022-01-12] MEDS ORDERED: SODIUM CHLORIDE 0.9% 1,000 ML IV ONE ×2 (08:12→10:35)
[2022-01-12] MEDS: ACETAMINOPHEN TAB 500 MG TAB PO STA ×2 (08:32→08:35)
[2022-01-12 08:57] LABS: Calcium 9.1 mg/dL (8.4-10.2); Magnesium 1.7 mg/dL (1.6-2.3); Total Bilirubin 0.7 mg/dL (0.2-1.3)
[2022-01-12 09:01] LABS: Potassium 4.3 mmol/L (3.5-5.1); Total Protein 7.1 g/dL (6.3-8.2)
[2022-01-12 09:06] LABS: Anisocytosis Slight; Basophils % (A) 0 %; Eosinophils # (A) 0.1 k/uL (0-0.7); Eosinophils % (A) 1 %; HCT 40.8 % (34.0-46.0); HGB 13.3 gm/dL (11.4-16.0); Hypochromasia Slight; Lymphocytes # (A) 0.4 k/uL (1.0-4.8); Lymphocytes % (A) 4 %; MCH 29.4 pg (25.0-35.0); MCHC 32.7 g/dL (31.0-37.0); MCV 89.9 fL (80.0-100.0); Mean Platelet Volume 9.1; Monocytes # (A) 0.1 k/uL (0-1.0); Monocytes % (A) 1 %; Neutrophils # (A) 9.6 k/uL (1.3-7.7); Neutrophils % (A) 94 %; Platelet Count 226 k/uL (150-450); Prothrombin Time 10.4 sec (9.0-12.0); RBC 4.54 m/uL (3.80-5.40); RDW 16.2 % (11.5-15.5); WBC 10.2 k/uL (3.8-10.6)
--- NOTE | 2022-01-12 09:14 | XR ---
EXAMINATION TYPE: XR elbow complete LT DATE OF EXAM: 01/12/2022 COMPARISON: NONE HISTORY: Pain FINDINGS: Three views of the elbow demonstrate diffuse osteopenia displaced comminuted fracture of the distal. Recommend CT scan. Soft tissue edema IMPRESSION: 1. Suspected displaced comminuted fracture of the distal humerus. Recommend CT
--- NOTE | 2022-01-12 09:14 | CT ---
EXAMINATION TYPE: CT brain justus wo con DATE OF EXAM: 01/12/2022 COMPARISON: 09/08/2021 HISTORY: 76-year-old female with pain after Fall out of bed CT DLP: 1413.1 mGycm Automated exposure control for dose reduction was used. Technique: Examination of the head was done in axial plane without intravenous contrast. Coronal and sagittal reconstructions performed. CT of the cervical spine was obtained in axial plane without intravenous injection of contrast mater ial. Coronal and sagittal reformatted images were obtained from the axial views for evaluation of f ractures, spinal alignment and canal. FINDINGS: Head: There is no evidence of acute intracranial hemorrhage, acute ischemic changes, mass, mass-effect, or extra-axial fluid collection. There is no effacement of cerebral sulci or basal subarachnoid cister ns. There is no hydrocephalus. There is no midline shift. [place]-white matter distinction is preserv ed. There is moderate generalized supratentorial volume loss. Secondary mild ventriculomegaly, right larg er than the left. Large areas of encephalomalacia right posterior parietal and right occipital lobes. Small areas of cortical encephalomalacia lateral right frontal lobe. Corresponding volume loss. Extra-axial calcification anterolateral aspect of the left middle cranial fossa measuring 1.4 cm is u nchanged, possible calcified meningioma. Mild mucosal thickening ethmoid air cells. Leftward nasal septal deviation. Orbits and globes are int act. Cervical spine: No craniocervical junction anomaly, predental space widening, or prevertebral soft tissue swelling. Moderate distention of the degenerative changes especially C5-C7 levels. Multilevel facet and uncovertebral joint arthropathy is present. There is degenerative grade 1 anterolisthesis C3-C4, C7-T1, T1-T2, T2-T3, T3-T4. Superior endplate deformity with resultant mild anterior wedging at T5 has a chronic appearance. Otherwise, no acute fracture seen. At C3-C4, there is moderate left neural foraminal stenosis. At C6/C7, there is moderate right neuroforaminal stenosis. No acute fracture seen of the cervical spine. Multiple calcified lymph nodes in the remington and numerous calcified granulomas in the visualized upper lungs compatible prior granulomatous disease. Sagittal and coronal reformatted images confirm above findings. COMBINED IMPRESSION: 1. 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 No acute intr acranial abnormality seen. 2. Superior endplate deformity of T5 has a chronic appearance. Previously not included in the field-o f-view for comparison. Otherwise, no acute fracture of the cervical spine. Degenerative grade 1 spond ylolisthesis at multiple levels. Moderate multilevel spondylotic change.
--- NOTE | 2022-01-12 09:15 | XR ---
EXAMINATION TYPE: XR Hip LT and AP Pelvis DATE OF EXAM: 01/12/2022 COMPARISON: 09/07/2019 HISTORY: Pain TECHNIQUE: A single AP view of the pelvis is obtained. Two views of the left hip are obtained. FINDINGS: There is deformity of the left anterior and superior pubic ramus suspicious for fractures. Left femoral neck is intact. There is osteopenia. Visualized SI joints symmetric. Vascular calcifica tions are noted. Bilateral hip arthropathy. IMPRESSION: 1. Suspect fractures involving the left anterior and superior pubic ramus mild displacement
[2022-01-12 09:22] LABS: Partial Thromboplastin Time 19.7 sec (22.0-30.0)
[2022-01-12] MEDS ORDERED: ACETAMINOPHEN IV (For NPO) 1,000 MG in EMPTY BAG 1 BAG IVPB STA (10:28)
[2022-01-12] MEDS ORDERED: SODIUM CHLORIDE 0.9% 500 ML 500 ML IV ONE (10:35)
[2022-01-12 11:13] LABS: RBC,Urine >182 /hpf (0-5); WBC,Urine >182 /hpf (0-5)
--- NOTE | 2022-01-12 11:18 | CT ---
EXAMINATION TYPE: CT abdomen pelvis wo con DATE OF EXAM: 01/12/2022 COMPARISON: None HISTORY: 76-year-old female with pain, fever. Pain, fall out of bed this morning CT DLP: 583 mGycm. Automated exposure control for dose reduction was used. TECHNIQUE: Contiguous axial scanning of the abdomen and pelvis without IV contrast. Coronal and sagit jacoby reconstructions performed. FINDINGS: Heart normal size without pericardial effusion. Numerous calcified lymph nodes at the remington and yadi us calcified granulomas bilaterally. There is prominent patchy dependent opacity in the posterior lef t base. Correlation should be made to exclude developing pneumonia. There is a small hiatal hernia. Artifacts from the patient's arms down by her side. Patient was unable to raise her arms. Otherwise, noncontrast appearance of the liver shows some small hypodensities measuring up to 8 mm in the left lobe, likely cysts. No abnormal gallbladder distention. A couple gallstones are present measuring up to 8 mm. Phrygian ca p noted. Noncontrast appearance of the gallbladder, adrenal glands, kidneys, and pancreas show no gross body. Calcified granulomas within the spleen. No dilated small bowel or free air. Liquid stool throughout the colon. Correlate for diarrheal state. Moderate atherosclerotic calcifications throughout the abdominal aorta and iliac arteries with fusifo rm ectasia infrarenal portion up to 2.6 cm. In the pelvis, there is moderate extraperitoneal hemorrhage and fluid, mostly anteriorly. Mild pelvic free fluid. Bladder collapsed with Bahena catheter in place. Uterus anteverted. Ovaries not clearly d elineated from adjacent bowel and fluid. No pelvic lymphadenopathy seen. Bones: There is a segmental fracture of the left inferior pubic ramus. Fracture of the left superior pubic ramus extending to the level of the pubic body. Mild degenerative change of both hips. There is also a nondisplaced vertical zone 1 left sacral alar fracture. Hypertrophic facet arthropathy with g rade 1 anterolisthesis L4-L5. IMPRESSION: 1. Moderate extraperitoneal hemorrhage and fluid within the pelvis, mostly anteriorly. Mild pelvic f ree fluid. Likely related to the left-sided pelvic fractures: 2. Segmental fracture left inferior pubic ramus and fracture of the superior left pubic ramus extend ing to the left pubic body. 3. Additional nondisplaced vertical zone 1 left sacral alar fracture. 4. Bahena catheter in place, decompressing the bladder. Follow-up as clinically indicated if concern for bladder injury.
[2022-01-12 11:30] LABS: Appearance,Urine Bloody (Clear); Color,Urine Red
[2022-01-12] MEDS ORDERED: ONDANSETRON 4 MG/2 ML VIAL IVP PRN (12:00)
[2022-01-12] MEDS ORDERED: NALOXONE 0.4 MG/ML 1 ML VIAL IV PRN (12:00)
--- NOTE | 2022-01-12 12:08 | ED ---
Medical Decision Making - Lab Data Result diagrams: 01/12/22 08:21 01/12/22 08:21 Lab Results 01/12/22 01/12/22 01/12/22 Range/Units 08:21 08:21 08:21 WBC 10.2 (3.8-10.6) k/uL RBC 4.54 (3.80-5.40) m/uL Hgb 13.3 (11.4-16.0) gm/dL Hct 40.8 (34.0-46.0) % MCV 89.9 (80.0-100.0) fL MCH 29.4 (25.0-35.0) pg MCHC 32.7 (31.0-37.0) g/dL RDW 16.2 H (11.5-15.5) % Plt Count 226 (150-450) k/uL MPV 9.1 Neutrophils % 94 % Lymphocytes % 4 % Monocytes % 1 % Eosinophils % 1 % Basophils % 0 % Neutrophils # 9.6 H (1.3-7.7) k/uL Lymphocytes # 0.4 L (1.0-4.8) k/uL Monocytes # 0.1 (0-1.0) k/uL Eosinophils # 0.1 (0-0.7) k/uL Basophils # 0.0 (0-0.2) k/uL Manual Slide Review Performed Hypochromasia Slight Anisocytosis Slight PT 10.4 (9.0-12.0) sec INR 1.0 (<1.2) APTT 19.7 L (22.0-30.0) sec Sodium 140 (137-145) mmol/L Potassium 4.3 (3.5-5.1) mmol/L Chloride 107 (98-107) mmol/L Carbon Dioxide 20 L (22-30) mmol/L Anion Gap 13 mmol/L BUN 23 H (7-17) mg/dL Creatinine 2.06 H (0.52-1.04) mg/dL Est GFR (CKD-EPI)AfAm 27 (>60 ml/min/1.73 sqM) Est GFR (CKD-EPI)NonAf 23 (>60 ml/min/1.73 sqM) Glucose 121 H (74-99) mg/dL Lactic Ac Sepsis Rflx Plasma Lactic Acid Noe (0.7-2.0) mmol/L Calcium 9.1 (8.4-10.2) mg/dL Magnesium 1.7 (1.6-2.3) mg/dL Total Bilirubin 0.7 (0.2-1.3) mg/dL AST 25 (14-36) U/L ALT 23 (4-34) U/L Alkaline Phosphatase 127 H (38-126) U/L Troponin I (0.000-0.034) ng/mL Total Protein 7.1 (6.3-8.2) g/dL Albumin 4.0 (3.5-5.0) g/dL Urine Color Urine Appearance (Clear) Urine RBC (0-5) /hpf Urine WBC (0-5) /hpf Coronavirus (PCR) (Not Detectd) Influenza Type A RNA (Not Detectd) Influenza Type B (PCR) (Not Detectd) 01/12/22 01/12/22 01/12/22 Range/Units 08:21 08:21 08:21 WBC (3.8-10.6) k/uL RBC (3.80-5.40) m/uL Hgb (11.4-16.0) gm/dL Hct (34.0-46.0) % MCV (80.0-100.0) fL MCH (25.0-35.0) pg MCHC (31.0-37.0) g/dL RDW (11.5-15.5) % Plt Count (150-450) k/uL MPV Neutrophils % % Lymphocytes % % Monocytes % % Eosinophils % % Basophils % % Neutrophils # (1.3-7.7) k/uL Lymphocytes # (1.0-4.8) k/uL Monocytes # (0-1.0) k/uL Eosinophils # (0-0.7) k/uL Basophils # (0-0.2) k/uL Manual Slide Review Hypochromasia Anisocytosis PT (9.0-12.0) sec INR (<1.2) APTT (22.0-30.0) sec Sodium (137-145) mmol/L Potassium (3.5-5.1) mmol/L Chloride (98-107) mmol/L Carbon Dioxide (22-30) mmol/L Anion Gap mmol/L BUN (7-17) mg/dL Creatinine (0.52-1.04) mg/dL Est GFR (CKD-EPI)AfAm (>60 ml/min/1.73 sqM) Est GFR (CKD-EPI)NonAf (>60 ml/min/1.73 sqM) Glucose (74-99) mg/dL Lactic Ac Sepsis Rflx Plasma Lactic Acid Noe 3.8 H* (0.7-2.0) mmol/L Calcium (8.4-10.2) mg/dL Magnesium (1.6-2.3) mg/dL Total Bilirubin (0.2-1.3) mg/dL AST (14-36) U/L ALT (4-34) U/L Alkaline Phosphatase (38-126) U/L Troponin I <0.012 (0.000-0.034) ng/mL Total Protein (6.3-8.2) g/dL Albumin (3.5-5.0) g/dL Urine Color Red Urine Appearance Bloody H (Clear) Urine RBC >182 H (0-5) /hpf Urine WBC >182 H (0-5) /hpf Coronavirus (PCR) (Not Detectd) Influenza Type A RNA (Not Detectd) Influenza Type B (PCR) (Not Detectd) 01/12/22 01/12/22 01/12/22 Range/Units 08:21 08:21 09:07 WBC (3.8-10.6) k/uL RBC (3.80-5.40) m/uL Hgb (11.4-16.0) gm/dL Hct (34.0-46.0) % MCV (80.0-100.0) fL MCH (25.0-35.0) pg MCHC (31.0-37.0) g/dL RDW (11.5-15.5) % Plt Count (150-450) k/uL MPV Neutrophils % % Lymphocytes % % Monocytes % % Eosinophils % % Basophils % % Neutrophils # (1.3-7.7) k/uL Lymphocytes # (1.0-4.8) k/uL Monocytes # (0-1.0) k/uL Eosinophils # (0-0.7) k/uL Basophils # (0-0.2) k/uL Manual Slide Review Hypochromasia Anisocytosis PT (9.0-12.0) sec INR (<1.2) APTT (22.0-30.0) sec Sodium (137-145) mmol/L Potassium (3.5-5.1) mmol/L Chloride (98-107) mmol/L Carbon Dioxide (22-30) mmol/L Anion Gap mmol/L BUN (7-17) mg/dL Creatinine (0.52-1.04) mg/dL Est GFR (CKD-EPI)AfAm (>60 ml/min/1.73 sqM) Est GFR (CKD-EPI)NonAf (>60 ml/min/1.73 sqM) Glucose (74-99) mg/dL Lactic Ac Sepsis Rflx Y Plasma Lactic Acid Noe (0.7-2.0) mmol/L Calcium (8.4-10.2) mg/dL Magnesium (1.6-2.3) mg/dL Total Bilirubin (0.2-1.3) mg/dL AST (14-36) U/L ALT (4-34) U/L Alkaline Phosphatase (38-126) U/L Troponin I (0.000-0.034) ng/mL Total Protein (6.3-8.2) g/dL Albumin (3.5-5.0) g/dL Urine Color Urine Appearance (Clear) Urine RBC (0-5) /hpf Urine WBC (0-5) /hpf Coronavirus (PCR) Not Detected (Not Detectd) Influenza Type A RNA Not Detected (Not Detectd) Influenza Type B (PCR) Not Detected (Not Detectd) Disposition Clinical Impression: UTI (urinary tract infection), Sepsis, Fracture of ramus of left pubis, Fracture of distal end of left humerus, Sacral fracture Disposition: ADMITTED IP TO THIS HOSP Condition: Fair Referrals: Dee Marcus MD [Primary Care Provider] - 1-2 days Procedures - Orthopedic Splinting/Casting Injury #1 Side: left Upper Extremity Injury Location: long arm, elbow Upper Extremity Immobilizer: sling/shoulder immobilizer, posterior splint, synthetic pre-padded splint
[2022-01-12] MEDS ORDERED: SODIUM CHLORIDE 0.9% 1,000 ML IV SCH (12:30)
[2022-01-12] MEDS ORDERED: ACETAMINOPHEN TAB 500 MG TAB PO PRN (15:13)
[2022-01-12 16:23] LABS: Bacteria,Urine Rare /hpf; Budding Yeast,Urine Many /hpf; RBC,Urine >182 /hpf (0-5); WBC,Urine >182 /hpf (0-5)
[2022-01-12 16:27] LABS: Appearance,Urine Bloody (Clear); Color,Urine Red
--- NOTE | 2022-01-12 17:00 | CT ---
EXAMINATION TYPE: CT elbow LT wo con CT DLP: 299.1 mGycm, Automated exposure control for dose reduction was used. DATE OF EXAM: 01/12/2022 4:48 PM COMPARISON: Extremity radiograph same day. CLINICAL INDICATION:Female, 76 years old with history of condylar fracture, condylar fracture TECHNIQUE: Axial images were obtained of the left elbow without the use of IV contrast. Additional c oronal and sagittal reformatted images and soft tissue and bone window were obtained for review. 3-D reconstruction was created on a separate workstation. FINDINGS: There is comminuted fracture through the distal left humerus with intra-articular extension into the trochlear groove. Fracture line extends through the medial and lateral supracondylar region . No radiopaque foreign bodies. The radius and ulna appear intact. No significant displacement there is some shortening however. Mild soft tissue edema throughout the elbow. There is a small joint effus ion. IMPRESSION: Comminuted distal left humerus fracture with intra-articular extension.
[2022-01-12] MEDS ORDERED: SUCRALFATE 1 GM TAB PO SCH (17:30)
[2022-01-12] MEDS: HYDROcodone/APAP 5-325MG 1 EACH TAB PO PRN (17:57)
[2022-01-12 18:58] LABS: Glucose,Whole Blood 112 mg/dL (70-110)
[2022-01-12] MEDS ORDERED: PIPERACILLIN-TAZOBACTAM 3.375 GM in SODIUM CHLORIDE 0.9% 100 ML IVPB STA (19:18)
--- NOTE | 2022-01-12 19:29 | HP ---
HISTORY AND PHYSICAL CHIEF COMPLAINT: Fall and pelvis and humerus fracture. HISTORY OF PRESENT ILLNESS: This 76-year-old woman with a past medical history of multiple medical issues, including hypertension and hyperlipidemia, being followed by Dr. Marcus in the outpatient setting, apparently had a fall in the outpatient setting. The patient developed a left humerus fracture and also a pelvis fracture. The x-ray of the pelvis was reviewed personally by me. Patient also had a CT scan of the abdomen and pelvis that showed extraperitoneal hemorrhage and fluid within the pelvis as well as fracture of the left inferior pubic ramus and superior pubic ramus fracture also. The patient is admitted for further evaluation and treatment. Patient is complaining of severe pain. There is no history of any fever, rigor or chills. PAST MEDICAL HISTORY: History includes hypertension hyperlipidemia. HOME MEDICATIONS: Reviewed. They include Nitrostat. Doses and the rest of the medications are noted. ALLERGIES: MORPHINE. FAMILY HISTORY: History of coronary artery disease. SOCIAL HISTORY: Previous history of smoking. REVIEW OF SYSTEMS: Fourteen-point review of systems negative except as mentioned earlier. PHYSICAL EXAMINATION: Pulse is 98, blood pressure 93/40, respirations 16. HEENT: Conjunctivae normal. NECK: No jugular venous distention. CARDIOVASCULAR: S1, S2 muffled. RESPIRATION: Breath sounds diminished at the bases. A few scattered rhonchi. ABDOMEN: Soft. Mild diffuse tenderness in the lower part. LEGS: No edema. No swelling. NERVOUS SYSTEM: No focal deficit. Movement of the left arm and both lower limbs is limited because of pain. SKIN: No ulcer, rash, bleeding. JOINTS: No active deforming arthropathy. LABS: CBC within normal limits. Creatinine 2.06. The rest of the labs are noted. ASSESSMENT: 1. Fall and pelvis fracture as well as left humerus fracture. 2. Possible acute urinary tract infection, present on admission. 3. Moderate extraperitoneal hemorrhage and fluid within the pelvis, mostly anteriorly, secondary to fracture. 4. Hypertension. 5. Hyperlipidemia. 6. Multiple medical issues. RECOMMENDATIONS AND DISCUSSION: In this 76-year-old woman who presented with multiple complex medical issues, we will monitor the patient closely, continue the current medications, continue symptomatic treatment. Otherwise, hold antiplatelet agents. Empiric antibiotics for UTI and PT/OT evaluation, pain management. See orders for further details. Prognosis guarded. Further recommendations to follow. MMODL / IJN: [id number] /
[2022-01-12 19:43] LABS: Anisocytosis Slight; Basophils % (A) 0 %; Eosinophils # (A) 0.1 k/uL (0-0.7); Eosinophils % (A) 0 %; HCT 30.4 % (34.0-46.0); Hypochromasia Moderate; Lymphocytes # (A) 0.4 k/uL (1.0-4.8); Lymphocytes % (A) 3 %; MCH 28.8 pg (25.0-35.0); MCHC 31.3 g/dL (31.0-37.0); MCV 92.1 fL (80.0-100.0); Mean Platelet Volume 9.4; Monocytes # (A) 0.4 k/uL (0-1.0); Monocytes % (A) 3 %; Neutrophils # (A) 11.4 k/uL (1.3-7.7); Neutrophils % (A) 92 %; Platelet Count 134 k/uL (150-450); RBC 3.31 m/uL (3.80-5.40); RDW 16.1 % (11.5-15.5); WBC 12.4 k/uL (3.8-10.6)
[2022-01-12 19:47] LABS: HGB 9.5 gm/dL (11.4-16.0)
[2022-01-12] MEDS ORDERED: ATORVASTATIN 80 MG TAB PO SCH (20:00)
[2022-01-12 20:02] LABS: Band Neutrophils % 19 %; Lymphocytes # (M) 0.74 k/uL (1.0-4.8); Metamyelocytes # (M) 0.37 k/uL (0); Metamyelocytes % 3 %; Monocytes # (M) 0.62 k/uL (0-1.0); Neutrophils % (M) 67 %; Nucleated Red Blood Cells 0 /100 WBC (0-0); Total Cells Counted 100
--- NOTE | 2022-01-12 20:12 | XR ---
EXAMINATION TYPE: XR chest 1V portable DATE OF EXAM: 01/12/2022 7:46 PM COMPARISON: Chest radiographs from 09/08/2021 TECHNIQUE: XR chest 1V portable Frontal view of the chest. CLINICAL INDICATION:Female, 76 years old with history of possible sepsis; FINDINGS: Lungs/Pleura: There is no evidence of pleural effusion, focal consolidation, or pneumothorax. Scatte red subcentimeter pulmonary nodules are seen throughout the lungs similar to prior. Pulmonary vascularity: Unremarkable. Heart/mediastinum: Cardiomediastinal silhouette is unremarkable. Musculoskeletal: No acute osseous pathology. Remote appearing left proximal humerus fracture. IMPRESSION: 1. No acute cardiopulmonary disease/process. 2. Scattered pulmonary nodules which are grossly unchanged from prior.
--- NOTE | 2022-01-12 20:30 | P.EN ---
Notified of the A team at 7:00 pm. Arrived on the scene shortly after. Reviewed the chart and discussed the case with the RN. The patient who is a resident of [facility] had presented to the emergency room earlier today after a fall. She was diagnosed with pelvic fractures along with urosepsis with lactic acidosis and was admitted to the medicine service. A computed tomography scan was subsequently ordered which revealed a moderate extraperitoneal hemorrhage suspected secondary to pelvic fractures. Upon arrival at the scene, the patient's vitals were 86/54, SpO2 95% on 2 L nasal cannula oxygen, and pulse 95. The patient reported 10 out of 10 suprapubic and left hip discomfort. She denied experiencing chest discomfort or shortness of breath. Reported pain with movement of her left leg. Denied leg numbness or tingling. The patient's lactic acid was noted to be worsening, most recent 4.5 up from 2.8. General: Non-toxic, in no acute distress, appears stated age, normal weight HEENT: NC/AT, anicteric sclerae, moist conjunctiva, no lid-lag, PERRLA Cardiovascular: S1/S2 wnl, tachycardic, no murmurs, rubs, or gallops Lungs: Clear to auscultation, normal respiratory effort, no accessory muscle use Abdominal: Soft, moderate suprapubic tenderness, non-distended, no guarding, rebound, or rigidity Skin: Warm, dry Extremities: No edema or contractures Psychiatric: Alert and oriented to person only, appropriate affect Neuro: CN II-XII grossly intact, Strength 5/5 in rakel UEs, 4/5 for RLE, and 2/5 for LLE due to pain, Speech intact, Sensation to light touch grossly intact throughout Assessment/plan Shock, septic versus hemorrhagic -Stat CBC ordered -Empiric IV Zosyn for broad-spectrum coverage ordered -Patient received 2-1/2 L of IV fluids in the emergency room -1 additional IV fluid normal saline bolus ordered -Primary team notified
[2022-01-12] MEDS ORDERED: DONEPEZIL 10 MG TAB PO SCH (21:00)
[2022-01-12] MEDS ORDERED: QUEtiapine 25 MG TAB PO SCH (21:00)
[2022-01-12 21:16] LABS: Glucose,Whole Blood 75 mg/dL (70-110)
--- NOTE | 2022-01-12 21:38 | CT ---
EXAMINATION TYPE: CT abdomen pelvis wo con CT DLP: 679.40 mGycm, Automated exposure control for dose reduction was used. DATE OF EXAM: 01/12/2022 8:39 PM COMPARISON: CT abdomen pelvis same day earlier. CLINICAL INDICATION:Female, 76 years old with history of retroperitoneal hematoma. TECHNIQUE: Standard CT of the abdomen and pelvis without IV or oral contrast. Lack of IV or oral co ntrast limits evaluation of solid and hollow organ viscera. Coronal and sagittal reformats were perfo rmed. FINDINGS: LOWER CHEST: Scattered calcified granulomas are present in the lung. Partially calcified lymph nodes are seen within the mediastinum and pulmonary remington. Dependent mobile atelectasis most pronounced in t he left. ABDOMEN LIVER: Multiple subcentimeter hypoattenuating structures are demonstrated throughout the liver, which are too small to accurately characterize but statistically likely to represent simple hepatic cysts GALLBLADDER AND BILE DUCTS: Layering increased densities within the lumen consistent with gallstones are present. PANCREAS: Unremarkable. SPLEEN: Scattered calcified granulomas. ADRENAL GLANDS: Unremarkable. KIDNEYS AND URETERS: No evidence of hydronephrosis or renal calculus. PELVIS BLADDER: Urinary bladder is collapsed. Bahena catheter is in place. Gas is seen within the bladder lum en. REPRODUCTIVE: Unremarkable. ABDOMEN & PELVIS STOMACH AND BOWEL: Small hiatal hernia, duodenum is unremarkable. No evidence of bowel obstruction. PERITONEUM: No evidence of pneumoperitoneum. Mild free fluid in the pelvis. VASCULATURE: No evidence of aortic aneurysm. 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 Moderate atherosclerosis of the arterial vasculature. MUSCULOSKELETAL: Redemonstration of acute fractures of the left superior and inferior pubic ramus wit h additional fracture through the left sacrum. There is perivesicular space of Retzius streaky blood products which are not grossly changed from prior. Additional left lateral pelvic wall/obturator bakari aditya is present. Hypertrophic facet arthropathy with grade 1 anterolisthesis L4-L5. LYMPH NODES: No gross evidence for lymphadenopathy. SOFT TISSUE/ABDOMINAL WALL: Unremarkable IMPRESSION: 1. Similar appearance of extraperitoneal blood products most pronounced in the pelvis left sacral and perivesicular space of Retzius. 2. Similar appearance of left inferior and superior pubic rami segmental fractures with minimal displ acement. 3. Similar left sacrum vertical fracture.
[2022-01-13 03:02] VITALS: RESP 16; TEMP 98.3
[2022-01-13] MEDS: HYDROcodone/APAP 5-325MG 1 EACH TAB PO PRN (03:25)
[2022-01-13 04:02] VITALS: BP 92/46; PULSE 104
[2022-01-13] MEDS ORDERED: PANTOPRAZOLE 40 MG TABLET PO SCH (07:30)
[2022-01-13] MEDS ORDERED: amLODIPine 10 MG TAB PO SCH (09:00)
[2022-01-13] MEDS ORDERED: DOCUSATE 100 MG CAP PO SCH (09:00)
--- NOTE | 2022-01-18 21:40 | CDI ---
Documentation Clarification Form Date: 01/18/2022 09:37:21 PM From: Daniel Cunha Phone: Admit Date: 01/12/2022 12:01:00 PM Patient Name: Antonina Garcia Visit Number: [id number] Discharge Date: 01/13/2022 03:40:00 AM ATTENTION: The Clinical Documentation Specialists (CDI) and [facility] Coding Staff appreciate your assistance in clarifying documentation. Please respond to the clarification below the line at the bottom and electronically sign. The CDI & [facility] Coding staff will review the response and follow-up if needed. Please note: Queries are made part of the Legal Health Record. If you have any questions, please contact the author of this message via ITS. Dr. Rizo E Sheet Urosepsis/Sepsis documented which may lack sufficient clinical evidence/support in the medical record. Additional clarification is requested. History/Risk Factors: SIRS Criteria met , Documented in PN Shock, Septic vs Hemorrhage Clinical Indicators: WBC 12.4 UCX culture 3.8 vss 69/49-143- Fever 100.5- 20Urosepsis lactic Acid, Stat CBC ordered 2 units in ED Treatment: Empiric IV Zosyn for broad spectrum coverage, 0.9 ns ivfl bolus Please clarify if Sepsis is a valid diagnosis? [ ] Yes,Sepsis is present as evidence by (additional clinical support): [ ] No, Sepsis is ruled out [ ] Other (please specify diagnosis) [ ] Unable to determine not my pt MTDD
--- NOTE | 2022-01-24 12:49 | P.DS ---
Providers Date of admission: 01/12/22 12:01 Expected date of discharge: 01/12/22 Attending physician: Darrius Rosario MD Consults: 01/12/22 12:00 Consult Physician Urgent Consulting Provider: Joce Ambrosio Consult Reason/Comments: trauma Do you want consulting provider notified?: Yes Consult Physician Urgent Consulting Provider: Servando Pulido Consult Reason/Comments: Pubic rami fracture, distal humerus fracture Do you want consulting provider notified?: Yes 01/12/22 19:20 Consult Physician Stat Consulting Provider: Joce Ambrosio Consult Reason/Comments: retroperitoneal hemm. in abd.mult. fractures. repeat abdominal scan? Do you want consulting provider notified?: Yes 01/12/22 19:54 Consult Physician Stat Consulting Provider: Servando Pulido Consult Reason/Comments: Multiple pelvic fractures, retroperitoneal hemm Do you want consulting provider notified?: Yes Primary care physician: Dee Marcus Hospital Course: Final diagnosis Fallen pelvis fracture as well as left humerus fracture Possible acute urinary tract infection, present on admission Moderate extraperitoneal hemorrhage and fluid within the pelvis, mostly anteriorly, secondary to fracture Hypertension Hyperlipidemia Multiple medical issues Discharge disposition Patient is being transferred in a stable condition with guarded prognosis to [facility] tertiary treatment center further evaluation. Patient will follow-up with Dr. Marcus in the outpatient setting upon discharge. Patient to be transported to [facility] via ACLS. Total time taken is greater than 35 minutes. Hospital course This is a 76-year-old female who was recently admitted with a fall in the outpatient setting and was found to have a left humerus fracture and also a pelvis fracture and underwent CT of the abdomen and pelvis that showed extraperitoneal hemorrhage and fluid within the pelvis as well as a fracture of the left inferior pubic ramus and superior pubic ramus with severe pain. Patient continued to have bleeding and drop in hemoglobin requiring tertiary transfer treatment and general surgery along with orthopedic surgery following an agreeable to this transfer secondary to ongoing hemorrhagic shock from her traumatic falls and fractures. Patient was accepted at [facility] in transferred from ICU for further evaluation. Please refer to previous history and physical along with other medical consultations for further HPI. Physical exam: Gen: This is a 76-year-old female [facility] resident recently suffered a fall with multiple fractures and continued bleeding. Mildly hypotensive although stable via ACLS for transfer HEENT: Head is atraumatic, normocephalic. Pupils equal, round. Sclerae is anicteric. NECK: Supple. No JVD. No lymphadenopathy. No thyromegaly. LUNGS: Clear to auscultation. No wheezes or rhonchi. No intercostal retractions. HEART: Regular rate and rhythm. No murmur. ABDOMEN: Soft. Bowel sounds are present. No masses. No tenderness. EXTREMITIES: No pedal edema. No calf tenderness. Multiple fractures noted and bed bound currently NEUROLOGICAL: Patient is awake Please refer to medication reconciliation sheet for a list of medications. The impression and plan of care has been dictated by Camelia Mcadams, Nurse Practitioner as directed. Dr. José MD I have performed a history and examination and MDM of this patient, discussed the same with the dictator, and agree with the dictator's assessment and plan as written ,documented as a scribe. Based on total visit time, I have performed more than 50% of the visit. Patient Condition at Discharge: Fair Plan - Discharge Summary Discharge Rx Participant: No New Discharge Prescriptions: No Action Sucralfate [Carafate] 1 gm PO AC-BID Omeprazole 20 mg PO BID Donepezil [Aricept] 10 mg PO HS QUEtiapine [SEROquel] 25 mg PO HS #0 HYDROcodone/APAP 5-325MG [[place] 5-325] 1 tab PO Q6HR PRN 3 Days #12 tab PRN Reason: Pain Atorvastatin [Lipitor] 80 mg PO HS@2000 Acetaminophen [Tylenol] 500 mg PO Q4H PRN PRN Reason: Pain Nitroglycerin Sl Tabs [Nitrostat] 0.4 mg SL Q5M PRN PRN Reason: Chest Pain Docusate [Colace] 100 mg PO DAILY #30 capsule amLODIPine [Norvasc] 10 mg PO DAILY Discharge Medication List Donepezil [Aricept] 10 mg PO HS 09/26/17 [History] Omeprazole 20 mg PO BID 09/26/17 [History] Sucralfate [Carafate] 1 gm PO AC-BID 09/26/17 [History] Docusate [Colace] 100 mg PO DAILY #30 capsule 09/08/21 [Rx] Nitroglycerin Sl Tabs [Nitrostat] 0.4 mg SL Q5M PRN 09/08/21 [History] HYDROcodone/APAP 5-325MG [[place] 5-325] 1 tab PO Q6HR PRN 3 Days #12 tab 09/12/21 [Rx] QUEtiapine [SEROquel] 25 mg PO HS #0 09/12/21 [Rx] Acetaminophen [Tylenol] 500 mg PO Q4H PRN 01/12/22 [History] Atorvastatin [Lipitor] 80 mg PO HS@199901/12/22 [History] amLODIPine [Norvasc] 10 mg PO DAILY 01/12/22 [History] Follow up Appointment(s)/Referral(s): Dee Marcus MD [Primary Care Provider] - 1-2 days Discharge Disposition: TRANSFER TO SHORT [facility]
--- NOTE | 2022-01-26 15:41 | CDI ---
Documentation Clarification Form Date: 01/26/2022 03:38:00 PM From: Daniel Cunha Phone: Admit Date: 01/12/2022 12:01:00 PM Patient Name: Antonina Garcia Visit Number: [id number] Discharge Date: 01/13/2022 03:40:00 AM ATTENTION: The Clinical Documentation Specialists (CDI) and [facility] Coding Staff appreciate your assistance in clarifying documentation. Please respond to the clarification below the line at the bottom and electronically sign. The CDI & [facility] Coding staff will review the response and follow-up if needed. Please note: Queries are made part of the Legal Health Record. If you have any questions, please contact the author of this message via ITS. Dr. Sandro Morel Urosepsis/Sepsis documented on ED and Operative note 01/12/22 which may lack sufficient clinical evidence/support in the medical record. Additional clarification is requested. History/Risk Factors: SIRS Criteria met. Documented in PN notes Shock, Septic vs Hemorrhage Clinical Indicators: WBC 12.4 culture 3.8 vss 69/49-143- Fever 100.5 Urosepsis lactic acid, Stat CBC ordered 2 units in ED Treatment: Empiric IV Zosyn for broad spectrum coverage, 0.9 ns ivf bolus Please clarify if Sepsis is a valid diagnosis? [ ] Yes, [insert diagnosis] is present as evidence by (additional clinical support): [ ] No, [insert diagnosis] is ruled out [ ] Other (although UTI was contributing to patient's illness, unclear if SIRS was due to infectious etiology or hemorrhagic shock) [ ] Unable to determine MTDD
--- NOTE | 2022-01-30 22:15 | CDI ---
Documentation Clarification Form Date: 01/30/2022 10:03:24 PM From: Daniel Cunha Admit Date: 01/12/2022 12:01:00 PM Patient Name: Antonina Garcia Visit Number: [id number] Discharge Date: 01/13/2022 03:40:00 AM ATTENTION: The Clinical Documentation Specialists (CDI) and [facility] Coding Staff appreciate your assistance in clarifying documentation. Please respond to the clarification below the line at the bottom and electronically sign. The CDI & [facility] Coding staff will review the response and follow-up if needed. Please note: Queries are made part of the Legal Health Record. If you have any questions, please contact the author of this message via ITS. Dr. Kaycee Kumar Urosepsis is documented which may lack sufficient clinical evidence/support in the medical record. Additional clarification is requested. History/Risk Factors: SIRS Criteria Met, Documented in PN Shock , Septic vs Hemorrhage Clinical Indicators: WBC 12.4 UCX culture 3.8 vss 69/49-143 Fever 100.5 20 Urosepsis, lactic acid. Stat CBC ordered 2 units in ED Treatment: Empiric IV Zosyn for broad spectrum coverage 1.09 ns ivfl bolus Please clarify if Urosepsis/ Sepsis is a valid diagnosis? [ ] Yes, Urosepsis/Sepsis is present as evidence by (additional clinical support): [ ] Yes, Septic Shock is present as evidence by (additional clinical support): [ ] Yes Hemorrhagic Shock is present as evidence by (additional clinical support): [ ] No, Urosepsis/Sepsis is ruled out [ ] Other (please specify diagnosis) [ ] Unable to determine MTDD
--- NOTE | 2022-02-03 10:12 | CDI ---
Documentation Clarification Form Date: 02/03/2022 10:00:35 AM From: Daniel Cunha Phone: Admit Date: 01/12/2022 12:01:00 PM Patient Name: Antonina Garcia Visit Number: [id number] Discharge Date: 01/13/2022 03:40:00 AM ATTENTION: The Clinical Documentation Specialists (CDI) and [facility] Coding Staff appreciate your assistance in clarifying documentation. Please respond to the clarification below the line at the bottom and electronically sign. The CDI & [facility] Coding staff will review the response and follow-up if needed. Please note: Queries are made part of the Legal Health Record. If you have any questions, please contact the author of this message via ITS. Dr. Sandro Morel UTI with Sepsis is documented throughout the Record which may lack sufficient clinical evidence/support in the medical record. Additional clarification is requested. History/Risk Factors: SIRS Criteria Med. Documented in PN Shock, Septic vs Hemorrhage Clinical Indicators: WBC 12.4 UCX culture3.8 vss 69/49-143- Fever 100.5 20 UTI with Sepsis, Lactic Acid, Stat CBC order 2 units in ED Treatment: IV Zosyn for broad spectrum coverage. 0.9 ns ivfl bolus given Please clarify if UTI with Sepsis with Septic Shock or Hemorrhagic is a valid diagnosis? [ ] Yes, UTI with Sepsis is present as evidence by (additional clinical support): [ ] Yes, Septic Shock i is present as evidence by (additional clinical support): [ ] Yes, Hemorrhagic Shock is present as evidence by (additional clinical support): [ ] No, UTI with Sepsis is ruled out [ ] Other (please specify diagnosis) [ ] Unable to determine MTDD
--- NOTE | 2022-02-03 10:19 | CDI ---
Documentation Clarification Form Date: 02/03/2022 10:00:00 AM From: Daniel Cunha Admit Date: 01/12/2022 12:01:00 PM Patient Name: Antonina Garcia Visit Number: [id number] Discharge Date: 01/13/2022 03:40:00 AM ATTENTION: The Clinical Documentation Specialists (CDI) and [facility] Coding Staff appreciate your assistance in clarifying documentation. Please respond to the clarification below the line at the bottom and electronically sign. The CDI & [facility] Coding staff will review the response and follow-up if needed. Please note: Queries are made part of the Legal Health Record. If you have any questions, please contact the author of this message via ITS. Dr. Kaycee Kumar UTI with Sepsis is documented throughout the Record which may lack sufficient clinical evidence/support in the medical record. Additional clarification is requested. History/Risk Factors: SIRS Criteria Med. Documented in PN Shock, Septic vs Hemorrhage Clinical Indicators: WBC 12.4 UCX culture3.8 vss 69/49-143- Fever 100.5 20 UTI with Sepsis, Lactic Acid, Stat CBC order 2 units in ED Treatment: IV Zosyn for broad spectrum coverage. 0.9 ns ivfl bolus given Please clarify if UTI with Sepsis with Septic Shock or Hemorrhagic is a valid diagnosis? [ ] Yes, UTI with Sepsis is present as evidence by (additional clinical support): [ ] Yes, Septic Shock i is present as evidence by (additional clinical support): [ ] Yes, Hemorrhagic Shock is present as evidence by (additional clinical support): [ ] No, UTI with Sepsis is ruled out [ ] Other (please specify diagnosis) [ ] Unable to determine No, UTI with Sepsis is ruled out MTDD
== END 2022-01-13 03:40 | disposition short-term general hospital (02) | DRG 393 ==
LOC: EC 07:40 → 5NMEDONC 12:01 → 2SICU 20:31
PROVIDERS: ADMIT Internal Medicine; ATTEND Internal Medicine
PROC: 30233N1 Transfusion of Nonautologous Red Blood Cells into Peripheral Vein, Percutaneous Approach (ICD-10-PCS; principal; 2022-01-12)
DX: K66.1 Hemoperitoneum (principal); R57.8 Other shock; R65.10 Systemic inflammatory response syndrome (SIRS) of non-infectious origin without acute organ dysfunction; S32.10XA Unspecified fracture of sacrum, initial encounter for closed fracture; S32.592A Other specified fracture of left pubis, initial encounter for closed fracture; S42.302A Unspecified fracture of shaft of humerus, left arm, initial encounter for closed fracture; S42.402A Unspecified fracture of lower end of left humerus, initial encounter for closed fracture; I69.354 Hemiplegia and hemiparesis following cerebral infarction affecting left non-dominant side; N17.9 Acute kidney failure, unspecified; R17 Unspecified jaundice; E87.2 Acidosis; R00.0 Tachycardia, unspecified; I25.10 Atherosclerotic heart disease of native coronary artery without angina pectoris; E78.5 Hyperlipidemia, unspecified; I10 Essential (primary) hypertension; W01.0XXA Fall on same level from slipping, tripping and stumbling without subsequent striking against object, initial encounter; Z82.49 Family history of ischemic heart disease and other diseases of the circulatory system; Z87.891 Personal history of nicotine dependence; Z88.5 Allergy status to narcotic agent
CPT/HCPCS: 29105; 36415; 70450; 71045; 72125; 73502; 74176; 80053; 81001; 83605; 83735; 84484; 85025; 85610; 85730; 86850; 86900; 86901; 86920; 87040; 87077; 87086; 87186; 87502; 87635; 96361; 96365; 96375; 99285